=== PATIENT | male | born 1950 | race Caucasian/White ===

== ENCOUNTER 2018-03-23 19:43 | Emergency (ER) | payer OTHER, MEDICAID ==
[~2018-03-23] VITALS: Ht 182.9 cm; Wt 77.3 kg
[2018-03-23 20:12] VITALS: Ht 182.9 cm; Wt 77.3 kg
[2018-03-23 20:46] LABS: BASOPHILS 0.3 % (0-2); EOSINOPHILS 1.1 % (0-7); HEMATOCRIT 45.1 % (42.0-54.0); HEMOGLOBIN 14.2 g/dL (13.5-17.5); IMMATURE GRANULOCYTES 0.3 % (0-5); LYMPHOCYTES 10.6 % (15-50); MCH 22.8 pg (26.0-34.0); MCHC 31.5 g/dL (31.0-37.0); MCV 72.3 fL (80.0-100.0); MEAN PLATELET VOLUME 10.1 fL (7.4-10.4); MONOCYTES 4.3 % (2-11); NEUTROPHILS 83.4 % (40-80); PLATELET COUNT 272 10x3/uL (130-400); RBC 6.24 10x6/uL (4.20-6.10); RDW 20.2 % (11.5-14.5); WBC 10.7 10x3/uL (4.8-10.8)
[2018-03-23 20:49] LABS: APPEARANCE CLEAR (CLEAR); BILIRUBIN NEGATIVE (NEGATIVE); COLOR YELLOW (YELLOW); GLUCOSE NEGATIVE (NEGATIVE); KETONE NEGATIVE (NEGATIVE); NITRITE NEGATIVE (NEGATIVE); PROTEIN 3+ mg/dL (NEGATIVE); RED CELLS - URINE OCC /hpf (0-5); SPECIFIC GRAVITY 1.015 (1.005-1.020); UROBILINOGEN NORMAL (NORMAL)
[2018-03-23 20:49] LABS: ALBUMIN 2.6 g/dL (3.4-5.0); ALKALINE PHOSPHATASE 323 U/L (46-116); ALT (SGPT) 41 U/L (10-68); BILIRUBIN - TOTAL 1.27 mg/dL (0.2-1.3); CALC OSMOLALITY 279 mosm/kg (275-300); CALCIUM 8.9 mg/dL (8.5-10.1); CHLORIDE - SERUM 100 mmol/L (98-107); GLUCOSE 103 mg/dL (74-106); POTASSIUM - SERUM 4.1 mmol/L (3.5-5.1); PROTEIN - SERUM 7.7 g/dL (6.4-8.2); SODIUM 137 mmol/L (136-145); UREA NITROGEN 30 mg/dL (7-18); eGFR NON AFRICAN AMERICAN 79 mL/min (90-120)
[2018-03-23 20:50] LABS: WHITE CELLS - URINE OCC /hpf (0-5)
[2018-03-23] MEDS ORDERED: FUROSEMIDE20 MG PO (21:59)
[2018-03-23 23:11] VITALS: BP 186/107
== END 2018-03-23 23:11 | disposition home or self-care (01) ==
LOC: D.ER 19:43
PROVIDERS: Emergency Medicine
DX: R10.9 Unspecified abdominal pain (principal); I50.9 Heart failure, unspecified

== ENCOUNTER 2018-09-19 11:24 | Inpatient (IN) | payer OTHER, MEDICAID ==
[2018-09-19] VITALS (14 sets, daily range): BP systolic 163–197; BP diastolic 92–120; BMI 26.3
[~2018-09-19] VITALS: Ht 182.9 cm; Wt 69.6 kg
[~2018-09-19 11:24] MED LIST: FUROSEMIDE20 MG PO
[2018-09-19 12:25] LABS: BASOPHILS 0.1 % (0-2); EOSINOPHILS 0.3 % (0-7); HEMATOCRIT 43.2 % (42.0-54.0); HEMOGLOBIN 14.4 g/dL (13.5-17.5); IMMATURE GRANULOCYTES 0.3 % (0-5); LYMPHOCYTES 7.6 % (15-50); MCHC 33.3 g/dL (31.0-37.0); MCV 75.1 fL (80.0-100.0); MONOCYTES 7.6 % (2-11); NEUTROPHILS 84.1 % (40-80); RBC 5.75 10x6/uL (4.20-6.10); RDW 23.3 % (11.5-14.5); WBC 11.8 10x3/uL (4.8-10.8)
[2018-09-19 12:28] LABS: PLATELET COUNT 200 10x3/uL (130-400)
[2018-09-19 12:42] LABS: ALBUMIN 2.9 g/dL (3.4-5.0); ANION GAP 15.1 mmol/L (8-16); BILIRUBIN - TOTAL 2.84 mg/dL (0.2-1.3); CALCIUM 9.3 mg/dL (8.5-10.1); CARBON DIOXIDE 24.8 mmol/L (21.0-32.0); CREATININE - SERUM 1.5 mg/dL (0.6-1.3); POTASSIUM - SERUM 3.9 mmol/L (3.5-5.1); PROTEIN - SERUM 6.7 g/dL (6.4-8.2)
--- NOTE | 2018-09-19 13:00 | NUR ---
PATIENT CLEANED, DRIED FECES TO BOTH LEGS RIGHT FOOT AND BUTTOCKS. PATIENT ROLLED, STAGE 1-2 BREAKDOWN NOTED TO COCCYX, STAGE 2-3 BREAKDOWN NOTED TO SCROTUM AND BOTH GLUTEELS. PATIENT CLEANED AND ALL LINEN CHANGED.
--- NOTE | 2018-09-19 14:05 | NUR ---
IN AND OUT CATH FOR URINE SAMPLE DONE, 500CC YELLOW URINE EMPTIED FROM BLADDER, SAMPLE TO LAB.
[2018-09-19 14:16] LABS: UDS - AMPHET NEGATIVE QUAL (NEGATIVE); UDS - BARB NEGATIVE QUAL (NEGATIVE); UDS - BENZO NEGATIVE QUAL (NEGATIVE); UDS - COCAINE NEGATIVE QUAL (NEGATIVE); UDS - OPIATE NEGATIVE QUAL (NEGATIVE); UDS - PCP NEGATIVE QUAL (NEGATIVE); UDS - THC NEGATIVE QUAL (NEGATIVE)
[2018-09-19 14:29] LABS: APPEARANCE CLEAR (CLEAR); BACTERIA FEW /hpf (NONE SEEN); BILIRUBIN NEGATIVE (NEGATIVE); COLOR YELLOW (YELLOW); EPITHELIAL CELLS 0-5 /hpf (0-5); GLUCOSE NEGATIVE (NEGATIVE); KETONE NEGATIVE (NEGATIVE); MUCUS <1+ /lpf (NONE SEEN); NITRITE NEGATIVE (NEGATIVE); PROTEIN TRACE mg/dL (NEGATIVE); RED CELLS - URINE 0-5 /hpf (0-5); SPERMATOZOA RARE /hpf (NONE SEEN); UROBILINOGEN NORMAL (NORMAL); WHITE CELLS - URINE OCC /hpf (0-5)
[2018-09-19 18:17] LABS: CREATINE KINASE 1148 UL (21-232)
[2018-09-19 18:18] LABS: CKMB 11.3 U/L (0.0-3.6)
--- NOTE | 2018-09-19 19:40 | NUR ---
SECOND IV STARTED 20G RIGHT WRIST. FOLET CATH INSERTED INTO BLADDER TO GRAVITY DRAIN, YELLOW URINE RETURN NOTED.
--- NOTE | 2018-09-19 19:45 | NUR ---
PT RECIEVED FROM ER VIA STRETCHER, ASSESSMENT COMPLETED, CONFUSED, L PIV INTACT WITH 1/2 NS @ 100CC/HR, R PIV INTACT WITH DOBUTAMINE GTT @ 2.5 MCG, WILKINS PATENT TO BSD WITH CLEAR YELLOW URINE,WILL CONT TO MONITOR
--- NOTE | 2018-09-19 21:30 | NUR ---
PT REMAINS CONFUSED, PULLED OFF TELEMETRY, INTSRUCTED PT NOT TO PULL AT TUBES OR LINES, PT AGREED TO COMPLY FOR NOW
--- NOTE | 2018-09-19 23:30 | NUR ---
JEMAL LAND, B/P 182/111, ORDERS RECIEVED, D/C'D DOBUTAMINE GTT, GIVEN HYDRALAZINE PO
[2018-09-20] VITALS (13 sets, daily range): BP systolic 148–201; BP diastolic 87–122; Ht 182.9 cm; Wt 69.6 kg
--- NOTE | 2018-09-20 01:45 | NUR ---
PAGED DR LAND, B/P REMAINS HIGH, DIASTOLIC REMAINS ABOVE 100, ORDERS RECIEVED FOR CLONIDINE PO
--- NOTE | 2018-09-20 02:00 | NUR ---
PT REFUSED TO TAKE MEDICATION, EXPLAINED TO PT THE DANGERS OF EXTREMELY HIGH B/P, LEN [place] @ BEDSIDE DISCUSSING WITH PT, PT STATES HE WILL BE FINE AND THAT HE DOESNT TAKE MEDICINE
--- NOTE | 2018-09-20 02:00 | NUR ---
TRIED TO GIVE PT HIS ORAL B/P MEDICATION, PT REFUSED. AFTER EXPLANINING IMPORTANCE OF MEDICATION HE STILL REFUSED. WHEN I ASKED IF HE WOULD RATHER GET THE MEDICATION THROUGH HIS IV HE SAID "WHAT ARE YOU GONNA DO FORCE ME," I EXPLAINED THAT I COULD NOT FORCE HIM TO TAKE IT. I SPENT APX 15 MINS TRYING TO CONVINCE HIM TO TAKE THE MEDICATION AND THE BENEFITS OF IT, HE STILL REFUSED SEVERAL TIMES.
--- NOTE | 2018-09-20 02:32 | NUR ---
B/P REMAINS HIGH, GIVEN METOPROLOL 5 MG IVP
--- NOTE | 2018-09-20 03:18 | NUR ---
PT CONTINUES TO REFUSE TO TAKE PO MEDS FOR B/P, 198/117
[2018-09-20 04:54] LABS: BASOPHILS 0.2 % (0-2); EOSINOPHILS 0.6 % (0-7); HEMATOCRIT 41.8 % (42.0-54.0); HEMOGLOBIN 13.7 g/dL (13.5-17.5); IMMATURE GRANULOCYTES 0.2 % (0-5); LYMPHOCYTES 4.5 % (15-50); MCH 24.4 pg (26.0-34.0); MCHC 32.8 g/dL (31.0-37.0); MCV 74.5 fL (80.0-100.0); MONOCYTES 12.1 % (2-11); NEUTROPHILS 82.4 % (40-80); PLATELET COUNT 177 10x3/uL (130-400); RBC 5.61 10x6/uL (4.20-6.10); RDW 23.1 % (11.5-14.5); WBC 10.5 10x3/uL (4.8-10.8)
[2018-09-20 05:13] LABS: ANION GAP 12.2 mmol/L (8-16); CALCIUM 8.8 mg/dL (8.5-10.1); CARBON DIOXIDE 28.3 mmol/L (21.0-32.0); CREATININE - SERUM 1.2 mg/dL (0.6-1.3); POTASSIUM - SERUM 3.5 mmol/L (3.5-5.1)
--- NOTE | 2018-09-20 05:39 | NUR ---
PT CONTINUES TO REFUSE PO MEDS, INSTRUCTED ON RISKS
--- NOTE | 2018-09-20 07:15 | NUR ---
PATIENT BLOOD PRESSURE IS 197/121. PATIENT REFUSED MEDICATION. INSTRUCTED ON RISKS. PATIENT DISORIENTED TO PLACE AND TIME. WILL CONTINUE TO MONITOR BLOOD PRESSURE.
--- NOTE | 2018-09-20 07:18 | NUR ---
PATIENT CONTINUE TO DENY MEDICATIONS. BP IS HIGH. TEACHING WAS DONE ON RISKS OF REFUSING MEDS. PATIENT IS DISORIENTED TO PLACE AND TIME. BRIJESH ASKED MULTIPLE TIMES WHERE HE IS AT. REORIENTED TO PLACE AND TIME.
--- NOTE | 2018-09-20 09:30 | NUR ---
JENIFER PHILIP AT BEDSIDE. UPDATE GIVEN.
--- NOTE | 2018-09-20 11:00 | NUR ---
PATIENT DID NOT HAVE CLONIDINE PATCH ON. FOUND IN BED. PATIENT HAD REMOVED IT. WILL PROVIDE A NEW ONE
--- NOTE | 2018-09-20 11:30 | NUR ---
PATIENT RESTING. BLOOD PRESSURE 147/83. HR 56. WILL CONTINUE TO MONITOR.
--- NOTE | 2018-09-20 13:00 | NUR ---
PATIENT RESTING. PATIENT DENIES PO APRESOLINE. WILL CONTINUE TO MONITOR AT THIS TIME.
--- NOTE | 2018-09-20 16:00 | NUR ---
PATIENT DENIES BATH. WHEN APPROACHED TO BATHE PATIENT STATED "YOU ARE NOT GOING TO TOUCH ME"
--- NOTE | 2018-09-20 17:21 | NUR ---
REPORT GIVEN TO JITENDRA
--- NOTE | 2018-09-20 18:33 | NUR ---
RECEIVED FROM ICU TRANSFER. HE IS ALERT TO NAME AND KNOWS HE IS IN THE HOSPITAL. LEFT BKA. RIGHT FOOT WITH EDEMA 2+ PULSE IS PALPABLE BUT WEAK. RIGHT LEG IS RED TO FRONT OF IT AND APPEARS TO HAVE MULTIPLE SCRATCH LUNA ON IT. HE IS UNKEPT IN APPEARANCE WITH LONG HOPSON AND SMELLS OF URINE BUT REFUSES TO BE WASHED UP. TELEMENTRY IS ON. HE HAS IV IN RIGHT WRIST INFUSING WITH SITE CLEAR. LEFT A/C SALINE LOCK. HE HAS MULTIPLE SKIN ISSUES ACCORDING TO REPORT BUT REFUSES TO LET ME DO BODY AUDIT, STATES MAYBE LATER. F/C PATENT WITH FLORES URINE NOTED. BBS ARE CLEAR RESP EVEN WITHOUT LABOR DENIES ANY PAIN OR DISCOMFORT. BED ALARM IS ON AND BED IS LOWEST POSITION AND LOCKED. CL IN REACH AND HE IS ORIENTED ON HOW TO USE IT.
--- NOTE | 2018-09-20 20:01 | NUR ---
REPORT RECIEVED AND ROUNDING COMPLETE. PATIENT SITTING UP IN BED, AT BEDSIDE, PATIENT REQUESTING BEDPAD FOR A BOWEL MOVEMENT WHEN I GO IN THE ROOM TO PUT HIM ON BEDPAN PATIENT REFUSES THIS HAS HAPPENED 4 TIMES IN THE LAST 20 MINUTES. PATIENT'S STAT LOCKED FOR WILKINS CATH WAS STRETCHED OUT VERY FAR, ALITTLE BLOOD AT THE TIP OF PENIS. REPOSITIONED HIS STAT LOCK. PAT HAS A .5NS RUNNING IN RIGHT WRIST. PATIENT REFUSING TO WEAR O2 AT THIS TIME. PATIENT DENIES ANY NEEDS AT THIS TIME. CALL LIGHT WITHIN REACH AND BED IN LOWEST LOCKED POSITION.
[2018-09-21] VITALS: BP 183/98
--- NOTE | 2018-09-21 | NUR ---
BP IS ELEVATED. CLONIDINE GIVEN ORDERED.
[2018-09-21 04:00] VITALS: BP 172/93
[2018-09-21 05:02] LABS: BASOPHILS 0.2 % (0-2); EOSINOPHILS 1.9 % (0-7); HEMATOCRIT 44.9 % (42.0-54.0); HEMOGLOBIN 14.7 g/dL (13.5-17.5); IMMATURE GRANULOCYTES 0.2 % (0-5); LYMPHOCYTES 9.2 % (15-50); MCHC 32.7 g/dL (31.0-37.0); MONOCYTES 9.8 % (2-11); NEUTROPHILS 78.7 % (40-80); PLATELET COUNT 196 10x3/uL (130-400); RBC 5.87 10x6/uL (4.20-6.10); RDW 23.6 % (11.5-14.5)
[2018-09-21 05:04] LABS: INR 1.36 (0.85-1.17); PROTIME 16.2 SECONDS (11.6-15.0)
[2018-09-21 05:06] LABS: MCV 76.5 fL (80.0-100.0)
[2018-09-21 05:48] LABS: ALBUMIN 2.5 g/dL (3.4-5.0); ALKALINE PHOSPHATASE 174 U/L (46-116); ALT (SGPT) 10 U/L (10-68); BILIRUBIN - TOTAL 1.45 mg/dL (0.2-1.3); CALC OSMOLALITY 291 mosm/kg (275-300); CALCIUM 9.6 mg/dL (8.5-10.1); CARBON DIOXIDE 28.2 mmol/L (21.0-32.0); CHLORIDE - SERUM 106 mmol/L (98-107); CREATININE - SERUM 1.2 mg/dL (0.6-1.3); GLUCOSE 78 mg/dL (74-106); LDH 339 U/L (85-227); PHOSPHOROUS 3.4 mg/dL (2.5-4.9); PROTEIN - SERUM 6.2 g/dL (6.4-8.2); SODIUM 142 mmol/L (136-145); UREA NITROGEN 40 mg/dL (7-18); eGFR NON AFRICAN AMERICAN 64 mL/min (90-120)
[2018-09-21 05:49] LABS: CREATINE KINASE 345 UL (21-232)
[2018-09-21 05:50] LABS: CKMB 2.4 U/L (0.0-3.6)
--- NOTE | 2018-09-21 06:55 | NUR ---
REPORT RECEIVED. HE HAS LEFT BKA. RIGHT FRONT OF LEG IS SWOLLEN AND RED. APPEARS TO HAVE SOME SCRATCHES PRESENT. HE STATES LET ME REST SOME MORE. CL IN REACH. F/C PATENT WITH FLORES URINE. BED IN LOWEST POSITION AND LOCKED.
--- NOTE | 2018-09-21 09:15 | NUR ---
NURSE NOTIFIED IR OF PT REFUSING PROCEDURE AT THIS TIME. INFORMED NURSE THIS PROCEDURE WILL NOT BE DONE TODAY IF HE IS REFUSING WE HAVE A FULL SCHEDULE AND HE IS GIVING UP HIS SPOT. MAY RESCHEDULE FOR MONDAY IF PT IS AGREEABLE.
[2018-09-21 09:27] VITALS: BP 154/88
--- NOTE | 2018-09-21 09:30 | NUR ---
BED BATH AND LINEN CHANGE DONE. ALL DRESSINGS CHANGED TO WOUNDS ALL ON RIGHT SIDE OF BODY. HE IS COOPERATIVE WITH CARE BUT WEAK AND UNABLE TO TURN OVER WITHOUT ASSIST
--- NOTE | 2018-09-21 09:45 | NUR ---
DR BROWN IS AWARE OF HIS REFUSAL TO SIGN CONSENT. HE WAS GIVEN BREAKFAST TRAY AFTER HIS REFUSAL
[2018-09-21 13:45] VITALS: BP 171/84
--- NOTE | 2018-09-21 14:44 | MORECARE ---
CASE MANAGEMENT DISCHARGE SUMMARY PATIENT: HARRIS RAYO UNIT: [id number] ADM DATE: 09/19/18 AGE: 68 : 51 SEX: M ROOM/BED: D.2104 AUTHOR: GUSTABO CALLE PHYSICIAN: REFERRING PHYSICIAN: MILAGRO FORTE MD DATE OF SERVICE: 09/21/18 Discharge Plan Patient Name: HARRIS RAYO [facility] [facility] 1950 Planned Disposition: Home with Home Health Anticipated Discharge Date: 09/24/18 Discharge Date: Expected LOS: 5 Initial Reviewer: [email or web address] Initial Review Date: 09/19/2018 Generated: 09/21/18 3:43 pm Patient Name: HARRIS RAYO Page [phone] at 1444 All edits/amendments must be made on the electronic document DICTATION DATE: 09/21/18 144 ROOMS DIRECTOR: LNYDSAY 09/21/18 1443 RPT#: [id number] DC DATE: STATUS: ADM IN [facility] [address] [place] [address] END OF REPORT
--- NOTE | 2018-09-21 14:53 | MORECARE ---
CASE MANAGEMENT DISCHARGE SUMMARY PATIENT: HARRIS RAYO UNIT: [id number] ADM DATE: 09/19/18 AGE: 68 : 51 SEX: M ROOM/BED: D.6796 AUTHOR: ALVA,DOC PHYSICIAN: REFERRING PHYSICIAN: MILAGRO FORTE MD DATE OF SERVICE: 09/21/18 Discharge Plan Patient Name: HARRIS RAYO Facility: [facility]:[place] : 1950 Planned Disposition: Home with Home Health Anticipated Discharge Date: 09/24/18 Discharge Date: Expected LOS: 5 Initial Reviewer: [email or web address] Initial Review Date: 09/19/2018 Generated: 09/21/18 3:53 pm Comments DCP- Discharge Planning Updated by [email or web address]: Radha Love on 09/21/18 1:[address] Patient Name: HARRIS RAYO Admission Status: ER Accout number: [id number] Admission Date: 09-19-2018 : 1950 Admission Diagnosis:WEAKNESS Attending: MILAGRO FORTE Current LOS: 2 Anticipated DC Date: 09-24-2018 Planned Disposition: Home with Home Health Primary Insurance: [employer] Discharge Planning Comments: DC PLAN: Rehab vs Home with and Home Health. DC NEEDS: PT/OT Eval to see if he will participate. CM met with patient to complete initial dc planning assessment. Patient not answering questions so CM called his Peg. CM educated patient and Peg on the CM role and verbal consent given by patient's to complete assessment. CM verified patient's address, phone number, and emergency contact phone numbers. Patient lives at home with her. She reports for the past year and a half the patient has basically sat in his recliner 95 % of the time with 75% sleeping. She reports he gets up to go to the bathroom or to the refrigerator. She reports he basically crawls around when he does get out of the chair. Cm asked If he was able to get dressed or take his clothes off and she said he just doesn't wear clothes. He sits around naked (which is what he has done for a long time). At discharge she feel he would benefit from rehab but she is not sure he will agree to go. Patient shook his head yes when I asked him, however CM is not sure he will participate in therapy as he has been refusing most thing this far during his stay. Order received for OT/PT emmanuelal to see if he will participate. If he will not participate in therapy neither his insurance or a rehab will accept him. He is a managed medicare and will require authorization. Cm told the if he did not participate than he would have to return home and we could try home Health. She does not have a preference on HH and she cant remember who they have used in the past. Patient's reports she will transport him home at time of discharge if he is able to get in the car. If not he may require ambulance transport home. CM will continue to follow and will assist as needed with dc plans/needs. Security Business Analyst: Radha Love RN, [facility] DCPIA - Discharge Planning Initial Assessment Updated by [id number]: Radha Love on 09/21/18 2:45 pm * How many steps to enter\exit or inside your home? * PCP Dr. Scott * Pharm[facility] on [address] * Preadmission Environment Home with Family * ADLs Partial Dependent * Partial ADLs (Assistance needed) Bathing Dressing Medication Management Toileting * Equipment Bedside Commode Cane * List name and contact numbers for known caregivers / representatives who currently or will assist patient after discharge: Peg Rayo - - [phone] * Verbal permission to speak to the caregivers and representatives has been obtained from the patient. Yes * Community resources currently utilized None * Additional services required to return to the preadmission environment? Yes * Can the patient safely return to the preadmission environment? Yes * Has this patient been hospitalized within the prior 30 days at any hospital? No Last DP export: 09/21/18 1:44 pm Patient Name: HARRIS RAYO Page [id number] at 1453 All edits/amendments must be made on the electronic document DICTATION DATE: 09/21/187 AGRICULTURAL EDUCATION PROFESSOR: LYNDSAY 09/21/181452 RPT#: [id number] DC DATE: STATUS: ADM IN [facility] [address] [place] [address] END OF REPORT
[2018-09-21 17:18] VITALS: BP 179/93
[2018-09-21 20:00] VITALS: BP 151/75
--- NOTE | 2018-09-21 20:07 | NUR ---
EVENING ROUNDS COMPLETED. REPORT RECEIVED. PT SITTING UP IN BED WITH EYES OPEN, RR EVEN AND UNLABORED. BED IN LOW POSITION. 60 SINUS RHYTMN ON TELEMETRY. INTRODUCED SELF TO PT. PT DENIES FURTHER NEEDS AT THIS TIME. NO S/S OF DISTRESS NOTED. CALL LIGHT IN REACH. WILL CTM./
[2018-09-22] VITALS: BP 128/63
--- NOTE | 2018-09-22 01:30 | NUR ---
PT HAS MADE MULTIPLE ATTEMPTS TO GET OUT OF BED, STATING HE WANTS TO SIT IN THE BATHROOM. PT DENIES NEEDING TO HAVE A BOWEL MOVEMENT. I INSTRUCTED PT HE NEEDS TO STAY IN BED HE IS A HIGH FALL RISK. PT LOUDLY STATES BACK I DONT WANT TO GET BACK IN BED AND ASKED TO HANG OFF THE SIDE OF THE BED TO WHICH I THEN STATED THE PATIENT COULD NOT HAS OBVIOUS ISSUES WITH MAINTAINING HIS BALANCE. PT LATER LAID BACK INTO THE BED AND COMPLIED. THE DAVID ALARM IS CURRENTLY ON AND THE DOOR IS OPEN, WILL CTM.
--- NOTE | 2018-09-22 03:52 | NUR ---
I have reviewed this patient and I concur with the Shift Assessment completed by the Licensed Practical Nurse today this shift.
[2018-09-22 04:00] VITALS: BP 170/104
[2018-09-22 05:15] LABS: BASOPHILS 0.1 % (0-2); EOSINOPHILS 2.8 % (0-7); HEMATOCRIT 42.3 % (42.0-54.0); HEMOGLOBIN 13.6 g/dL (13.5-17.5); IMMATURE GRANULOCYTES 0.2 % (0-5); LYMPHOCYTES 12.2 % (15-50); MCH 24.4 pg (26.0-34.0); MCHC 32.2 g/dL (31.0-37.0); MCV 75.9 fL (80.0-100.0); MONOCYTES 7.5 % (2-11); NEUTROPHILS 77.2 % (40-80); PLATELET COUNT 159 10x3/uL (130-400); RBC 5.57 10x6/uL (4.20-6.10); RDW 23.4 % (11.5-14.5); WBC 8.4 10x3/uL (4.8-10.8)
--- NOTE | 2018-09-22 05:22 | NUR ---
ADMINISTERED ORDERED CATAPRES 0.1 MG PO FOR PT BLOOD PRESSURE OF 170/106
[2018-09-22 05:33] LABS: ALBUMIN 2.2 g/dL (3.4-5.0); ANION GAP 9.6 mmol/L (8-16); BILIRUBIN - TOTAL 1.17 mg/dL (0.2-1.3); CALCIUM 8.7 mg/dL (8.5-10.1); CREATININE - SERUM 1.2 mg/dL (0.6-1.3); POTASSIUM - SERUM 3.6 mmol/L (3.5-5.1); PROTEIN - SERUM 5.8 g/dL (6.4-8.2)
--- NOTE | 2018-09-22 07:00 | NUR ---
RECEIVED REPORT. ASSUMED CARE OF PATIENT. CALL LIGHT WITHIN REACH. BED ALARM TO FULL SURFACE AREA PATENT. NO DISTRESS. RESP EVEN AND UNLABORED. PATIENT ASKING FOR A BEER THIS AM.
--- NOTE | 2018-09-22 08:30 | NUR ---
ASSISTED TO PULL PATIENT UP IN BED FOR AM MEAL.
[2018-09-22 08:50] VITALS: BP 174/107
[2018-09-22 12:30] VITALS: BP 165/91
--- NOTE | 2018-09-22 15:15 | NUR ---
PATIENT ATTEMPTING TO GET OOB TO GO TO THE RESTROOM. EXPLAINED TO PATIENT THAT IT WAS NOT SAFE FOR HIM TO GET UP WITHOUT PROSTEHSIS AND THAT WE DON'T KNOW HOW STRONG HE IS AFTER FALLING AT HOME. THIS COPS OFFERED A BEDPAN. PATIENT REFUSED BEDPAN AND CONTINUED TO TRY AND GET OOB. THIS COPS CALLED FOR UNIT CHARGE NURSE. CHARGE NURSE DECIDED TO TRY AND PUT PATIENT ON BEDSIDE COMMODE. UPON TRANSFERRING PATIENT TO BEDSIDE COMMODE, PATIENT GRABBED THE BEDRAILS AND BUCKLED HIS LEGS LEAVING ALL WEIGHT ON THIS COPS AND THE CHARGE NURSE. PATIENT LIFTED BACK ONTO BED AND ASSISTANCE CALLED FOR REPOSITIONING PATIENT AND PULLING PATIENT UP IN BED. PATIENT THEN PLACED ON BEDPAN. CALL LIGHT WITHIN REACH. NO DISTRESS.
[2018-09-22 16:36] VITALS: BP 153/90
--- NOTE | 2018-09-22 19:30 | NUR ---
EVENING ROUNDS COMPLETED. REPORT RECEIVED. PT SITTING UP IN BED WITH EYES OPEN, RR EVEN AND UNLABORED. BED IN LOW POSITION. 57 SINUS ON TELEMETRY. DAVID ALARM TURNED ON. INTRODUCED SELF TO PT. RT HAND PIV INFUSING NS ORDERED. DENIES FURTHER NEEDS AT THIS TIME. CALL LIGHT IN REACH, WILL CTM.
[2018-09-22 20:00] VITALS: BP 156/87
--- NOTE | 2018-09-22 20:56 | NUR ---
CALLED ANSWERING SERVICE FOR DR FORTE, PT REPEATEDLY MAKING ATTEMPTS TO CLIMB OUT OF BED AFTER FALL RISK EDUCATION PROVIDED TO PT.
--- NOTE | 2018-09-22 21:17 | NUR ---
RECEIVED CALL BACK FROM TUNG BAXTER NURSE PRACTICIONER, ORDERED 1 MG LORAZPEM IV PUSH EVERY 6 HOURS FOR PT AGITATION AND ANXIETY.
[2018-09-23] VITALS: BP 176/98
--- NOTE | 2018-09-23 00:03 | NUR ---
ADMINISTERED ORDERED HYDRALAZINE 5 MG IV FOR PT BLOOD PRESSURE OF 176/98. WILL CTM.
--- NOTE | 2018-09-23 01:42 | NUR ---
ADMINISTERED ORDERED CATAPRES 0.1 MG PO FOR PT BLOOD PRESSURE OF 189/76
--- NOTE | 2018-09-23 01:52 | NUR ---
I have reviewed this patient and I concur with the Shift Assessment completed by the Licensed Practical Nurse today this shift.
[2018-09-23 04:00] VITALS: BP 180/96
[2018-09-23 04:59] LABS: BASOPHILS 0.5 % (0-2); EOSINOPHILS 4.4 % (0-7); HEMATOCRIT 45.3 % (42.0-54.0); HEMOGLOBIN 14.4 g/dL (13.5-17.5); IMMATURE GRANULOCYTES 0.4 % (0-5); LYMPHOCYTES 9.3 % (15-50); MCH 24.7 pg (26.0-34.0); MCHC 31.8 g/dL (31.0-37.0); MCV 77.6 fL (80.0-100.0); MEAN PLATELET VOLUME 10.4 fL (7.4-10.4); MONOCYTES 19.4 % (2-11); PLATELET COUNT 152 10x3/uL (130-400); RBC 5.84 10x6/uL (4.20-6.10); RDW 23.5 % (11.5-14.5); WBC 7.9 10x3/uL (4.8-10.8)
--- NOTE | 2018-09-23 05:07 | NUR ---
ADMINISTERED ORDERED CATAPRES 0.1 MG PO FOR PT BLOOD PRESSURE OF 180/96
[2018-09-23 06:14] LABS: ANION GAP 15.2 mmol/L (8-16); CALCIUM 8.3 mg/dL (8.5-10.1); CARBON DIOXIDE 24.6 mmol/L (21.0-32.0); CREATININE - SERUM 1.2 mg/dL (0.6-1.3); POTASSIUM - SERUM 3.8 mmol/L (3.5-5.1)
--- NOTE | 2018-09-23 08:02 | NUR ---
PT SLOW TO RESOND THIS AM DURING ROUNDS. PT IS LAYING WITH HIS EYES CLOSEDBREATHING EVENLY. PT DENIES ANY PAIN AT THIS TIME. IV IS PATENT AND RUNNING IN THE RIGHT FOREARM WITH NORMAL SALINE AT 30. 2 L OF O2 ARE BEING USED. WILKINS IS PATENT TO THE LEFT SIDE OF THE BED AND STAT LOCK IS IN PLACE. DENIES ANY NEEDS AT THIS TIME OTHER THAN BEING LEFT ALONE. CALL LIGHT IS IN REACH AND BED IS IN LOW POSTIION.
[2018-09-23 08:55] VITALS: BP 161/93
[2018-09-23 13:01] VITALS: BP 182/112
[2018-09-23 17:59] VITALS: BP 132/65
[2018-09-23 20:00] VITALS: BP 143/72
--- NOTE | 2018-09-23 20:04 | NUR ---
EVENING ROUNDS COMPLETED. REPORT RECEIVED. PT SITTING UP IN BED WITH EYES OPEN, RR EVEN AND UNLABORED. 55 SINUS ANAND ON TELEMETRY. NO S/S OF DISTRESS NOTED. AT BEDSIDE. INTRODUCED SELF TO PT. PT DENIES FURTHER NEEDS AT THIS TIME. CALL LIGHT IN REACH. WILL CTM.
--- NOTE | 2018-09-23 21:11 | NUR ---
EVENING MEDICATIONS ADMINISTERED WITHOUT ISSUE. PT SITTING UP IN BED WITH EYES OPEN, RR EVEN AND UNLABORED. NO S/S OF DISTRESS NOTED. CALL LIGHT IN REACH. WILL CTM.
[2018-09-24] VITALS: BP 162/80; BP 163/95; BP 212/112
--- NOTE | 2018-09-24 02:56 | NUR ---
I have reviewed this patient and I concur with the Shift Assessment completed by the Licensed Practical Nurse today this shift.
[2018-09-24 04:00] VITALS: BP 190/97
[2018-09-24 04:24] LABS: ANION GAP 5.6 mmol/L (8-16); CALCIUM 8.5 mg/dL (8.5-10.1); CREATININE - SERUM 1.2 mg/dL (0.6-1.3); POTASSIUM - SERUM 3.8 mmol/L (3.5-5.1)
[2018-09-24 04:31] LABS: BASOPHILS 0.7 % (0-2); CARBON DIOXIDE 33.2 mmol/L (21.0-32.0); EOSINOPHILS 5.1 % (0-7); HEMATOCRIT 44.5 % (42.0-54.0); HEMOGLOBIN 14.1 g/dL (13.5-17.5); IMMATURE GRANULOCYTES 0.3 % (0-5); LYMPHOCYTES 10.9 % (15-50); MCH 24.4 pg (26.0-34.0); MCHC 31.7 g/dL (31.0-37.0); MCV 77.1 fL (80.0-100.0); MONOCYTES 16.6 % (2-11); NEUTROPHILS 66.4 % (40-80); PLATELET COUNT 164 10x3/uL (130-400); RBC 5.77 10x6/uL (4.20-6.10); RDW 23.3 % (11.5-14.5); WBC 6.1 10x3/uL (4.8-10.8)
--- NOTE | 2018-09-24 06:30 | NUR ---
ADMINISTERED ORDERED CATAPRES 0.1 MG PO FOR PT BLOOD PRESSURE OF 190/97
[2018-09-24 08:30] VITALS: BP 192/104
[2018-09-24 12:06] VITALS: BP 178/105
[2018-09-24 13:15] LABS: INR 1.35 (0.85-1.17); PROTIME 16.1 SECONDS (11.6-15.0)
--- NOTE | 2018-09-24 13:27 | NUR ---
Nutrition Follow-up: Diet: Regular (NPO p MN for thoracentesis) PO intake: 50% avg meal intake on 09/22 Last BM: 09/23 Wt: 194# Labs reviewed Meds reviewed Rec cardiac diet when medically feasible. [place] food preferences. RD following.
[2018-09-24 16:04] VITALS: BP 171/95
[2018-09-24 16:45] LABS: PROTEIN - BODY FLUID 2.5 G/DL
--- NOTE | 2018-09-24 17:45 | MORECARE ---
CASE MANAGEMENT DISCHARGE SUMMARY PATIENT: HARRIS RAYO UNIT: [id number] ADM DATE: 09/19/18 AGE: 68 : 52 SEX: M ROOM/BED: D.2104 AUTHOR: ALVA,DOC PHYSICIAN: REFERRING PHYSICIAN: MILAGRO FORTE MD DATE OF SERVICE: 09/24/18 Discharge Plan Patient Name: HARRIS RAYO Facility: [facility]:[place] : 1950 Planned Disposition: Home with Home Health Anticipated Discharge Date: 09/24/18 Discharge Date: Expected LOS: 5 Initial Reviewer: [email or web address] Initial Review Date: 09/19/2018 Generated: 09/24/18 6:45 pm Comments DCP- Discharge Planning Updated by [email or web address]: Alex Cavazos on 09/24/18 4:[address] Patient Name: HARRIS RAYO Encounter No: [id number] : 1950 Primary Insurance: [employer] Anticipated DC Date: 09-24-2018 Planned Disposition: NURSING HOME FACILITY External Planned Provider: TO BE DETERMINED DCP follow-up note: CM MET WITH PT AND SPOUSE IN ROOM TO DISCUSS DISCHARGE PLANNING AND NEEDS. CM UNABLE TO AWAKEN PT. PT'S SPOUSE REPORTS THE DOCTOR GAVE PT A SEDATIVE. CM DISCUSSED DISCHARGE PLANNING AND THERAPY NOTES TO DATE. PT'S SPOUSE REPORTS SHE IS NOT ABLE TO CARE FOR PT IN HIS WEAKENED STATE AT HOME AND PT WILL NEED REHAB. CM DISCUSSED AVAILABILITY OF INPATIENT AND NURSING HOME REHAB. PT'S SPOUSE WANTS TO DISCUSS OPTIONS WITH PT WHEN HE IS AWAKE. CM LEFT PT'S SPOUSE WITH HOME HEALTH PROVIDER LISTING FOR [place], CHOICE FORM AND CM CONTACT INFORMATION. PT'S SPOUSE REPORTS INABILITY TO CARE FOR PT AT HOME IN WEAKENED CONDITION. CM WAITING PT AND SPOUSE TO DISCUSS NURSING HOME REHAB OPTIONS AND MAKE A DECISION. CAMILLE Peña DCP- Discharge Planning Updated by [id number]: Radha Love on 09/21/18 1:[address] Patient Name: HARRIS RAYO Admission Status: ER Accout number: [id number] Admission Date: 09-19-2018 : 1950 Admission Diagnosis:WEAKNESS Attending: MILAGRO FORTE Current LOS: 2 Anticipated DC Date: 09-24-2018 Planned Disposition: Home with Home Health Primary Insurance: [employer] Discharge Planning Comments: DC PLAN: Rehab vs Home with and Home Health. DC NEEDS: PT/OT [facility] to see if he will participate. CM met with patient to complete initial dc planning assessment. Patient not answering questions so CM called his Peg. CM educated patient and Peg on the CM role and verbal consent given by patient's to complete assessment. CM verified patient's address, phone number, and emergency contact phone numbers. Patient lives at home with her. She reports for the past year and a half the patient has basically sat in his recliner 95 % of the time with 75% sleeping. She reports he gets up to go to the bathroom or to the refrigerator. She reports he basically crawls around when he does get out of the chair. Cm asked If he was able to get dressed or take his clothes off and she said he just doesn't wear clothes. He sits around naked (which is what he has done for a long time). At discharge she feel he would benefit from rehab but she is not sure he will agree to go. Patient shook his head yes when I asked him, however CM is not sure he will participate in therapy as he has been refusing most thing this far during his stay. Order received for OT/PT rosendo to see if he will participate. If he will not participate in therapy neither his insurance or a rehab will accept him. He is a managed medicare and will require authorization. Cm told the if he did not participate than he would have to return home and we could try home Health. She does not have a preference on HH and she cant remember who they have used in the past. Patient's reports she will transport him home at time of discharge if he is able to get in the car. If not he may require ambulance transport home. CM will continue to follow and will assist as needed with dc plans/needs. Pan Dumper: Radha Love RN, [facility] DCPIA - Discharge Planning Initial Assessment Updated by [email or web address]: Radha Love on 09/21/18 2:45 pm * How many steps to enter\exit or inside your home? * PCP Dr. Scott * [facility]acy [facility] on [address] * Preadmission Environment Home with Family * ADLs Partial Dependent * Partial ADLs (Assistance needed) Bathing Dressing Medication Management Toileting * Equipment Bedside Commode Cane * List name and contact numbers for known caregivers / representatives who currently or will assist patient after discharge: Peg Rayo - - [phone] * Verbal permission to speak to the caregivers and representatives has been obtained from the patient. Yes * Community resources currently utilized None * Additional services required to return to the preadmission environment? Yes * Can the patient safely return to the preadmission environment? Yes * Has this patient been hospitalized within the prior 30 days at any hospital? No Last DP export: 09/21/18 1:53 pm Patient Name: HARRIS RAYO Page [phone] at 1745 All edits/amendments must be made on the electronic document DICTATION DATE: 09/24/181744 STATION WORKER: LYNDSAY 09/24/181744 RPT#: [id number] DC DATE: STATUS: ADM IN [facility] [address] [place] [address] END OF REPORT
[2018-09-24 18:38] LABS: MACROPHAGES BF 18 %; NEUT - BF 34 %
--- NOTE | 2018-09-24 19:01 | NUR ---
AT REST WITH EYES CLOSED LCTA SKIN WARM AND DRY BED LOW AND LOCKED AND CALL LIGHT IS IN REACH IV TO RT FA IS SL AND WILKINS UIS TO GRAVITY WITH FLORES URINE LEFT BKA NOTED
--- NOTE | 2018-09-24 19:40 | NUR ---
B/P REPORTED RECHECK MANUALLY 189/ HISTORY SHOWS B/P RANGING AT THIS LEVEL NO OTHER SIGNS AND SYMPTOMS
--- NOTE | 2018-09-25 01:40 | NUR ---
PT IS BECOMING A BIT AGITATED PULLING OFF GOWN AND DEMANDING TO URINATE I EXPLAINED THAT HE HAD A FUNCTIONING WILKINS
--- NOTE | 2018-09-25 02:16 | NUR ---
FOUND MEPERLEX REMOVED FROM RT HIP IM APPLIED CLEAN BOARDER GAUZE AT THIS TIME
--- NOTE | 2018-09-25 03:31 | NUR ---
I have reviewed this patient and I concur with the Shift Assessment completed by the Licensed Practical Nurse today this shift.
[2018-09-25 04:00] VITALS: BP 159/92
[2018-09-25 07:57] VITALS: BP 192/96
[2018-09-25 08:07] LABS: ANION GAP 11.3 mmol/L (8-16); CALCIUM 8.9 mg/dL (8.5-10.1); CARBON DIOXIDE 29.3 mmol/L (21.0-32.0); CREATININE - SERUM 1.1 mg/dL (0.6-1.3); POTASSIUM - SERUM 3.6 mmol/L (3.5-5.1)
[2018-09-25 08:31] LABS: BASOPHILS 0.5 % (0-2); EOSINOPHILS 3.6 % (0-7); HEMATOCRIT 45.7 % (42.0-54.0); HEMOGLOBIN 14.9 g/dL (13.5-17.5); IMMATURE GRANULOCYTES 0.4 % (0-5); LYMPHOCYTES 9.5 % (15-50); MCH 24.8 pg (26.0-34.0); MCHC 32.6 g/dL (31.0-37.0); MONOCYTES 18.3 % (2-11); NEUTROPHILS 67.7 % (40-80); PLATELET COUNT 179 10x3/uL (130-400); RBC 6.01 10x6/uL (4.20-6.10); RDW 23.4 % (11.5-14.5); WBC 7.8 10x3/uL (4.8-10.8)
--- NOTE | 2018-09-25 10:53 | MORECARE ---
CASE MANAGEMENT DISCHARGE SUMMARY PATIENT: HARRIS RAYO UNIT: [id number] ADM DATE: 09/19/18 AGE: 68 : 51 SEX: M ROOM/BED: D.2104 AUTHOR: ALVA,DOC PHYSICIAN: REFERRING PHYSICIAN: MILAGRO FORTE MD DATE OF SERVICE: 09/25/18 Discharge Plan Patient Name: HARRIS RAYO Facility: [facility] : 1950 Planned Disposition: Home with Home Health Anticipated Discharge Date: 09/24/18 Discharge Date: Expected LOS: 5 Initial Reviewer: [email or web address] Initial Review Date: 09/19/2018 Generated: 09/25/18 11:52 am Comments DCP- Discharge Planning Updated by [id number]: Alex Cavazos on 09/25/18 9:[address] Patient Name: HARRIS RAYO Encounter No: [id number] : 1950 Primary Insurance: [employer] Anticipated DC Date: 09-24-2018 Planned Disposition: longterm facility External Planned Provider: to be determined DCP follow-up note: CM RECEIVED CALL FROM AURORA PHELAN OF [employer], . AURORA IS PT'S INSURANCE TELEPHONE DIRECTORY DISTRIBUTOR DRIVER AND WILL BE FOLLOWING UP WITH PT POST DISCHARGE FOR CASE MANAGEMENT IF NEEDED. CM INFORMED AURORA OF CM'S CONVERSTATION WITH PT'S SPOUSE REGARDING POSSIBLE NEED OF PRISON REHAB AT DISCHARGE. PT'S SPOUSE REPORTED INABILITY TO CARE FOR PT AT HOME IN WEAKENED CONDITION. CM WAITING PT AND SPOUSE TO DISCUSS PRISON REHAB OPTIONS AND MAKE A DECISION. CAMILLE Peña DCP- Discharge Planning Updated by [id number]: Alex Cavazos on 09/24/18 4:[address] Patient Name: HARRIS RAYO Encounter No: [id number] : 1950 Primary Insurance: NOVASYSMCR Anticipated DC Date: 09-24-2018 Planned Disposition: PRISON FACILITY External Planned Provider: TO BE DETERMINED DCP follow-up note: CM MET WITH PT AND SPOUSE IN ROOM TO DISCUSS DISCHARGE PLANNING AND NEEDS. CM UNABLE TO AWAKEN PT. PT'S SPOUSE REPORTS THE DOCTOR GAVE PT A SEDATIVE. CM DISCUSSED DISCHARGE PLANNING AND THERAPY NOTES TO DATE. PT'S SPOUSE REPORTS SHE IS NOT ABLE TO CARE FOR PT IN HIS WEAKENED STATE AT HOME AND PT WILL NEED REHAB. CM DISCUSSED AVAILABILITY OF INPATIENT AND PRISON REHAB. PT'S SPOUSE WANTS TO DISCUSS OPTIONS WITH PT WHEN HE IS AWAKE. CM LEFT PT'S SPOUSE WITH HOME HEALTH PROVIDER LISTING FOR [place], CHOICE FORM AND CM CONTACT INFORMATION. PT'S SPOUSE REPORTS INABILITY TO CARE FOR PT AT HOME IN WEAKENED CONDITION. CM WAITING PT AND SPOUSE TO DISCUSS PRISON REHAB OPTIONS AND MAKE A DECISION. Alex Cavazos, CASE MANAGEMENT DCP- Discharge Planning Updated by [id number]: Radha Love on 09/21/18 1:[address] Patient Name: HARRIS RAYO Admission Status: ER Accout number: [id number] Admission Date: 09-19-2018 : 1950 Admission Diagnosis:WEAKNESS Attending: MILAGRO FORTE Current LOS: 2 Anticipated DC Date: 09-24-2018 Planned Disposition: Home with Home Health Primary Insurance: [employer] Discharge Planning Comments: DC PLAN: Rehab vs Home with and Home Health. DC NEEDS: PT/OT Eval to see if he will participate. CM met with patient to complete initial dc planning assessment. Patient not answering questions so CM called his Peg. CM educated patient and Peg on the CM role and verbal consent given by patient's to complete assessment. CM verified patient's address, phone number, and emergency contact phone numbers. Patient lives at home with her. She reports for the past year and a half the patient has basically sat in his recliner 95 % of the time with 75% sleeping. She reports he gets up to go to the bathroom or to the refrigerator. She reports he basically crawls around when he does get out of the chair. Cm asked If he was able to get dressed or take his clothes off and she said he just doesn't wear clothes. He sits around naked (which is what he has done for a long time). At discharge she feel he would benefit from rehab but she is not sure he will agree to go. Patient shook his head yes when I asked him, however CM is not sure he will participate in therapy as he has been refusing most thing this far during his stay. Order received for OT/PT eval to see if he will participate. If he will not participate in therapy neither his insurance or a rehab will accept him. He is a managed medicare and will require authorization. Cm told the if he did not participate than he would have to return home and we could try home Health. She does not have a preference on HH and she cant remember who they have used in the past. Patient's reports she will transport him home at time of discharge if he is able to get in the car. If not he may require ambulance transport home. CM will continue to follow and will assist as needed with dc plans/needs. Java Web Services Developer: Radha Love RN, [facility] DCPIA - Discharge Planning Initial Assessment Updated by [id number]: Radha Love on 09/21/18 2:45 pm * How many steps to enter\exit or inside your home? * PCP Dr. Scott * [facility] [address] * Preadmission Environment Home with Family * ADLs Partial Dependent * Partial ADLs (Assistance needed) Bathing Dressing Medication Management Toileting * Equipment Bedside Commode Cane * List name and contact numbers for known caregivers / representatives who currently or will assist patient after discharge: Peg Rayo - - [phone] * Verbal permission to speak to the caregivers and representatives has been obtained from the patient. Yes * Community resources currently utilized None * Additional services required to return to the preadmission environment? Yes * Can the patient safely return to the preadmission environment? Yes * Has this patient been hospitalized within the prior 30 days at any hospital? No Last DP export: 09/24/18 4:45 p Patient Name: HARRIS ARYO Page 12059 at 1053 All edits/amendments must be made on the electronic document DICTATION DATE: 09/25/18 1052 COOK DINNER: LYNDSAY 09/25/18 105 RPT#: [id number] DC DATE: STATUS: ADM IN [facility] [address] [place] [address] END OF REPORT
--- NOTE | 2018-09-25 11:33 | NUR ---
IV INFILTRATED DC'D WITH CATH TIP INTACT. RESTARTED BY VASCULAR NURSE X 1 ATTEMPT WITH 22 G TO RIGHT HAND. IV INFUSING WELL.
[2018-09-25 12:50] VITALS: BP 169/83
[2018-09-25 16:52] VITALS: BP 167/94
--- NOTE | 2018-09-25 19:25 | NUR ---
AT REST WITH EYES CLOSED RESP EVEN AND UNLABORED SKIN WARMA ND DRY BED LOW AND LOCKED WILL ATTEMPT FURTHER EXAM LATER
[2018-09-25 20:00] VITALS: BP 175/89
[2018-09-26] VITALS: BP 108/61
--- NOTE | 2018-09-26 00:56 | NUR ---
BECOMING MORE CONFUSED AND AGITATED ATLUPE NIEVES
[2018-09-26 04:00] VITALS: BP 200/111
[2018-09-26 05:40] LABS: BASOPHILS 0.3 % (0-2); EOSINOPHILS 3.1 % (0-7); HEMATOCRIT 44.5 % (42.0-54.0); HEMOGLOBIN 14.6 g/dL (13.5-17.5); IMMATURE GRANULOCYTES 0.3 % (0-5); LYMPHOCYTES 8.4 % (15-50); MCHC 32.8 g/dL (31.0-37.0); MCV 76.1 fL (80.0-100.0); MONOCYTES 18.3 % (2-11); NEUTROPHILS 69.6 % (40-80); PLATELET COUNT 171 10x3/uL (130-400); RBC 5.85 10x6/uL (4.20-6.10); WBC 7.5 10x3/uL (4.8-10.8)
[2018-09-26 06:10] LABS: ANION GAP 11.9 mmol/L (8-16); CALCIUM 8.7 mg/dL (8.5-10.1); CARBON DIOXIDE 29.7 mmol/L (21.0-32.0); CREATININE - SERUM 1.1 mg/dL (0.6-1.3); POTASSIUM - SERUM 3.6 mmol/L (3.5-5.1)
--- NOTE | 2018-09-26 07:27 | NUR ---
INITIAL ROUNDING, BEDSIDE SHIFT REPORT COMPLETE. PATIENT IS SLEEPING, SNORING SOFTLY, TV ON, LIGHTS OFF, PATIENT IN SUPINE POSITION, TELE MONITOR IN PLACE
[2018-09-26 08:30] VITALS: BP 194/96
[2018-09-26 12:59] VITALS: BP 172/83
[2018-09-26 16:04] VITALS: BP 177/97
[2018-09-26 19:08] LABS: ACID FAST SMEAR Negative (()); AFB SPECIMEN PROCESSING Not Indicated (())
[2018-09-26 20:00] VITALS: BP 159/85
--- NOTE | 2018-09-26 20:05 | NUR ---
ROUNDS COMPLETED. FOUND PT SLEEPING. PT AROUSE ONLY TO VOICE. APPEARS LETHARGIC. DENIES ANY FURTHER NEEDS AT THIS TIME. WILL CPOC. CL WITHIN REACH.
--- NOTE | 2018-09-26 23:15 | NUR ---
PT BP 170/99. PRN IV HYDRALAZINE GIVEN AT THIS TIME. WILL CTM. PT IN BED WITH EYES CLOSED.
[2018-09-27] VITALS: BP 170/99
[2018-09-27 04:00] VITALS: BP 192/95
[2018-09-27 05:47] LABS: HEMOGLOBIN 15.1 g/dL (13.5-17.5); MCH 24.9 pg (26.0-34.0); MCHC 32.8 g/dL (31.0-37.0); MCV 75.8 fL (80.0-100.0); PLATELET COUNT 163 10x3/uL (130-400); RBC 6.07 10x6/uL (4.20-6.10); RDW 22.8 % (11.5-14.5); WBC 8.5 10x3/uL (4.8-10.8)
--- NOTE | 2018-09-27 05:48 | NUR ---
BP 195/95. PRN IV HYDRALAZINE GIVEN. WILL CTM.
[2018-09-27 05:56] LABS: CALC OSMOLALITY 286 mosm/kg (275-300); CALCIUM 8.7 mg/dL (8.5-10.1); CARBON DIOXIDE 32.7 mmol/L (21.0-32.0); CHLORIDE - SERUM 105 mmol/L (98-107); GLUCOSE 89 mg/dL (74-106); SODIUM 143 mmol/L (136-145); UREA NITROGEN 20 mg/dL (7-18); eGFR NON AFRICAN AMERICAN 79 mL/min (90-120)
[2018-09-27 05:57] LABS: POTASSIUM - SERUM 4.2 mmol/L (3.5-5.1)
--- NOTE | 2018-09-27 07:25 | NUR ---
PT WAS UP ON THE SIDE OF THE BED WITH SIZE CHANGER'S AT BEDSIDE. PT ATTEMPTING TO GET OUT OF BED. ALERT WITH INTERMITTENT CONFUSION. CONVINCED PT TO MOVE UP IN TO THE BED, BED ALARM TURNED ON. PT IS A LEFT BELOW THE KNEE AMPUTEE. PT REFUSES TO WEAR GOWN. PT HAS HEART MONITOR ON. RIGHT FOREARM IV WITH NORMAL SALINE @ 50. PRESSURE ULCER NOTED TO RIGHT BUTTOCK, RIGHT SHOULDER ABRASION NOTED. WILL CTM CLOSELY.
[2018-09-27 09:23] VITALS: BP 154/65; BP 99/47
--- NOTE | 2018-09-27 10:45 | NUR ---
ADMINISTERED MEDICATION AT THIS TIME, NO TROUBLE SWALLOWING. ADMINISTERED PRN ATIVAN FOR AGITATED BEHAVIOR. FAMILY AT BEDSIDE. PT IN BED SIDE CHAIR. DENIES ANY NEEDS AT THIS TIME. WILL CTM.
[2018-09-27 11:02] LABS: EOSINOPHILS 1 % (0-7); LYMPHOCYTES 11 % (15-50); MONOCYTES 26 % (2-11); NEUTROPHILS 55 % (40-80); PLATELET ESTIMATE NORMAL; ROULEAUX OCC
[2018-09-27 11:03] LABS: ELLIPTOCYTES OCC
[2018-09-27 13:30] VITALS: BP 160/76
--- NOTE | 2018-09-27 16:06 | NUR ---
PT SITTING IN BED SIDE CHAIR, NO S/S OF DISTRESS NOTED. PT IN AND OUT OF SLEEP IN CHAIR, REFUSES TO GET IN BED, BEDSIDE TABLE IN FRONT OF PT TO KEEP HIM FROM GETTING UP. DENIES ANY NEEDS. WILL CTM.
--- NOTE | 2018-09-27 16:29 | MORECARE ---
CASE MANAGEMENT DISCHARGE SUMMARY PATIENT: HARRIS RAYO UNIT: [id number] ADM DATE: 09/19/18 AGE: 68 : 51 SEX: M ROOM/BED: D.2104 AUTHOR: ALVA,DOC PHYSICIAN: REFERRING PHYSICIAN: MILAGRO FORTE MD DATE OF SERVICE: 09/27/18 Discharge Plan Patient Name: HARRIS RAYO Facility: [facility]:[place] : 1950 Planned Disposition: Home with Home Health Anticipated Discharge Date: 09/24/18 Discharge Date: Expected LOS: 5 Initial Reviewer: [email or web address] Initial Review Date: 09/19/2018 Generated: 09/27/18 5:29 pm DCP- Discharge Planning Updated by [email or web address]: Alex Cavazos on 09/25/18 9:[address] Patient Name: HARRIS RAYO Encounter No: [id number] : 1950 Primary Insurance: [employer]MCR Anticipated DC Date: 09-24-2018 Planned Disposition: retirement facility External Planned Provider: to be determined DCP follow-up note: CM RECEIVED CALL FROM AURORA PHELAN OF [employer], . AURORA IS PT'S INSURANCE BEE WORKER AND WILL BE FOLLOWING UP WITH PT POST DISCHARGE FOR CASE MANAGEMENT IF NEEDED. CM INFORMED AURORA OF CM'S CONVERSTATION WITH PT'S SPOUSE REGARDING POSSIBLE NEED OF [facility] REHAB AT DISCHARGE. PT'S SPOUSE REPORTED INABILITY TO CARE FOR PT AT HOME IN WEAKENED CONDITION. CM WAITING PT AND SPOUSE TO DISCUSS [facility] REHAB OPTIONS AND MAKE A DECISION. CAMILLE Peña DCP- Discharge Planning Updated by [email or web address]: Alex Cavazos on 09/24/18 4:[address] Patient Name: HARRIS RAYO Encounter No: [id number] : 1950 Primary Insurance: [employer]MCR Anticipated DC Date: 09-24-2018 Planned Disposition: [facility] FACILITY External Planned Provider: TO BE DETERMINED DCP follow-up note: CM MET WITH PT AND SPOUSE IN ROOM TO DISCUSS DISCHARGE PLANNING AND NEEDS. CM UNABLE TO AWAKEN PT. PT'S SPOUSE REPORTS THE DOCTOR GAVE PT A SEDATIVE. CM DISCUSSED DISCHARGE PLANNING AND THERAPY NOTES TO DATE. PT'S SPOUSE REPORTS SHE IS NOT ABLE TO CARE FOR PT IN HIS WEAKENED STATE AT HOME AND PT WILL NEED REHAB. CM DISCUSSED AVAILABILITY OF INPATIENT AND [facility] REHAB. PT'S SPOUSE WANTS TO DISCUSS OPTIONS WITH PT WHEN HE IS AWAKE. CM LEFT PT'S SPOUSE WITH HOME HEALTH PROVIDER LISTING FOR [place], CHOICE FORM AND CM CONTACT INFORMATION. PT'S SPOUSE REPORTS INABILITY TO CARE FOR PT AT HOME IN WEAKENED CONDITION. CM WAITING PT AND SPOUSE TO DISCUSS [facility] REHAB OPTIONS AND MAKE A DECISION. Alex Cavazos, CASE MANAGEMENT DCP- Discharge Planning Updated by [id number]: Radha Love on 09/21/18 1:[address] Patient Name: HARRIS RAYO Admission Status: ER Accout number: [id number] Admission Date: 09-19-2018 : 1950 Admission Diagnosis:WEAKNESS Attending: MILAGRO FORTE Current LOS: 2 Anticipated DC Date: 09-24-2018 Planned Disposition: Home with Home Health Primary Insurance: [employer] Discharge Planning Comments: DC PLAN: Rehab vs Home with and Home Health. DC NEEDS: PT/OT Eval to see if he will participate. CM met with patient to complete initial dc planning assessment. Patient not answering questions so CM called his Peg. CM educated patient and Peg on the CM role and verbal consent given by patient's to complete assessment. CM verified patient's address, phone number, and emergency contact phone numbers. Patient lives at home with her. She reports for the past year and a half the patient has basically sat in his recliner 95 % of the time with 75% sleeping. She reports he gets up to go to the bathroom or to the refrigerator. She reports he basically crawls around when he does get out of the chair. Cm asked If he was able to get dressed or take his clothes off and she said he just doesn't wear clothes. He sits around naked (which is what he has done for a long time). At discharge she feel he would benefit from rehab but she is not sure he will agree to go. Patient shook his head yes when I asked him, however CM is not sure he will participate in therapy as he has been refusing most thing this far during his stay. Order received for OT/PT eval to see if he will participate. If he will not participate in therapy neither his insurance or a rehab will accept him. He is a managed medicare and will require authorization. Cm told the if he did not participate than he would have to return home and we could try home Health. She does not have a preference on HH and she cant remember who they have used in the past. Patient's reports she will transport him home at time of discharge if he is able to get in the car. If not he may require ambulance transport home. CM will continue to follow and will assist as needed with dc plans/needs. Telemarketer: Radha Love RN, [facility] DCPIA - Discharge Planning Initial Assessment Updated by [email or web address]: Radha Love on 09/21/18 2:45 pm * How many steps to enter\exit or inside your home? * PCP Dr. Scott * [facility] [address] * Preadmission Environment Home with Family * ADLs Partial Dependent * Partial ADLs (Assistance needed) Bathing Dressing Medication Management Toileting * Equipment Bedside Commode Cane * List name and contact numbers for known caregivers / representatives who currently or will assist patient after discharge: Peg Rayo - - [phone] * Verbal permission to speak to the caregivers and representatives has been obtained from the patient. Yes * Community resources currently utilized None * Additional services required to return to the preadmission environment? Yes * Can the patient safely return to the preadmission environment? Yes * Has this patient been hospitalized within the prior 30 days at any hospital? No External Providers External Provider: [facility] Next Contact Date: 09/27/2018 Service Request Date: Service Type: Resolution: Reviewer: Comments: Last DP export: 09/25/18 9:52 a Patient Name: HARRIS RAYO Page [id number] at 1622 All edits/amendments must be made on the electronic document DICTATION DATE: 09/27/181628 FACTORY MANAGER: LYNDSAY 09/27/181628 RPT#: [id number] DC DATE: STATUS: ADM IN [facility] [address] [place] [address] END OF REPORT
--- NOTE | 2018-09-27 16:47 | MORECARE ---
CASE MANAGEMENT DISCHARGE SUMMARY PATIENT: HARRIS RAYO UNIT: [id number] ADM DATE: 09/19/18 AGE: 68 : 51 SEX: M ROOM/BED: D.2104 AUTHOR: ALVADOC PHYSICIAN: REFERRING PHYSICIAN: MILAGRO FORTE MD DATE OF SERVICE: 09/27/18 Discharge Plan Patient Name: HARRIS RAYO Facility: [facility]:[place] : 1950 Planned Disposition: Long-Term Facility Anticipated Discharge Date: 09/24/18 Discharge Date: Expected LOS: 5 Initial Reviewer: [email or web address] Initial Review Date: 09/19/2018 Generated: 09/27/18 5:47 pm DCP- Discharge Planning Updated by [email or web address]: Alex Cavazos on 09/25/18 9:[address] Patient Name: HARRIS RAYO Encounter No: [id number] : 1950 Primary Insurance: [employer]MCR Anticipated DC Date: 09-24-2018 [place] Disposition[facility] External Planned Provider: to be determined DCP follow-up note: CM RECEIVED CALL FROM AURORA PHELAN OF [employer], . AURORA IS PT'S INSURANCE SPORTS CLERK AND WILL BE FOLLOWING UP WITH PT POST DISCHARGE FOR CASE MANAGEMENT IF NEEDED. CM INFORMED AURORA OF CM'S CONVERSTATION WITH PT'S SPOUSE REGARDING POSSIBLE NEED OF ASSISTED REHAB AT DISCHARGE. PT'S SPOUSE REPORTED INABILITY TO CARE FOR PT AT HOME IN WEAKENED CONDITION. CM WAITING PT AND SPOUSE TO DISCUSS ASSISTED REHAB OPTIONS AND MAKE A DECISION. CAMILLE Peña DCP- Discharge Planning Updated by [email or web address]: Alex Cavazos on 09/24/18 4:[address] Patient Name: HARRIS RAYO Encounter No: [id number] : 1950 Primary Insurance: [employer]MCR Anticipated DC Date: 09-24-2018 Planned Disposition: ASSISTED FACILITY External Planned Provider: TO BE DETERMINED DCP follow-up note: CM MET WITH PT AND SPOUSE IN ROOM TO DISCUSS DISCHARGE PLANNING AND NEEDS. CM UNABLE TO AWAKEN PT. PT'S SPOUSE REPORTS THE DOCTOR GAVE PT A SEDATIVE. CM DISCUSSED DISCHARGE PLANNING AND THERAPY NOTES TO DATE. PT'S SPOUSE REPORTS SHE IS NOT ABLE TO CARE FOR PT IN HIS WEAKENED STATE AT HOME AND PT WILL NEED REHAB. CM DISCUSSED AVAILABILITY OF INPATIENT AND ASSISTED REHAB. PT'S SPOUSE WANTS TO DISCUSS OPTIONS WITH PT WHEN HE IS AWAKE. CM LEFT PT'S SPOUSE WITH HOME HEALTH PROVIDER LISTING FOR [place], CHOICE FORM AND CM CONTACT INFORMATION. PT'S SPOUSE REPORTS INABILITY TO CARE FOR PT AT HOME IN WEAKENED CONDITION. CM WAITING PT AND SPOUSE TO DISCUSS ASSISTED REHAB OPTIONS AND MAKE A DECISION. Alex Cavazos, CASE MANAGEMENT DCP- Discharge Planning Updated by [id number]: Radha Love on 09/21/18 1:[address] Patient Name: HARRIS RAYO Admission Status: ER Accout number: [id number] Admission Date: 09-19-2018 : 1950 Admission Diagnosis:WEAKNESS Attending: MILAGRO FORTE Current LOS: 2 Anticipated DC Date: 09-24-2018 Planned Disposition: Home with Home Health Primary Insurance: [employer] Discharge Planning Comments: DC PLAN: Rehab vs Home with and Home Health. DC NEEDS: PT/OT Eval to see if he will participate. CM met with patient to complete initial dc planning assessment. Patient not answering questions so CM called his Peg. CM educated patient and Peg on the CM role and verbal consent given by patient's to complete assessment. CM verified patient's address, phone number, and emergency contact phone numbers. Patient lives at home with her. She reports for the past year and a half the patient has basically sat in his recliner 95 % of the time with 75% sleeping. She reports he gets up to go to the bathroom or to the refrigerator. She reports he basically crawls around when he does get out of the chair. Cm asked If he was able to get dressed or take his clothes off and she said he just doesn't wear clothes. He sits around naked (which is what he has done for a long time). At discharge she feel he would benefit from rehab but she is not sure he will agree to go. Patient shook his head yes when I asked him, however CM is not sure he will participate in therapy as he has been refusing most thing this far during his stay. Order received for OT/PT eval to see if he will participate. If he will not participate in therapy neither his insurance or a rehab will accept him. He is a managed medicare and will require authorization. Cm told the if he did not participate than he would have to return home and we could try home Health. She does not have a preference on HH and she cant remember who they have used in the past. Patient's reports she will transport him home at time of discharge if he is able to get in the car. If not he may require ambulance transport home. CM will continue to follow and will assist as needed with dc plans/needs. Chinese Herbalist: Radha Love RN, [facility] DCPIA - Discharge Planning Initial Assessment Updated by [email or web address]: Radha Love on 09/21/18 2:45 pm * How many steps to enter\exit or inside your home? * PCP Dr. Scott * [facility]acy [facility] [address] * Preadmission Environment Home with Family * ADLs Partial Dependent * Partial ADLs (Assistance needed) Bathing Dressing Medication Management Toileting * Equipment Bedside Commode Cane * List name and contact numbers for known caregivers / representatives who currently or will assist patient after discharge: Peg Rayo - - [phone] * Verbal permission to speak to the caregivers and representatives has been obtained from the patient. Yes * Community resources currently utilized None * Additional services required to return to the preadmission environment? Yes * Can the patient safely return to the preadmission environment? Yes * Has this patient been hospitalized within the prior 30 days at any hospital? No Coverage Notice Reviewer: [email or web address] Jeanmarie Cavazos Notice Issued Date-Time: 09/27/2018 9:05 Notice Type: IM Discharge Notice Notice Delivered To: Family Member Relationship to Patient: Spouse Member Of Parliament Name: LUPE RAYO Delivery Method: HAND - Hand Delivered Shamika Days: Prior Verbal Notification: Recipient Understood Notice: Yes Recipient Signature: Yes Med Rec Note Co-signed by Attending: Coverage Notice Comment: Reviewer: [email or web address] Jeanmarie Cavazos Notice Issued Date-Time: 09/27/2018 9:05 Notice Type: Patient Choice Letter Notice Delivered To: Family Member Relationship to Patient: Spouse Member Of Parliament Name: LUPE RAYO Delivery Method: HAND - Hand Delivered Shamika Days: Prior Verbal Notification: Recipient Understood Notice: Yes Recipient Signature: Yes Med Rec Note Co-signed by Attending: Coverage Notice Comment: [facility] Last DP export: 09/27/18 3:29 p Patient Name: HARRIS RAYO Page 37553 at 1647 All edits/amendments must be made on the electronic document DICTATION DATE: 09/27/181646 PR[employer] BOARDS PLASMA ETCHER: LYNDSAY 09/27/181646 RPT#: [id number] DC DATE: STATUS: ADM IN [facility] [address] [place] [address] END OF REPORT
--- NOTE | 2018-09-27 16:57 | MORECARE ---
CASE MANAGEMENT DISCHARGE SUMMARY PATIENT: HARRIS RAYO UNIT: [id number] ADM DATE: 09/19/18 AGE: 68 : 52 SEX: M ROOM/BED: D.2104 AUTHOR: ALVA,DOC PHYSICIAN: REFERRING PHYSICIAN: MILAGRO FORTE MD DATE OF SERVICE: 09/27/18 Discharge Plan Patient Name: HARRIS RAYO Facility: [facility]:[place] : 1950 Planned Disposition: Prison Facility Anticipated Discharge Date: 09/24/18 Discharge Date: Expected LOS: 5 Initial Reviewer: [email or web address] Initial Review Date: 09/19/2018 Generated: 09/27/18 5:57 pm Comments DCP- Discharge Planning Updated by [email or web address]: Alex Cavazos on 09/27/18 3:[address] Patient Name: HARRIS RAYO Encounter No: [id number] : 1950 Primary Insurance: NOVASYSMCR Anticipated DC Date: 09-24-2018 Planned Disposition: Prison Facility External [facility] DCP follow-up note: CM SPOKE TO PT AND SPOUSE IN ROOM REGARDING REHAB NEEDS. PT AND SPOUSE AGREE THAT PT NEEDS REHAB, PT'S SPOUSE CHOSE [facility] WITH SECOND CHOICE OF [facility]. CHOICE SIGNED. PT IN AGREEMENT. IMPORTANT MESSAGE FROM MEDICARE PROVIDED AND EXPLAINED. CM CALLED [facility], , SPOKE TO JACOB WHO VERIFIED BEING IN PT'S INSURANCE NETWORK AND WILL REVIEW FOR ADMISSION TO REHAB. CM FAXED REFERRAL TO [facility] AT [phone]. CM WAITING ADMISSION DETERMINATION AND INSURANCE DETERMINATION FOR REHAB AT [facility]. Alex Cavazos, CASE MANAGEMENT DCP- Discharge Planning Updated by [id number]: Alex Cavazos on 09/25/18 9:[address] Patient Name: HARRIS RAYO Encounter No: [id number] : 1950 Primary Insurance: NOVASYSMCR Anticipated DC Date: 09-24-2018 Planned Disposition: penitentiary facility External Planned Provider: to be determined DCP follow-up note: CM RECEIVED CALL FROM AURORA PHELAN OF [employer], . AURORA IS PT'S INSURANCE INSERTER PROMOTIONAL ITEM AND WILL BE FOLLOWING UP WITH PT POST DISCHARGE FOR CASE MANAGEMENT IF NEEDED. CM INFORMED AURORA OF CM'S CONVERSTATION WITH PT'S SPOUSE REGARDING POSSIBLE NEED OF HALFWAY REHAB AT DISCHARGE. PT'S SPOUSE REPORTED INABILITY TO CARE FOR PT AT HOME IN WEAKENED CONDITION. CM WAITING PT AND SPOUSE TO DISCUSS HALFWAY REHAB OPTIONS AND MAKE A DECISION. Alex Cavazos, CASE MANAGEMENT DCP- Discharge Planning Updated by [email or web address]: Alex Cavazos on 09/24/18 4:[address] Patient Name: HARRIS RAYO Encounter No: [id number] : 1950 Primary Insurance: Invrep Anticipated DC Date: 09-24-2018 Planned Disposition: HALFWAY FACILITY External Planned Provider: TO BE DETERMINED DCP follow-up note: CM MET WITH PT AND SPOUSE IN ROOM TO DISCUSS DISCHARGE PLANNING AND NEEDS. CM UNABLE TO AWAKEN PT. PT'S SPOUSE REPORTS THE DOCTOR GAVE PT A SEDATIVE. CM DISCUSSED DISCHARGE PLANNING AND THERAPY NOTES TO DATE. PT'S SPOUSE REPORTS SHE IS NOT ABLE TO CARE FOR PT IN HIS WEAKENED STATE AT HOME AND PT WILL NEED REHAB. CM DISCUSSED AVAILABILITY OF INPATIENT AND HALFWAY REHAB. PT'S SPOUSE WANTS TO DISCUSS OPTIONS WITH PT WHEN HE IS AWAKE. CM LEFT PT'S SPOUSE WITH HOME HEALTH PROVIDER LISTING FOR [place], CHOICE FORM AND CM CONTACT INFORMATION. PT'S SPOUSE REPORTS INABILITY TO CARE FOR PT AT HOME IN WEAKENED CONDITION. CM WAITING PT AND SPOUSE TO DISCUSS HALFWAY REHAB OPTIONS AND MAKE A DECISION. Alex Cavazos CASE MANAGEMENT DCP- Discharge Planning Updated by [email or web address]: Radha Love on 09/21/18 1:[address] Patient Name: HARRIS RAYO Admission Status: ER Accout number: [id number] Admission Date: 09-19-2018 : 1950 Admission Diagnosis:WEAKNESS Attending: MILAGRO FORTE Current LOS: 2 Anticipated DC Date: 09-24-2018 Planned Disposition: Home with Home Health Primary Insurance: NOVASYCR Discharge Planning Comments: DC PLAN: Rehab vs Home with and Home Health. DC NEEDS: PT/OT Eval to see if he will participate. CM met with patient to complete initial dc planning assessment. Patient not answering questions so CM called his Peg. CM educated patient and Peg on the CM role and verbal consent given by patient's to complete assessment. CM verified patient's address, phone number, and emergency contact phone numbers. Patient lives at home with her. She reports for the past year and a half the patient has basically sat in his recliner 95 % of the time with 75% sleeping. She reports he gets up to go to the bathroom or to the refrigerator. She reports he basically crawls around when he does get out of the chair. Cm asked If he was able to get dressed or take his clothes off and she said he just doesn't wear clothes. He sits around naked (which is what he has done for a long time). At discharge she feel he would benefit from rehab but she is not sure he will agree to go. Patient shook his head yes when I asked him, however CM is not sure he will participate in therapy as he has been refusing most thing this far during his stay. Order received for OT/PT finn to see if he will participate. If he will not participate in therapy neither his insurance or a rehab will accept him. He is a managed medicare and will require authorization. Cm told the if he did not participate than he would have to return home and we could try home Health. She does not have a preference on HH and she cant remember who they have used in the past. Patient's reports she will transport him home at time of discharge if he is able to get in the car. If not he may require ambulance transport home. CM will continue to follow and will assist as needed with dc plans/needs. Cost Engineer: Radha Love RN, [facility] DCPIA - Discharge Planning Initial Assessment Updated by [email or web address]: Radha Love on 09/21/18 2:45 pm * How many steps to enter\exit or inside your home? * PCP Dr. Scott * [facility] [address] * Preadmission Environment Home with Family * ADLs Partial Dependent * Partial ADLs (Assistance needed) Bathing Dressing Medication Management Toileting * Equipment Bedside Commode Cane * List name and contact numbers for known caregivers / representatives who currently or will assist patient after discharge: Peg Rayo - - [phone] * Verbal permission to speak to the caregivers and representatives has been obtained from the patient. Yes * Community resources currently utilized None * Additional services required to return to the preadmission environment? Yes * Can the patient safely return to the preadmission environment? Yes * Has this patient been hospitalized within the prior 30 days at any hospital? No Coverage Notice Reviewer: [id number] Cavazos Notice Issued Date-Time: 09/27/2018 9:05 Notice Type: IM Discharge Notice Notice Delivered To: Family Member Relationship to Patient: Spouse Cognos Analyst Name: LUPE RAYO Delivery Method: HAND - Hand Delivered Shamika Days: Prior Verbal Notification: Recipient Understood Notice: Yes Recipient Signature: Yes Med Rec Note Co-signed by Attending: Coverage Notice Comment: Reviewer: [id number] Cavazos Notice Issued Date-Time: 09/27/2018 9:05 Notice Type: Patient Choice Letter Notice Delivered To: Family Member Relationship to Patient: Spouse Cognos Analyst Name: LUPE RAYO Delivery Method: HAND - Hand Delivered Shamika Days: Prior Verbal Notification: Recipient Understood Notice: Yes Recipient Signature: Yes Med Rec Note Co-signed by Attending: Coverage Notice Comment: [facility] OR SECOND CHOICE [facility] FOR REHAB Last DP export: 09/27/18 3:47 p Patient Name: HARRIS RAYO Page [id number] at 1657 All edits/amendments must be made on the electronic document DICTATION DATE: 09/27/181656 FLOOR COVERINGS SALESPERSON: LYNDSAY 09/27/181656 RPT#: [id number] DC DATE: STATUS: ADM IN [facility] [address] [place] [address] END OF REPORT
[2018-09-27 17:29] VITALS: BP 171/85
[2018-09-27 20:00] VITALS: BP 157/82
--- NOTE | 2018-09-27 23:08 | NUR ---
PT SITTING ON CHAIR AT THIS TIME. STAT-LOCK OFF. NO IV AT THIS TIME. AND PT REFUSED ONE AT THIS TIME. DENIES ANY FURTHER NEEDS. WILL CTM. CHAIR AND BED ALARM ON.
[2018-09-28] VITALS: BP 187/94
--- NOTE | 2018-09-28 00:50 | NUR ---
PT HAS BEEN ON THE CHAIR ALL NIGHT. OFFER TO TRANSFER PT BACK IN BED, BUT PT REFUSED. PT ALSO FOUND NAKED IN HIS ROOM. HE REFUSED HIS HOSPITAL GOWN. WILL CTM.
[2018-09-28 04:00] VITALS: BP 202/101
--- NOTE | 2018-09-28 04:06 | NUR ---
RESTARTED A NEW IV IN PT'S R.HAND 22G X1 STICK. PT TOLERATE WELL. PT BP 202/99. PRN IV HYRDALAZINE GIVEN AT THIS TIME. WILL REASSESS. PT SITTING IN CHAIR @ BEDSIDE. NO S/S OF DISTRESS.
--- NOTE | 2018-09-28 04:49 | NUR ---
REASSESS PT'S BP MANUALLY, NOW 178/98. WILL CTM PT. PT SHOW NO S/S OF DISTRESS AT THIS TIME.
[2018-09-28 05:36] LABS: BASOPHILS 0.2 % (0-2); EOSINOPHILS 1.8 % (0-7); HEMATOCRIT 47.2 % (42.0-54.0); HEMOGLOBIN 15.6 g/dL (13.5-17.5); IMMATURE GRANULOCYTES 0.4 % (0-5); LYMPHOCYTES 5.8 % (15-50); MCH 24.8 pg (26.0-34.0); MCHC 33.1 g/dL (31.0-37.0); MONOCYTES 19.9 % (2-11); NEUTROPHILS 71.9 % (40-80); PLATELET COUNT 170 10x3/uL (130-400); RBC 6.29 10x6/uL (4.20-6.10); RDW 22.7 % (11.5-14.5); WBC 9.8 10x3/uL (4.8-10.8)
[2018-09-28 06:00] LABS: CALC OSMOLALITY 265 mosm/kg (275-300); CALCIUM 8.6 mg/dL (8.5-10.1); CARBON DIOXIDE 26.4 mmol/L (21.0-32.0); CHLORIDE - SERUM 99 mmol/L (98-107); CREATININE - SERUM 0.9 mg/dL (0.6-1.3); GLUCOSE 79 mg/dL (74-106); POTASSIUM - SERUM 4.6 mmol/L (3.5-5.1); SODIUM 132 mmol/L (136-145); UREA NITROGEN 19 mg/dL (7-18); eGFR NON AFRICAN AMERICAN 89 mL/min (90-120)
--- NOTE | 2018-09-28 06:45 | NUR ---
BP 177/91. PO PRN CLONIDINE GIVEN @ THIS. SPOUSE AT BEDSIDE.
--- NOTE | 2018-09-28 07:30 | NUR ---
A/A/OX1 TO PERSON ONLY. ONLY COMMUNICATES IN WHISPER. DENIES ANY PAIN AND NO REQUESTS VOICED. WILKINS PATENT WITH DARK FLORES URINE TO BEDSIDE DRAINAGE. ASSESSMENT COMPLETED. BED ALARM ON AND OPERATING PROPERLY. NO ATTEMPTS TO GET OUT OF THE BED. WILL CONTINUE POC.
[2018-09-28 09:58] VITALS: BP 141/72
--- NOTE | 2018-09-28 10:45 | NUR ---
REFUSES TO TAKE HIS MEDS. WHEN ASKED WHY STATED "I DON'T NEED THEM". DENIES ANY PAIN. CALL PUT IN FOR TUNG TO REPORT NOT TAKING MEDS AND NO IV ACCESS AT PRESENT TIME.
[2018-09-28 11:10] LABS: FUNGUS STAIN Final report (())
--- NOTE | 2018-09-28 12:52 | NUR ---
Nutrition Follow-up: Per RN, pt remains confused; noted pressure ulcers. Diet: Regular Wt: 201# Last BM: 09/27 per chart Labs reviewed Meds reviewed May consider low Na diet 2/2 HTN, CHF. Offer nutrition supplements. [place] food preferences. RD following.
[2018-09-28 13:46] VITALS: BP 140/73
--- NOTE | 2018-09-28 16:38 | NUR ---
ORDER RECEIVED FROM JACOB BAXTER APRN TO LEAVE IV OUT AND CHANGE PROTONIX TO PO. PT IS STILL REFUSING MEDICATIONS.
--- NOTE | 2018-09-28 16:42 | NUR ---
I have reviewed this patient and I concur with the Shift Assessment completed by the Licensed Practical Nurse today this shift.
[2018-09-28 17:59] VITALS: BP 141/70
--- NOTE | 2018-09-28 19:20 | NUR ---
REPORT RECEIVED FROM DAY SHIFT, PT CARE ASSUMED. PT LYING IN BED WITH EYES CLOSED, RR EVEN AND NONLABORED, NO S/S DISTRESS, EASILY AROUSES TO VOICE. INTRODUCED SELF AND WROTE NAME ON BOARD. PT DENIES PAIN AND OTHER NEEDS AT THIS TIME. BED IN LOWEST POSITION, SR X2, CALL LIGHT WITHIN REACH. WILL CONTINUE TO MONITOR.
[2018-09-28 20:00] VITALS: BP 127/61
--- NOTE | 2018-09-28 20:56 | NUR ---
EVENING ROUNDS COMPLETED.VSS, AERT BUT CONFUSED. PT FOUNDS SITTING UP IN BED. NO PIV ACCESS AT THIS TIME. PT REFUSED PIV INSERTION. PT ALSO REFUSED PM METOPROLOL. SHERBET ICECREAM PROVIDED PER PT'S REQUEST. CLAUDETTE INTACT. WILL CTM. CL WITHIN REACH, BED IN LOW/ALARM ON. SR UP X2.
[2018-09-29] VITALS: BP 161/66
[2018-09-29 03:49] LABS: CALC OSMOLALITY 281 mosm/kg (275-300); CALCIUM 8.8 mg/dL (8.5-10.1); CHLORIDE - SERUM 103 mmol/L (98-107); GLUCOSE 95 mg/dL (74-106); SODIUM 140 mmol/L (136-145); UREA NITROGEN 20 mg/dL (7-18); eGFR NON AFRICAN AMERICAN 79 mL/min (90-120)
[2018-09-29 03:58] LABS: HEMATOCRIT 42.1 % (42.0-54.0); HEMOGLOBIN 13.9 g/dL (13.5-17.5); MCH 24.6 pg (26.0-34.0); MCV 74.4 fL (80.0-100.0); PLATELET COUNT 154 10x3/uL (130-400); RBC 5.66 10x6/uL (4.20-6.10); RDW 22.2 % (11.5-14.5)
[2018-09-29 03:59] LABS: WBC 6.6 10x3/uL (4.8-10.8)
[2018-09-29 04:00] VITALS: BP 159/94
[2018-09-29 04:01] LABS: CARBON DIOXIDE 33.4 mmol/L (21.0-32.0); POTASSIUM - SERUM 3.7 mmol/L (3.5-5.1)
[2018-09-29 04:51] LABS: EOSINOPHILS 3 % (0-7); LYMPHOCYTES 14 % (15-50); MONOCYTES 21 % (2-11); NEUTROPHILS 62 % (40-80); PLATELET ESTIMATE NORMAL; PLATELET MORPHOLOGY GIANT PLTS PRESENT
--- NOTE | 2018-09-29 06:05 | NUR ---
PT REFUSED 0600 MEDS. NO S/S DISTRESS. WILL CTM. BED ALARM ON.
--- NOTE | 2018-09-29 07:00 | NUR ---
RECEIVED REPORT. ASSUMED CARE OF PATIENT. RESTING IN BED WITH HOB ELEVATED. RESP EVEN AND UNLABORED. NO DISTRESS. CALL LIGHT WITHIN REACH.
--- NOTE | 2018-09-29 08:24 | NUR ---
AND TUNG HERE FOR ROUNDS. MESSAGE RELAYED TO THEM TO PLEASE CALL AND PHONE NUMBER PROVIDED ON STICKY PAD.
--- NOTE | 2018-09-29 09:30 | NUR ---
PATIENT BEING NONCOMPLIANT AND TRYING TO CLIMB OUT OF BED TO GO TO THE RESTROOM. THIS LEAD NURSE ATTEMPTED EXPLAINING TO PATIENT THAT HE IS NOT STRONG ENOUGH TO WALK, PATIENT DOES NOT BELIEVE HE CAN NOT WALK AND HAS NO RECOLLECTION OF ATTEMPTING TO TRANSFER PATIENT TO BED SIDE COMMONDE LAST MONDAY. PATIENT REFUSED BEDPAN AND VERY UNCOOPERATIVE. REQUESTED ASSISTANCE FROM ANOTHER STAFF NURSE. THAT NURSE WAS ABLE TO GET PATIENT CLEANED UP PATEINT WAS INCONTINENT ON HIS BED. NO DISTRESS.
[2018-09-29 09:58] VITALS: BP 133/90
--- NOTE | 2018-09-29 13:00 | NUR ---
CALLED TO PATIENT ROOM BY REEL FED PRINTER PASSING BY ROOM. PATIENT SITTING TO SIDE OF BED WITH FECES SMEARED ALL OVER HIS ARMS, ABDOMEN, AND SIDE RAILS. THIS TIE MAKER AND KAROLINE COULTER PROVIDED INCONTINENT CARE TO PATIENT, LINENS CHANGED. CALL LIGHT WITHIN REACH. NO DISTRESS.
--- NOTE | 2018-09-29 15:01 | NUR ---
PATIENT SITTING UP IN BED AT THIS TIME WITH ATTENTION TOWARD TELEVISION. CALL LIGHT WITHIN REACH. NO DISTRESS.
[2018-09-29 17:15] VITALS: BP 134/73
[2018-09-29 20:00] VITALS: BP 137/84
--- NOTE | 2018-09-29 20:00 | NUR ---
EVENING ROUNDS COMPLETED. REPORT RECEIVED. PT SITTING UP IN BED WITH EYES OPEN, RR EVEN AND UNLABORED. BED IN LOW POSITION. BED ALARM AND DAVID ALARM TURNED ON. PT REFUSES TO WEAR TELEMETRY BY CONTINUING TO KEEP REMOVING TELEMETRY LEADS AFTER EDUCATION PROVIDED. INTRODUCED SELF TO PT. PT NODS HEAD BUT DOES NOT MAKE VERBAL RESPONSE. CALL LIGHT IN REACH. WILL CTM.
[2018-09-30] VITALS: BP 156/98
--- NOTE | 2018-09-30 02:02 | NUR ---
I have reviewed this patient and I concur with the Shift Assessment completed by the Licensed Practical Nurse today this shift.
--- NOTE | 2018-09-30 02:27 | NUR ---
PT CONTINUES TO MAKE ATTEMPTS TO MANUALLY REMOVE HIS WILKINS CATHETER AND SPREAD HIS FECES THROUGHOUT THE ROOM AFTER EPISODE OF BOWEL INCONTINENCE. DAVID ALARM HAS BEEN PLACED UNDER PT AND BED ALARM HAS ALSO BEEN TURNED ON.
--- NOTE | 2018-09-30 04:00 | NUR ---
I have reviewed this patient and I concur with the Shift Assessment completed by the Licensed Practical Nurse today this shift.
--- NOTE | 2018-09-30 05:09 | NUR ---
MORNING MEDICATIONS REFUSED. BED ALARM TURNED ON. WILL CTM.
--- NOTE | 2018-09-30 07:00 | NUR ---
RECEIVED REPORT. ASSUMED CARE OF PATIENT. CALL LIGHT WITHIN REACH. PATIENT RESTING WITH EYES CLOSED. RESP EVEN AND UNLABORED. PATIENT COVERED WITH A SHEET TO PREVENT EXPOSURE. PER REPORT RECEIVED, PATIENT RECEIVED X 2 DOSES OF IM ATIVAN. NO DISTRESS.
--- NOTE | 2018-09-30 07:53 | NUR ---
NIGHT NURSE TOOK TELELMETRY OFF OF PATIENT DUE TO PATIENT PULLING TELEMETRY OFF BUT ORDER FOR TELEMETRY IS STILL ACTIVE. MERCHANDISE MARKER HAS NO MONITORS AT THIS TIME TO PLACE BACK ON PATIENT. PATIENT RESTING WITH EYES CLOSED, EASILY AROUSED. RESP EVEN AND UNLABORED. WILL REAPPLY TELELMETRY ONCE A MONITOR IS AVAILABLE.
[2018-09-30 09:27] VITALS: BP 181/104
[2018-09-30 09:56] VITALS: BP 163/95
--- NOTE | 2018-09-30 11:00 | NUR ---
PATIENT RESTING IN BED WITH EYES CLOSED. EASILY AROUSED. RESP EVEN AND UNLABORED. NO DISTRESS.
--- NOTE | 2018-09-30 11:20 | NUR ---
PATIENTS CALLED TO CHECK ON HIM AND GLAD TO HEAR THAT HE RESTED LAST NIGHT AFTER RECEIVING THE ATIVAN. PATIENTS SAID TO CALL IF WE WERE TO NEED ANYTHING FROM HER OR IF ANYTHING CHANGES. MRS. RAYO IS GLAD TO KNOW THAT PATIENT TOOK HIS MEDICATION.
[2018-09-30 12:20] VITALS: BP 132/85
--- NOTE | 2018-09-30 14:00 | NUR ---
RESTING IN BED WITH EYES CLOSED. RESP EVEN AND UNLABORED. NO DISTRESS.
--- NOTE | 2018-09-30 17:09 | NUR ---
PATIENT AWAKE AND SITTING UP CONSUMING PM MEAL. NO DISTRESS. CALL LIGHT WITHIN REACH. ASSISTED WITH MEAL SET UP FOR PATIENT. SODA PROVIDED. PATIENT WITH ATTENTION TOWARD TELEVISION AT THIS TIME.
[2018-09-30 17:33] VITALS: BP 139/92
--- NOTE | 2018-09-30 19:30 | NUR ---
EVENING ROUNDS COMPLETED. REPORT RECEIVED. PT SITTING UP IN BED WITH EYES OPEN, RR EVEN AND UNLABORED. BED IN LOW POSITION. DAVID ALARM AND BED ALARM TURNED ON. NO S/S OF DISTRESS NOTED. CALL LIGHT IN REACH. WILL CTM.
[2018-09-30 20:00] VITALS: BP 114/70
[2018-10-01] VITALS: BP 140/92
--- NOTE | 2018-10-01 02:57 | NUR ---
I have reviewed this patient and I concur with the Shift Assessment completed by the Licensed Practical Nurse today this shift.
[2018-10-01 04:00] VITALS: BP 143/86
[2018-10-01 04:57] LABS: CALC OSMOLALITY 280 mosm/kg (275-300); CALCIUM 8.7 mg/dL (8.5-10.1); CARBON DIOXIDE 32.3 mmol/L (21.0-32.0); CHLORIDE - SERUM 102 mmol/L (98-107); GLUCOSE 75 mg/dL (74-106); POTASSIUM - SERUM 3.8 mmol/L (3.5-5.1); SODIUM 140 mmol/L (136-145); UREA NITROGEN 22 mg/dL (7-18); eGFR NON AFRICAN AMERICAN 79 mL/min (90-120)
[2018-10-01 05:10] LABS: BASOPHILS 1.1 % (0-2); EOSINOPHILS 3.3 % (0-7); HEMATOCRIT 42.1 % (42.0-54.0); HEMOGLOBIN 13.7 g/dL (13.5-17.5); IMMATURE GRANULOCYTES 0.3 % (0-5); MCH 24.5 pg (26.0-34.0); MCHC 32.5 g/dL (31.0-37.0); MCV 75.2 fL (80.0-100.0); MONOCYTES 16.1 % (2-11); NEUTROPHILS 64.2 % (40-80); PLATELET COUNT 190 10x3/uL (130-400); RDW 21.9 % (11.5-14.5); WBC 6.7 10x3/uL (4.8-10.8)
[2018-10-01 08:44] VITALS: BP 148/89
--- NOTE | 2018-10-01 08:57 | MORECARE ---
CASE MANAGEMENT DISCHARGE SUMMARY PATIENT: HARRIS RAYO UNIT: [id number] ADM DATE: 09/19/18 AGE: 68 : 51 SEX: M ROOM/BED: D.2104 AUTHOR: ALVA,DOC PHYSICIAN: REFERRING PHYSICIAN: MILAGRO FORTE MD DATE OF SERVICE: 10/01/18 Discharge Plan Patient Name: HARRIS RAYO Facility: [facility]:[place] : 1950 Planned Disposition: Correction Facility Anticipated Discharge Date: 09/24/18 Discharge Date: Expected LOS: 5 Initial Reviewer: [email or web address] Initial Review Date: 09/19/2018 Generated: 10/01/18 9:56 am Comments DCP- Discharge Planning Updated by [id number]: Alex Cavazos on 10/01/18 7:[address] Patient Name: HARRIS RAYO Encounter No: [id number] : 1950 Primary Insurance: NOVASYSMCR Anticipated DC Date: 09-24-2018 Planned Disposition: Correction Facility External Planned Provider: [facility], MEDICARE REHAB BED DCP follow-up note: CM FAXED REFERRAL [facility] AT [phone]. CM WAITING ADMISSION DETERMINATION AND INSURANCE DETERMINATION FOR REHAB AT [facility]. CAMILLE Peña DCP- Discharge Planning Updated by [email or web address]: Alex Cavazos on 09/27/18 3:[address] Patient Name: HARRIS RAYO Encounter No: [id number] : 1950 Primary Insurance: NOVASYSMCR Anticipated DC Date: 09-24-2018 Planned Disposition: Correction Facility External Planned Provider: [facility], MEDICARE REHAB BED DCP follow-up note: CM SPOKE TO PT AND SPOUSE IN ROOM REGARDING REHAB NEEDS. PT AND SPOUSE AGREE THAT PT NEEDS REHAB, PT'S SPOUSE CHOSE [facility] WITH SECOND CHOICE OF [facility]. CHOICE SIGNED. PT IN AGREEMENT. IMPORTANT MESSAGE FROM MEDICARE PROVIDED AND EXPLAINED. CM CALLED [facility], , SPOKE TO JACOB WHO VERIFIED BEING IN PT'S INSURANCE NETWORK AND WILL REVIEW FOR ADMISSION TO REHAB. CM FAXED REFERRAL TO [facility] AT [phone]. CM WAITING ADMISSION DETERMINATION AND INSURANCE DETERMINATION FOR REHAB AT [facility]. Alex Cavazos CASE MANAGEMENT DCP- Discharge Planning Updated by [id number]: Alex Cavazos on 09/25/18 9:[address] Patient Name: HARRIS RAYO Encounter No: [id number] : 1950 Primary Insurance: NOVASYAvega SystemsCR Anticipated DC Date: 09-24-2018 Planned Disposition: group home facility External Planned Provider: to be determined DCP follow-up note: CM RECEIVED CALL FROM AURORAAL FELIXSHAUNA OF [employer], . AURORA IS PT'S INSURANCE LICENSED RETAIL SUPERVISOR AND WILL BE FOLLOWING UP WITH PT POST DISCHARGE FOR CASE MANAGEMENT IF NEEDED. CM INFORMED AURORA OF CM'S CONVERSTATION WITH PT'S SPOUSE REGARDING POSSIBLE NEED OF PRISON REHAB AT DISCHARGE. PT'S SPOUSE REPORTED INABILITY TO CARE FOR PT AT HOME IN WEAKENED CONDITION. CM WAITING PT AND SPOUSE TO DISCUSS PRISON REHAB OPTIONS AND MAKE A DECISION. Alex Cavazos CASE MANAGEMENT DCP- Discharge Planning Updated by [id number]: Alex Cavazos on 09/24/18 4:[address] Patient Name: HARRIS RAYO Encounter No: [id number] : 1950 Primary Insurance: NOVASYSMCR Anticipated DC Date: 09-24-2018 Planned Disposition: PRISON FACILITY External Planned Provider: TO BE DETERMINED DCP follow-up note: CM MET WITH PT AND SPOUSE IN ROOM TO DISCUSS DISCHARGE PLANNING AND NEEDS. CM UNABLE TO AWAKEN PT. PT'S SPOUSE REPORTS THE DOCTOR GAVE PT A SEDATIVE. CM DISCUSSED DISCHARGE PLANNING AND THERAPY NOTES TO DATE. PT'S SPOUSE REPORTS SHE IS NOT ABLE TO CARE FOR PT IN HIS WEAKENED STATE AT HOME AND PT WILL NEED REHAB. CM DISCUSSED AVAILABILITY OF INPATIENT AND PRISON REHAB. PT'S SPOUSE WANTS TO DISCUSS OPTIONS WITH PT WHEN HE IS AWAKE. CM LEFT PT'S SPOUSE WITH HOME HEALTH PROVIDER LISTING FOR [place], CHOICE FORM AND CM CONTACT INFORMATION. PT'S SPOUSE REPORTS INABILITY TO CARE FOR PT AT HOME IN WEAKENED CONDITION. CM WAITING PT AND SPOUSE TO DISCUSS PRISON REHAB OPTIONS AND MAKE A DECISION. Alex Cavazos CASE MANAGEMENT DCP- Discharge Planning Updated by [email or web address]: Radha Love on 09/21/18 1:[address] Patient Name: HARRIS RAYO Admission Status: ER Accout number: [id number] Admission Date: 09-19-2018 : 1950 Admission Diagnosis:WEAKNESS Attending: MILAGRO FORTE Current LOS: 2 Anticipated DC Date: 09-24-2018 Planned Disposition: Home with Home Health Primary Insurance: NOVASYSMCR Discharge Planning Comments: DC PLAN: Rehab vs Home with and Home Health. DC NEEDS: PT/OT Eval to see if he will participate. CM met with patient to complete initial dc planning assessment. Patient not answering questions so CM called his Peg. CM educated patient and Peg on the CM role and verbal consent given by patient's to complete assessment. CM verified patient's address, phone number, and emergency contact phone numbers. Patient lives at home with her. She reports for the past year and a half the patient has basically sat in his recliner 95 % of the time with 75% sleeping. She reports he gets up to go to the bathroom or to the refrigerator. She reports he basically crawls around when he does get out of the chair. Cm asked If he was able to get dressed or take his clothes off and she said he just doesn't wear clothes. He sits around naked (which is what he has done for a long time). At discharge she feel he would benefit from rehab but she is not sure he will agree to go. Patient shook his head yes when I asked him, however CM is not sure he will participate in therapy as he has been refusing most thing this far during his stay. Order received for OT/PT eval to see if he will participate. If he will not participate in therapy neither his insurance or a rehab will accept him. He is a managed medicare and will require authorization. Cm told the if he did not participate than he would have to return home and we could try home Health. She does not have a preference on HH and she cant remember who they have used in the past. Patient's reports she will transport him home at time of discharge if he is able to get in the car. If not he may require ambulance transport home. CM will continue to follow and will assist as needed with dc plans/needs. Supervisor Ticket Sales: Radha Love RN, [facility] DCPIA - Discharge Planning Initial Assessment Updated by [id number]: Radha Love on 09/21/18 2:45 pm * How many steps to enter\exit or inside your home? * PCP Dr. Scott * [facility] [address] * Preadmission Environment Home with Family * ADLs Partial Dependent * Partial ADLs (Assistance needed) Bathing Dressing Medication Management Toileting * Equipment Bedside Commode Cane * List name and contact numbers for known caregivers / representatives who currently or will assist patient after discharge: Peg Rayo - - [phone] * Verbal permission to speak to the caregivers and representatives has been obtained from the patient. Yes * Community resources currently utilized None * Additional services required to return to the preadmission environment? Yes * Can the patient safely return to the preadmission environment? Yes * Has this patient been hospitalized within the prior 30 days at any hospital? No Coverage Notice Reviewer: [email or web address] Cavazos Notice Issued Date-Time: 09/27/2018 9:05 Notice Type: IM Discharge Notice Notice Delivered To: Family Member Relationship to Patient: Spouse Inventory Controller Name: LUPE RAYO Delivery Method: HAND - Hand Delivered Shamika Days: Prior Verbal Notification: Recipient Understood Notice: Yes Recipient Signature: Yes Med Rec Note Co-signed by Attending: Coverage Notice Comment: Reviewer: [id number] Cavazos Notice Issued Date-Time: 09/27/2018 9:05 Notice Type: Patient Choice Letter Notice Delivered To: Family Member Relationship to Patient: Spouse Inventory Controller Name: LUPE RAYO Delivery Method: HAND - Hand Delivered Shamika Days: Prior Verbal Notification: Recipient Understood Notice: Yes Recipient Signature: Yes Med Rec Note Co-signed by Attending: Coverage Notice Comment: [facility] OR SECOND CHO[facility] FOR REHAB Last DP export: 09/27/18 3:57 p Patient Name: HARRIS RAYO Page [id number] at 0857 All edits/amendments must be made on the electronic document DICTATION DATE: 10/01/18855 QUILL BUNCHER AND SORTER: [email or web address] 10/01/1856 RPT#: [id number] DC DATE: STATUS: ADM IN [facility] [address] [place] [address] END OF REPORT
[2018-10-01 13:50] VITALS: BP 135/72
--- NOTE | 2018-10-01 19:00 | NUR ---
PATIENT LAYING IN BED. PATIENT HAS NO COMPLAINTS AT THIS TIME. NO DISTRESS NOTED.
[2018-10-01 20:00] VITALS: BP 140/86
[2018-10-02 00:10] VITALS: BP 133/99
[2018-10-02 04:00] VITALS: BP 160/90
[2018-10-02 05:33] LABS: BASOPHILS 0.4 % (0-2); EOSINOPHILS 2.8 % (0-7); HEMATOCRIT 43.7 % (42.0-54.0); HEMOGLOBIN 14.2 g/dL (13.5-17.5); IMMATURE GRANULOCYTES 0.3 % (0-5); MCH 24.6 pg (26.0-34.0); MCHC 32.5 g/dL (31.0-37.0); MCV 75.7 fL (80.0-100.0); MONOCYTES 17.3 % (2-11); NEUTROPHILS 69.2 % (40-80); PLATELET COUNT 211 10x3/uL (130-400); RBC 5.77 10x6/uL (4.20-6.10); RDW 21.9 % (11.5-14.5); WBC 7.2 10x3/uL (4.8-10.8)
[2018-10-02 05:37] LABS: CALC OSMOLALITY 283 mosm/kg (275-300); CALCIUM 9.2 mg/dL (8.5-10.1); CARBON DIOXIDE 31.2 mmol/L (21.0-32.0); CHLORIDE - SERUM 103 mmol/L (98-107); GLUCOSE 85 mg/dL (74-106); SODIUM 141 mmol/L (136-145); UREA NITROGEN 24 mg/dL (7-18); eGFR NON AFRICAN AMERICAN 79 mL/min (90-120)
[2018-10-02 05:44] LABS: POTASSIUM - SERUM 4.5 mmol/L (3.5-5.1)
--- NOTE | 2018-10-02 07:41 | NUR ---
AWAKE AND ALERT. AGGITATED. ATIVAN GIVEN IM R VG. BED ALARM IS ON. CL IN REACH. SR UP X2.
--- NOTE | 2018-10-02 08:59 | NUR ---
ASSISTED TO CHAIR X3 PT. ALARM ON. CL IN REACH.
[2018-10-02 09:21] VITALS: BP 176/103
--- NOTE | 2018-10-02 12:04 | EC ---
PATIENT:HARRIS RAYO DATE OF SERVICE: 09/19/18 SEX: M MEDICAL RECORD: [id number] DATE OF : 52 LOCATION:D.M2 D.210 AGE OF PATIENT: 68 ADMISSION DATE: 09/19/18 REFERRING PHYSICIAN: INTERPRETING PHYSICIAN: BUBBA FLYNN MD ECHOCARDIOGRAM REPORT ECHO CHARGES 4 ECHO COMPLETE Date: 09/20/18 CLINICAL DIAGNOSIS: CHF ECHOCARDIOGRAPHIC MEASUREMENTS (adult normal given) AC root (d.<3.7cm) 3.6 cm LV Septum d (<1.2 cm> 2.5 cm Valve Excursion 2.4 cm LV Septum (systole) 3.0 cm Left Atria (s.<4.0cm> 5.9 cm LVPW d(<1.2cm) 1.6 cm RV (d.<2.3cm) 5.2 cm LVPW (sytole) 1.7 cm LV diastole(<5.6CM) 5.6 cm MV E-F(>70mm/sec) cm LV systole 4.8 cm LVOT Diameter 2.3 cm MV exc.(>10mm) cm Est.ejection fraction (50-75%) % DOPPLER: LVIT cm/sec A 62 cm/sec E 67 cm/sec LA cm/sec RVSP 51.8 mmHg LVOT 94 cm/sec AOP1/2T m/s Asc. Ao 144 cm/sec RVOT 47 cm/sec RA cm/sec PA 74 cm/sec AV Gradient Peak 8.3 mmHg AV Mean 5.8 mmHg AV Area 2.5 cm MV Gradient Peak 3.3 mmHg MV Mean 1.9 mmHg MV Area cm COMMENTS: Wedding Planner: Ayse MORENO Steward/Stewardess Wine: Elijah Azevedo TAPE# PACS Pericardial Effusion Y DATE OF SERVICE: 09/21/2018 ECHOCARDIOGRAM DATE OF SERVICE: 09/21/2018 FINDINGS: 1. Left ventricular chamber size is within normal limits. Left ventricular systolic function is mild to moderately reduced at 35% to 40%. 2. Left atrium is enlarged at 5.9 cm. Right atrium and right ventricular ECHOCARDIOGRAM REPORT [id number] HARRIS RAYO chamber sizes are as well severely dilated. 3. Valvular structures have normal structure and motion. 4. Doppler interrogation reveals mild aortic insufficiency, mild mitral regurgitation, moderate tricuspid regurgitation, no other valvular insufficiency or stenosis. Pulmonary systolic pressure is elevated estimated at 52 mmHg. 5. Small pericardial effusion is present. This is not hemodynamically significant. TRANSINT:[id number] Voice Confirmation ID: [id number] DOCUMENT ID: [id number] BUBBA FLYNN MD at 1204 CC: [id number] DICTATION DATE: 09/21/18 1449 HONING MACHINE OPERATOR PRODUCTION: 09/21/18 1544 ADM IN [facility] [address] [place] [address]
--- NOTE | 2018-10-02 12:17 | NUR ---
OT NOTE: PT ALERT BUT LIMITED VERBALIZATION DURING TMT TODAY. ANSWERED OCCASSIONAL QUESTIONS. BED MOB WITH MIN ASSIST FOR ROLLING AND MOD ASSIST FOR SUPINE TO SIT. SITTING BALANCE ON EOB WAS FAIR. ABLE TO WASH FACE AND HANDS WITH CLOTH WITH SET UP; ABLE TO COMB HAIR WITH MIN ASSIST; FEEDING WITH SET UP. TRANSFER FROM BED TO CHAIR WITH MAX ASSIST X 2. SIGNIFICANT WEAKNESS IN LES. AROM EXS WITH UES THROUGH DEMONSTRATIONAL CUES. YARON BALBUENA, OTR/L
[2018-10-02 13:54] VITALS: BP 115/63
--- NOTE | 2018-10-02 13:56 | NUR ---
HAS BEEN SITTING UP IN CHAIR. THERAPY PUTTING HIM BACK TO BED. NO CHANGE IN ASSESSMENT.
--- NOTE | 2018-10-02 15:22 | NUR ---
OT NOTE:PT COMPLETED BED MOB WITH MOD A FOR SUPINE TO SIT. PT COMPLETED EOB SITTING WITH CGA. PT COMPLETED BUE AROM AXS AT EOB. THANK YOU, CARO HERNANDEZ
--- NOTE | 2018-10-02 17:04 | MORECARE ---
CASE MANAGEMENT DISCHARGE SUMMARY PATIENT: HARRIS RAYO UNIT: [id number] ADM DATE: 09/19/18 AGE: 68 : 51 SEX: M ROOM/BED: D.2104 AUTHOR: ALVA,DOC PHYSICIAN: REFERRING PHYSICIAN: MILAGRO FORTE MD DATE OF SERVICE: 10/02/18 Discharge Plan Patient Name: HARRIS RAYO Facility: [facility]:[place] : 1950 Planned Disposition: Nursing Home Facility Anticipated Discharge Date: 09/24/18 Discharge Date: Expected LOS: 5 Initial Reviewer: [id number] Initial Review Date: 09/19/2018 Generated: 10/02/18 6:03 pm Comments DCP- Discharge Planning Updated by [id number]: Alex Cavazos on 10/02/18 4:[address] Patient Name: HARRIS RAYO Encounter No: [id number] : 1950 Primary Insurance: [employer]MCR Anticipated DC Date: 09-24-2018 Planned Disposition: Nursing Home Facility External Planned Provider: [facility], MEDICARE REHAB BED DCP follow-up note: [facility] NURSE HERE TO EVALUATE PT FOR REHAB ADMISSION. CM CONTINUES TO WAIT FOR ADMISSION DETERMINTION AND INSURANCE AUTHORIZATION FOR REHAB SERVICES AT [facility]. CAMILLE Peña DCP- Discharge Planning Updated by [id number]: Alex Cavazos on 10/01/18 7:[address] Patient Name: HARRIS RAYO Encounter No: [id number] : 1950 Primary Insurance: NOVASYSMCR Anticipated DC Date: 09-24-2018 Planned Disposition: Nursing Home [facility] External Planned Provider: [facility], MEDICARE REHAB BED DCP follow-up note: CM FA[facility]ED RE[facility]ERRAL [facility] AT [phone]. CM WAITING ADMISSION DETERMINATION AND INSURANCE DETERMINATION FOR REHAB AT [facility]. CAMILLE Peña DCP- Discharge Planning Updated by [id number]: Alex Cavazos on 09/27/18 3:[address] Patient Name: HARRIS RAYO Encounter No: [id number] : 1950 Primary Insurance: N[employer]ASYSMCR Anticipated DC Date: 09-24-2018 Planned Disposition: Nursing Home Facility External Planned Provider: [facility], MEDICARE REHAB BED DCP follow-up note: CM SPOKE TO PT AND SPOUSE IN ROOM REGARDING REHAB NEEDS. PT AND SPOUSE AGREE THAT PT NEEDS REHAB, PT'S SPOUSE CHOSE [facility] WITH SECOND CHOICE OF [facility]. CHOICE SIGNED. PT IN AGREEMENT. IMPORTANT MESSAGE FROM MEDICARE PROVIDED AND EXPLAINED. CM CALLED [facility], , SPOKE TO JACOB WHO VERIFIED BEING IN PT'S INSURANCE NETWORK AND WILL REVIEW FOR ADMISSION TO REHAB. CM FAXED REFERRAL TO [facility] AT [phone]. CM WAITING ADMISSION DETERMINATION AND INSURANCE DETERMINATION FOR REHAB AT [facility]. Alex Cavazos CASE MANAGEMENT DCP- Discharge Planning Updated by [id number]: Alex Cavazos on 09/25/18 9:[address] Patient Name: HARRIS RAYO Encounter No: [id number] : 1950 Primary Insurance: [employer] Anticipated DC Date: 09-24-2018 Planned Disposition: longterm facility External Planned Provider: to be determined DCP follow-up note: CM RECEIVED CALL FROM AURORA PHELAN OF [employer], . AURORA IS PT'S INSURANCE DIE CAST OPERATOR AND WILL BE FOLLOWING UP WITH PT POST DISCHARGE FOR CASE MANAGEMENT IF NEEDED. CM INFORMED AURORA OF CM'S CONVERSTATION WITH PT'S SPOUSE REGARDING POSSIBLE NEED OF PRISON REHAB AT DISCHARGE. PT'S SPOUSE REPORTED INABILITY TO CARE FOR PT AT HOME IN WEAKENED CONDITION. CM WAITING PT AND SPOUSE TO DISCUSS PRISON REHAB OPTIONS AND MAKE A DECISION. Alex Cavazos CASE NANO DCP- Discharge Planning Updated by [id number]: Alex Cavazos on 09/24/18 4:[address] Patient Name: HARRIS RAYO Encounter No: [id number] : 1950 Primary Insurance: NOVASYSMCR Anticipated DC Date: 09-24-2018 Planned Disposition: PRISON FACILITY External Planned Provider: TO BE DETERMINED DCP follow-up note: CM MET WITH PT AND SPOUSE IN ROOM TO DISCUSS DISCHARGE PLANNING AND NEEDS. CM UNABLE TO AWAKEN PT. PT'S SPOUSE REPORTS THE DOCTOR GAVE PT A SEDATIVE. CM DISCUSSED DISCHARGE PLANNING AND THERAPY NOTES TO DATE. PT'S SPOUSE REPORTS SHE IS NOT ABLE TO CARE FOR PT IN HIS WEAKENED STATE AT HOME AND PT WILL NEED REHAB. CM DISCUSSED AVAILABILITY OF INPATIENT AND PRISON REHAB. PT'S SPOUSE WANTS TO DISCUSS OPTIONS WITH PT WHEN HE IS AWAKE. CM LEFT PT'S SPOUSE WITH HOME HEALTH PROVIDER LISTING FOR [facility], CHOICE FORM AND CM CONTACT INFORMATION. PT'S SPOUSE REPORTS INABILITY TO CARE FOR PT AT HOME IN WEAKENED CONDITION. CM WAITING PT AND SPOUSE TO DISCUSS PRISON REHAB OPTIONS AND MAKE A DECISION. Alex Cavazos, CASE MANAGEMENT DCP- Discharge Planning Updated by [id number]: Radha Love on 09/21/18 1:[address] Patient Name: HARRIS RAYO Admission Status: ER Accout number: [id number] Admission Date: 09-19-2018 : 1950 Admission Diagnosis:WEAKNESS Attending: MILAGRO FORTE Current LOS: 2 Anticipated DC Date: 09-24-2018 Planned Disposition: Home with Home Health Primary Insurance: [employer] Discharge Planning Comments: DC PLAN: Rehab vs Home with and Home Health. DC NEEDS: PT/OT Eval to see if he will participate. CM met with patient to complete initial dc planning assessment. Patient not answering questions so CM called his Peg. CM educated patient and Peg on the CM role and verbal consent given by patient's to complete assessment. CM verified patient's address, phone number, and emergency contact phone numbers. Patient lives at home with her. She reports for the past year and a half the patient has basically sat in his recliner 95 % of the time with 75% sleeping. She reports he gets up to go to the bathroom or to the refrigerator. She reports he basically crawls around when he does get out of the chair. Cm asked If he was able to get dressed or take his clothes off and she said he just doesn't wear clothes. He sits around naked (which is what he has done for a long time). At discharge she feel he would benefit from rehab but she is not sure he will agree to go. Patient shook his head yes when I asked him, however CM is not sure he will participate in therapy as he has been refusing most thing this far during his stay. Order received for OT/PT eval to see if he will participate. If he will not participate in therapy neither his insurance or a rehab will accept him. He is a managed medicare and will require authorization. Cm told the if he did not participate than he would have to return home and we could try home Health. She does not have a preference on HH and she cant remember who they have used in the past. Patient's reports she will transport him home at time of discharge if he is able to get in the car. If not he may require ambulance transport home. CM will continue to follow and will assist as needed with dc plans/needs. Access Coordinator: Radha Love RN, [facility] DCPIA - Discharge Planning Initial Assessment Updated by [id number]: Radha Love on 09/21/18 2:45 pm * How many steps to enter\exit or inside your home? * PCP Dr. Scott * [facility] [address] * Preadmission Environment Home with Family * ADLs Partial Dependent * Partial ADLs (Assistance needed) Bathing Dressing Medication Management Toileting * Equipment Bedside Commode Cane * List name and contact numbers for known caregivers / representatives who currently or will assist patient after discharge: Peg Rayo - - [phone] * Verbal permission to speak to the caregivers and representatives has been obtained from the patient. Yes * Community resources currently utilized None * Additional services required to return to the preadmission environment? Yes * Can the patient safely return to the preadmission environment? Yes * Has this patient been hospitalized within the prior 30 days at any hospital? No Coverage Notice Reviewer: [id number] Jeanmarie Cavazos Notice Issued Date-Time: 09/27/2018 9:05 Notice Type: IM Discharge Notice Notice Delivered To: Family Member Relationship to Patient: Spouse Php Engineer Name: LUPE RAYO Delivery Method: HAND - Hand Delivered Shamika Days: Prior Verbal Notification: Recipient Understood Notice: Yes Recipient Signature: Yes Med Rec Note Co-signed by Attending: Coverage Notice Comment: Reviewer: [email or web address] Jeanmarie Cavazos Notice Issued Date-Time: 09/27/2018 9:05 Notice Type: Patient Choice Letter Notice Delivered To: Family Member Relationship to Patient: Spouse Php Engineer Name: LUPE RAYO Delivery Method: HAND - Hand Delivered Shamika Days: Prior Verbal Notification: Recipient Understood Notice: Yes Recipient Signature: Yes Med Rec Note Co-signed by Attending: Coverage Notice Comment: [facility] REH[facility] Last DP export: 10/01/18 7:56 a Patient Name: HARRIS RAYO Page [id number] at 1704 All edits/amendments must be made on the electronic document DICTATION DATE: 10/02/181702 SHADOW GRAPH WEIGHT OPERATOR: [email or web address] 10/02/181702 RPT#: [id number] DC DATE: STATUS: ADM IN [facility] [address] [place] [address] END OF REPORT
--- NOTE | 2018-10-02 17:12 | NUR ---
NO CHANGE IN ASSESSMENT. RESTING WO DISTRESS. CL IN REACH.
[2018-10-02 18:36] VITALS: BP 124/75
--- NOTE | 2018-10-02 19:38 | NUR ---
EVENING ROUNDS COMPLETED. VSS, AAOX1, WITH EPISODES OF CONFUSION. NO S/S OF DISTRESS. PT HAD A BM ACCIDENT. HELP CLEAN PT AND PROVIDED FRESH LINEN. BED ALARM ON, WILKINS INTACT, WILL REPLACE STAT-LOCK. PT DENIES ANY FURTHER NEEDS AT THIS TIME. WILL CPOC. CL WITHIN REACH, BED IN LOW, SR UP X2.
[2018-10-02 20:00] VITALS: BP 129/78
[2018-10-03] VITALS: BP 139/85
[2018-10-03 04:00] VITALS: BP 172/100
--- NOTE | 2018-10-03 05:01 | NUR ---
PT'S SBP>170 PRN 0.1MG CLONIDINE GIVEN. PRN LORAZEPAM ALSO GIVEN FOR RESTLESSNESS AND AGITATION AT THIS TIME. WILL CTM. CL WITHIN REACH.
--- NOTE | 2018-10-03 07:29 | MORECARE ---
CASE MANAGEMENT DISCHARGE SUMMARY PATIENT: HARRIS RAYO UNIT: [id number] ADM DATE: 09/19/18 AGE: 68 : 51 SEX: M ROOM/BED: D.2104 AUTHOR: ALVADOC PHYSICIAN: REFERRING PHYSICIAN: MILAGRO FORTE MD DATE OF SERVICE: 10/03/18 Discharge Plan Patient Name: HARRIS RAYO Facility: [facility]:[place] : 1950 Planned Disposition: Chcf Facility Anticipated Discharge Date: 09/24/18 Discharge Date: Expected LOS: 5 Initial Reviewer: [id number] Initial Review Date: 09/19/2018 Generated: 10/03/18 8:29 am Comments DCP- Discharge Planning Updated by [email or web address]: Alex Cavazos on 10/03/18 6:[address] Patient Name: HARRIS RAYO Encounter No: [id number] : 1950 Primary Insurance: [employer]CR Anticipated DC Date: 09-24-2018 Planned Disposition: Chcf Facility External Planned Provider: [facility], MEDICARE REHAB BED DCP follow-up note: CM FAXED HOSPITAL UPDATE TO [facility] AT [phone]. CM CONTINUES TO WAIT FOR ADMISSION DETERMINTION AND INSURANCE AUTHORIZATION FOR REHAB SERVICES AT [facility]. CAMILLE Peña DCP- Discharge Planning Updated by [id number]: Alex Cavazos on 10/02/18 4:[address] Patient Name: HARRIS RAYO Encounter No: [id number] : 1950 Primary Insurance: [employer] Anticipated DC Date: 09-24-2018 Planned Disposition: Chcf Facility External Planned Provider: [facility], MEDICARE REHAB BED DCP follow-up note: [facility] NURSE HERE TO EVALUATE PT FOR REHAB ADMISSION. CM CONTINUES TO WAIT FOR ADMISSION DETERMINTION AND INSURANCE AUTHORIZATION FOR REHAB SERVICES AT [facility]. CAMILLE Peña DCP- Discharge Planning Updated by [id number]: Alex Cavazos on 10/01/18 7:[address] Patient Name: HARRIS RAYO Encounter No: [id number] : 1950 Primary Insurance: [employer]MCR Anticipated DC Date: 09-24-2018 Planned Disposition: Chcf Facility External Planned Provider: [facility], MEDICARE REHAB BED DCP follow-up note: CM FA[facility]ED REFERRAL [facility] AT [phone]. CM WAITING ADMISSION DETERMINATION AND INSURANCE DETERMINATION FOR REHAB AT [facility]. CAMILLE Peña MANAGEMENT DCP- Discharge Planning Updated by [id number]: Alex Cavazos on 09/27/18 3:[address] Patient Name: HARRIS RAYO Encounter No: [id number] : 1950 Primary Insurance: [employer] Anticipated DC Date: 09-24-2018 Planned Disposition: Chcf Facility External Planned Provider: [facility], MEDICARE REHAB BED DCP follow-up note: CM SPOKE TO PT AND SPOUSE IN ROOM REGARDING REHAB NEEDS. PT AND SPOUSE AGREE THAT PT NEEDS REHAB, PT'S SPOUSE CHOSE [facility] WITH SECOND CHOICE OF [place]. CHOICE SIGNED. PT IN AGREEMENT. IMPORTANT MESSAGE FROM MEDICARE PROVIDED AND EXPLAINED. CM CALLED [facility], , SPOKE TO JACOB WHO VERIFIED BEING IN PT'S INSURANCE NETWORK AND WILL REVIEW FOR ADMISSION TO REHAB. CM FAXED REFERRAL TO [facility] AT [phone]. CM WAITING ADMISSION DETERMINATION AND INSURANCE DETERMINATION FOR REHAB AT [facility]. CAMILLE Peña DCP- Discharge Planning Updated by [email or web address]: Alex Cavazos on 09/25/18 9:[address] Patient Name: HARRIS RAYO Encounter No: [id number] : 1950 Primary Insurance: [employer]MCR Anticipated DC Date: 09-24-2018 Planned Disposition: alf facility External Planned Provider: to be determined DCP follow-up note: CM RECEIVED CALL FROM AURORA PHELAN OF [employer], . AURORA IS PT'S INSURANCE PLANT OPERATIONS COORDINATOR AND WILL BE FOLLOWING UP WITH PT POST DISCHARGE FOR CASE MANAGEMENT IF NEEDED. CM INFORMED AURORA OF CM'S CONVERSTATION WITH PT'S SPOUSE REGARDING POSSIBLE NEED OF [facility] REHAB AT DISCHARGE. PT'S SPOUSE REPORTED INABILITY TO CARE FOR PT AT HOME IN WEAKENED CONDITION. CM WAITING PT AND SPOUSE TO DISCUSS [facility] REH[facility] OPTIONS AND MAKE A DECISION. CAMILLE Peña MANAGEMENT DCP- Discharge Planning Updated by [id number]: Alex Cavazos on 09/24/18 4:[address] Patient Name: HARRIS RAYO Encounter No: [id number] : 1950 Primary Insurance: [employer] Anticipated DC Date: 09-24-2018 Planned Disposition: [facility] External Planned Provider: TO BE DETERMINED DCP follow-up note: CM MET WITH PT AND SPOUSE IN ROOM TO DISCUSS DISCHARGE PLANNING AND NEEDS. CM UNABLE TO AWAKEN PT. PT'S SPOUSE REPORTS THE DOCTOR GAVE PT A SEDATIVE. CM DISCUSSED DISCHARGE PLANNING AND THERAPY NOTES TO DATE. PT'S SPOUSE REPORTS SHE IS NOT ABLE TO CARE FOR PT IN HIS WEAKENED STATE AT HOME AND PT WILL NEED REHAB. CM DISCUSSED AVAILABILITY OF INPATIENT AND [facility] REHAB. PT'S SPOUSE WANTS TO DISCUSS OPTIONS WITH PT WHEN HE IS AWAKE. CM LEFT PT'S SPOUSE WITH HOME HEALTH PROVIDER LISTING FOR [place], CHOICE FORM AND CM CONTACT INFORMATION. PT'S SPOUSE REPORTS INABILITY TO CARE FOR PT AT HOME IN WEAKENED CONDITION. CM WAITING PT AND SPOUSE TO DISCUSS [facility] RE[facility] OPTIONS AND MAKE A DECISION. CAMILLE Peña MANAGEMENT DCP- Discharge Planning Updated by [id number]: Radha Love on 09/21/18 1:[address] Patient Name: HARRIS RAYO Admission Status: ER Accout number: [id number] Admission Date: 09-19-2018 : 1950 Admission Diagnosis:WEAKNESS Attending: MILAGRO FORTE Current LOS: 2 Anticipated DC Date: 09-24-2018 Planned Disposition: Home with Home Health Primary Insurance: [employer] Discharge Planning Comments: DC PLAN: Rehab vs Home with and Home Health. DC NEEDS: PT/OT Eval to see if he will participate. CM met with patient to complete initial dc planning assessment. Patient not answering questions so CM called his Peg. CM educated patient and Peg on the CM role and verbal consent given by patient's to complete assessment. CM verified patient's address, phone number, and emergency contact phone numbers. Patient lives at home with her. She reports for the past year and a half the patient has basically sat in his recliner 95 % of the time with 75% sleeping. She reports he gets up to go to the bathroom or to the refrigerator. She reports he basically crawls around when he does get out of the chair. Cm asked If he was able to get dressed or take his clothes off and she said he just doesn't wear clothes. He sits around naked (which is what he has done for a long time). At discharge she feel he would benefit from rehab but she is not sure he will agree to go. Patient shook his head yes when I asked him, however CM is not sure he will participate in therapy as he has been refusing most thing this far during his stay. Order received for OT/PT eval to see if he will participate. If he will not participate in therapy neither his insurance or a rehab will accept him. He is a managed medicare and will require authorization. Cm told the if he did not participate than he would have to return home and we could try home Health. She does not have a preference on HH and she cant remember who they have used in the past. Patient's reports she will transport him home at time of discharge if he is able to get in the car. If not he may require ambulance transport home. CM will continue to follow and will assist as needed with dc plans/needs. Process Line Operator: Radha Love RN, [facility] DCPIA - Discharge Planning Initial Assessment Updated by [id number]: Radha Love on 09/21/18 2:45 pm * How many steps to enter\exit or inside your home? * PCP Dr. Scott * [facility] [address] * Preadmission Environment Home with Family * ADLs Partial Dependent * Partial ADLs (Assistance needed) Bathing Dressing Medication Management Toileting * Equipment Bedside Commode Cane * List name and contact numbers for known caregivers / representatives who currently or will assist patient after discharge: Peg Rayo - - [phone] * Verbal permission to speak to the caregivers and representatives has been obtained from the patient. Yes * Community resources currently utilized None * Additional services required to return to the preadmission environment? Yes * Can the patient safely return to the preadmission environment? Yes * Has this patient been hospitalized within the prior 30 days at any hospital? No Coverage Notice Reviewer: [id number] - Alex Cavazos Notice Issued Date-Time: 09/27/2018 9:05 Notice Type: IM Discharge Notice Notice Delivered To: Family Member Relationship to Patient: Spouse Frog Catcher Name: LUPE RAYO Delivery Method: HAND - Hand Delivered Shamika Days: Prior Verbal Notification: Recipient Understood Notice: Yes Recipient Signature: Yes Med Rec Note Co-signed by Attending: Coverage Notice Comment: Reviewer: [id number] Jeanmarie Cavazos Notice Issued Date-Time: 09/27/2018 9:05 Notice Type: Patient Choice Letter Notice Delivered To: Family Member Relationship to Patient: Spouse Frog Catcher Name: LPUE RAYO Delivery Method: HAND - Hand Delivered Shamika Days: Prior Verbal Notification: Recipient Understood Notice: Yes Recipient Signature: Yes Med Rec Note Co-signed by Attending: Coverage Notice Comment: [facility] FOR RE[facility] Last DP export: 10/02/18 4:04 p Patient Name: HARRIS RAYO Page [phone] at 0729 All edits/amendments must be made on the electronic document DICTATION DATE: 10/03/18728 BRILLIANDEER LOPPER: LYNDSAY 10/03/18728 RPT#: [id number] DC DATE: STATUS: ADM IN [facility] [address] [place] [address] END OF REPORT
--- NOTE | 2018-10-03 07:30 | NUR ---
PT RESTING IN BED, EYES CLOSED. RESPIRATIONS EVEN AND UNLABORED. AROUSES TO STIMULI. PT A DNR. TOTAL CARE. REFUSED IV. REFUSED TELEMETRY. LEFT BKA. WILKINS CATHETER PRESENT, URINE CONCENTRATED. UP WITH PHYSICAL THERAPY. BRUISE TO LEFT BUTTOCKS, REDNESS TO BOTH. NO C/O PAIN. NO S/S OF ACUTE DISTRESS NOTED. CALL LIGHT IN REACH. WILL CONTINUE TO MONITOR.
[2018-10-03 08:41] VITALS: BP 153/88
--- NOTE | 2018-10-03 10:35 | NUR ---
I have reviewed this patient and I concur with the Shift Assessment completed by the Licensed Practical Nurse today this shift.
[2018-10-03 12:39] VITALS: BP 148/90
--- NOTE | 2018-10-03 12:41 | NUR ---
OT NOTE: PT LETHARGIC IN THE AM. NURSING REPORTED THAT HE WAS GIVEN MEDS LAST NIGHT THAT COULD CAUSE DROWDINESS. INCREASED ALERTNESS LATER. FEEDING WITH SET UP OF TRAY AND MIN ASSIST INITIALLY, HOWEVER, AFTER GETTING PT STARTED, HE WAS ABLE TO FEED HIMSELF. BED MOB WITH MOD ASSIST. ABLE TO WASH FACE AND HANDS WITH CLOTH WITH SET UP. STATIC SITTING ON EOB WITH CGA. YARON BALBUENA, OTR/L
--- NOTE | 2018-10-03 14:08 | NUR ---
Nutrition Follow-up: Good PO intake this AM. Diet: Regular PO intake: 50% avg (10/02) Last BM: 10/02 Wt: 168# (noted down from 172# on 10/01) Labs reviewed Meds reviewed May consider low Na diet. +Ensure with meals. Teller food preferences. RD following.
--- NOTE | 2018-10-03 14:27 | NUR ---
OT NOTE: PT COMPLETED BED MOB WITH MIN A FOR SIDE ROLLING. PT COMPLETED MOD A FOR SUPINE TO SIT. PT COMPLETED GROOMING TASKS WITH MIN/MOD A. THANK YOU, CARO HERNANDEZ
--- NOTE | 2018-10-03 17:53 | MORECARE ---
CASE MANAGEMENT DISCHARGE SUMMARY PATIENT: HARRIS RAYO UNIT: [id number] ADM DATE: 09/19/18 AGE: 68 : 51 SEX: M ROOM/BED: D.2104 AUTHOR: GUSTABO CALLE PHYSICIAN: REFERRING PHYSICIAN: MILAGRO FORTE MD DATE OF SERVICE: 10/03/18 Discharge Plan Patient Name: HARRIS RAYO Facility: [facility]:[place] : 1950 Planned Disposition: Half-Way Facility Anticipated Discharge Date: 09/24/18 Discharge Date: Expected LOS: 5 Initial Reviewer: [id number] Initial Review Date: 09/19/2018 Generated: 10/03/18 6:53 pm Comments DCP- Discharge Planning Updated by [id number]: Alex Cavazos on 10/03/18 6:[address] Patient Name: HARRIS RAYO Encounter No: [id number] : 1950 Primary Insurance: NOVASYSMCR Anticipated DC Date: 09-24-2018 Planned Disposition: Half-Way Facility External Planned Provider: [facility], MEDICARE REHAB BED DCP follow-up note: CM FAXED HOSPITAL UPDATE TO [facility] AT [phone]. CM CONTINUES TO WAIT FOR ADMISSION DETERMINTION AND INSURANCE AUTHORIZATION FOR REHAB SERVICES AT [facility]. CAMILLE Peña DCP- Discharge Planning Updated by [email or web address]: Alex Cavazos on 10/02/18 4:[address] Patient Name: HARRIS RAYO Encounter No: [id number] : 1950 Primary Insurance: NOVASYSMCR Anticipated DC Date: 09-24-2018 Planned Disposition: Half-Way Facility External Planned Provider: [facility], MEDICARE REHAB BED DCP follow-up note: [facility] NURSE HERE TO EVALUATE PT FOR REHAB ADMISSION. CM CONTINUES TO WAIT FOR ADMISSION DETERMINTION AND INSURANCE AUTHORIZATION FOR REHAB SERVICES AT [facility]. CAMILLE Peña DCP- Discharge Planning Updated by [email or web address]: Alex Cavazos on 10/01/18 7:[address] Patient Name: HARRIS RAYO Encounter No: [id number] : 1950 Primary Insurance: NOVASYSMCR Anticipated DC Date: 09-24-2018 Planned Disposition: Half-Way Facility External Planned Provider: [facility], MEDICARE REHAB BED DCP follow-up note: CM FAXED REFERRAL [facility] AT [phone]. CM WAITING ADMISSION DETERMINATION AND INSURANCE DETERMINATION FOR REHAB AT [facility]. CAMILLE Peña MANAGEMENT DCP- Discharge Planning Updated by [id number]: Alex Cavazos on 09/27/18 3:[address] Patient Name: HARRIS RAYO Encounter No: [id number] : 1950 Primary Insurance: NOVASYSMCR Anticipated DC Date: 09-24-2018 Planned Disposition: Half-Way Facility External Planned Provider: [facility], MEDICARE REHAB BED DCP follow-up note: CM SPOKE TO PT AND SPOUSE IN ROOM REGARDING REHAB NEEDS. PT AND SPOUSE AGREE THAT PT NEEDS REHAB, PT'S SPOUSE CHOSE [facility] WITH SECOND CHOICE OF [facility]. CHOICE SIGNED. PT IN AGREEMENT. IMPORTANT MESSAGE FROM MEDICARE PROVIDED AND EXPLAINED. CM CALLED [facility], , SPOKE TO JACOB WHO VERIFIED BEING IN PT'S INSURANCE NETWORK AND WILL REVIEW FOR ADMISSION TO REHAB. CM FAXED REFERRAL TO [facility] AT [phone]. CM WAITING ADMISSION DETERMINATION AND INSURANCE DETERMINATION FOR REHAB AT [facility]. CAMILLE Peña DCP- Discharge Planning Updated by [id number]: Alex Cavazos on 09/25/18 9:[address] Patient Name: HARRIS RAYO Encounter No: [id number] : 1950 Primary Insurance: NOVASYSMCR Anticipated DC Date: 09-24-2018 Planned Disposition: assisted facility External Planned Provider: to be determined DCP follow-up note: CM RECEIVED CALL FROM AURORA PHELAN OF [facility], . AURORA IS PT'S INSURANCE AVIATION ENGINEER AND WILL BE FOLLOWING UP WITH PT POST DISCHARGE FOR CASE MANAGEMENT IF NEEDED. CM INFORMED AURORA OF CM'S CONVERSTATION WITH PT'S SPOUSE REGARDING POSSIBLE NEED OF [facility] REHAB AT DISCHARGE. PT'S SPOUSE REPORTED INABILITY TO CARE FOR PT AT HOME IN WEAKENED CONDITION. CM WAITING PT AND SPOUSE TO DISCUSS [facility] REHAB OPTIONS AND MAKE A DECISION. CAMILLE Peña MANAGEMENT DCP- Discharge Planning Updated by [id number]: Alex Cavazos on 09/24/18 4:[address] Patient Name: HARRIS RAYO Encounter No: [id number] : 1950 Primary Insurance: [employer]ath[employer]Eyes Anticipated DC Date: 09-24-2018 Planned Disposition: [facility] FACILITY External Planned Provider: TO BE DETERMINED DCP follow-up note: CM MET WITH PT AND SPOUSE IN ROOM TO DISCUSS DISCHARGE PLANNING AND NEEDS. CM UNABLE TO AWAKEN PT. PT'S SPOUSE REPORTS THE DOCTOR GAVE PT A SEDATIVE. CM DISCUSSED DISCHARGE PLANNING AND THERAPY NOTES TO DATE. PT'S SPOUSE REPORTS SHE IS NOT ABLE TO CARE FOR PT IN HIS WEAKENED STATE AT HOME AND PT WILL NEED REHAB. CM DISCUSSED AVAILABILITY OF INPATIENT AND [facility] REHAB. PT'S SPOUSE WANTS TO DISCUSS OPTIONS WITH PT WHEN HE IS AWAKE. CM LEFT PT'S SPOUSE WITH HOME HEALTH PROVIDER LISTING FOR [place], CHOICE FORM AND CM CONTACT INFORMATION. PT'S SPOUSE REPORTS INABILITY TO CARE FOR PT AT HOME IN WEAKENED CONDITION. CM WAITING PT AND SPOUSE TO DISCUSS [facility] REHAB OPTIONS AND MAKE A DECISION. CAMILLE Peña MANAGEMENT DCP- Discharge Planning Updated by [id number]: Radha Love on 09/21/18 1:[address] Patient Name: HARRIS RAYO Admission Status: ER Accout number: [id number] Admission Date: 09-19-2018 : 1950 Admission Diagnosis:WEAKNESS Attending: MILAGRO FORTE Current LOS: 2 Anticipated DC Date: 09-24-2018 Planned Disposition: Home with Home Health Primary Insurance: BreathalEyes Discharge Planning Comments: DC PLAN: Rehab vs Home with and Home Health. DC NEEDS: PT/OT Eval to see if he will participate. CM met with patient to complete initial dc planning assessment. Patient not answering questions so CM called his Peg. CM educated patient and Peg on the CM role and verbal consent given by patient's to complete assessment. CM verified patient's address, phone number, and emergency contact phone numbers. Patient lives at home with her. She reports for the past year and a half the patient has basically sat in his recliner 95 % of the time with 75% sleeping. She reports he gets up to go to the bathroom or to the refrigerator. She reports he basically crawls around when he does get out of the chair. Cm asked If he was able to get dressed or take his clothes off and she said he just doesn't wear clothes. He sits around naked (which is what he has done for a long time). At discharge she feel he would benefit from rehab but she is not sure he will agree to go. Patient shook his head yes when I asked him, however CM is not sure he will participate in therapy as he has been refusing most thing this far during his stay. Order received for OT/PT eval to see if he will participate. If he will not participate in therapy neither his insurance or a rehab will accept him. He is a managed medicare and will require authorization. Cm told the if he did not participate than he would have to return home and we could try home Health. She does not have a preference on HH and she cant remember who they have used in the past. Patient's reports she will transport him home at time of discharge if he is able to get in the car. If not he may require ambulance transport home. CM will continue to follow and will assist as needed with dc plans/needs. Electronics Technology Department Chair: Radha Love RN, [facility] DCPIA - Discharge Planning Initial Assessment Updated by [id number]: Radha Love on 09/21/18 2:45 pm * How many steps to enter\exit or inside your home? * PCP Dr. Scott * [facility] [address] * Preadmission Environment Home with Family * ADLs Partial Dependent * Partial ADLs (Assistance needed) Bathing Dressing Medication Management Toileting * Equipment Bedside Commode Cane * List name and contact numbers for known caregivers / representatives who currently or will assist patient after discharge: Peg Rayo - - [phone] * Verbal permission to speak to the caregivers and representatives has been obtained from the patient. Yes * Community resources currently utilized None * Additional services required to return to the preadmission environment? Yes * Can the patient safely return to the preadmission environment? Yes * Has this patient been hospitalized within the prior 30 days at any hospital? No External Providers External Provider: [facility] Next Contact Date: 10/03/2018 Service Request Date: Service Type: Resolution: Reviewer: Comments: Coverage Notice Reviewer: [id number] Jeanmarie Cavazos Notice Issued Date-Time: 09/27/2018 9:05 Notice Type: IM Discharge Notice Notice Delivered To: Family Member Relationship to Patient: Spouse Cigarette Package Examiner Name: LUPE RAYO Delivery Method: HAND - Hand Delivered Shamika Days: Prior Verbal Notification: Recipient Understood Notice: Yes Recipient Signature: Yes Med Rec Note Co-signed by Attending: Coverage Notice Comment: Reviewer: [id number] Jeanmarie Cavazos Notice Issued Date-Time: 09/27/2018 9:05 Notice Type: Patient Choice Letter Notice Delivered To: Family Member Relationship to Patient: Spouse Cigarette Package Examiner Name: LUPE RAYO Delivery Method: HAND - Hand Delivered Shamika Days: Prior Verbal Notification: Recipient Understood Notice: Yes Recipient Signature: Yes Med Rec Note Co-signed by Attending: Coverage Notice Comment: [facility] OR [facility] CHO[facility] FOR REHAB Last DP export: 10/03/18 6:29 a Patient Name: HARRIS RAYO Page [id number] at 1753 All edits/amendments must be made on the electronic document DICTATION DATE: 10/03/181752 SHIPBOARD INTELLIGENCE ANALYST: LYNDSAY 10/03/181752 RPT#: [id number] [place] DATE: STATUS: ADM IN [facility] [address] [place] [address] END OF REPORT
--- NOTE | 2018-10-03 18:02 | MORECARE ---
CASE MANAGEMENT DISCHARGE SUMMARY PATIENT: HARRIS RAYO UNIT: [id number] ADM DATE: 09/19/18 AGE: 68 : 51 SEX: M ROOM/BED: D.2104 AUTHOR: ALVA,DOC PHYSICIAN: REFERRING PHYSICIAN: MILAGRO FORTE MD DATE OF SERVICE: 10/03/18 Discharge Plan Patient Name: HARRIS RAYO Facility: [facility]:[place] : 1950 Planned Disposition: Intermediate Facility Anticipated Discharge Date: 09/24/18 Discharge Date: Expected LOS: 5 Initial Reviewer: [id number] Initial Review Date: 09/19/2018 Generated: 10/03/18 7:02 pm Comments DCP- Discharge Planning Updated by [email or web address]: Alex Cavazos on 10/03/18 4:[address] Patient Name: HARRIS RAYO Encounter No: [id number] : 1950 Primary Insurance: NOVASYSMCR Anticipated DC Date: 09-24-2018 Planned Disposition: Intermediate Facility External Planned Provider: [facility], MEDICARE REHAB BED DCP follow-up note: CM [facility] AND [facility] WHO REPORTS THAT PT WAS EVALUATED AND THE NURSE REPORTS PT IS NOT APPROPRIATE FOR REHAB SERVICES AND IS APPROPRIATE FOR ROAD WORKER CARE. THEY WILL NOT ACCEPT AND REPORTED THAT THE SCREENER NURSE WILL ATTEMPT TO SECURE PLACEMENT IN ANOTHER FACILITY AND WILL CALL CM. [facility], . CM WILL FOLLOW UP WITH LILI TOMORROW, 10-04-18. Alex Cavazos, CASE MANAGEMENT DCP- Discharge Planning Updated by [id number]: Alex Cavazos on 10/03/18 6:[address] Patient Name: HARRIS RAYO Encounter No: [id number] : 1950 Primary Insurance: NOVASYSMCR Anticipated DC Date: 09-24-2018 Planned Disposition: Intermediate Facility External Planned Provider: [facility], MEDICARE REHAB BED DCP follow-up note: CM FAXED HOSPITAL UPDATE TO [facility] AT [phone]. CM CONTINUES TO WAIT FOR ADMISSION DETERMINTION AND INSURANCE AUTHORIZATION FOR REHAB SERVICES AT [facility]. CAMILLE Peña MANGEMENT DCP- Discharge Planning Updated by [id number]: Alex Cavazos on 10/02/18 4:[address] Patient Name: HARRIS RAYO Encounter No: [id number] : 1950 Primary Insurance: NOVASYSMCR Anticipated DC Date: 09-24-2018 Planned Disposition: Intermediate Facility External Planned Provider: [facility], MEDICARE REHAB BED DCP follow-up note: [facility] NURSE HERE TO EVALUATE PT FOR REHAB ADMISSION. CM CONTINUES TO WAIT FOR ADMISSION DETERMINTION AND INSURANCE AUTHORIZATION FOR REHAB SERVICES AT [facility]. CAMILLE Peña MANGEMENT DCP- Discharge Planning Updated by [id number]: Alex Cavazos on 10/01/18 7:[address] Patient Name: HARRIS RAYO Encounter No: [id number] : 1950 Primary Insurance: NOVASYSMCR Anticipated DC Date: 09-24-2018 Planned Disposition: Intermediate Facility External Planned Provider: [facility], MEDICARE REHAB BED DCP follow-up note: CM FA[facility]ED REFERRAL [facility] AT [phone]. CM WAITING ADMISSION DETERMINATION AND INSURANCE DETERMINATION FOR REHAB AT [facility]. Alex Cavazos CASE MANAGEMENT DCP- Discharge Planning Updated by [id number]: Alex Cavazos on 09/27/18 3:[address] Patient Name: HARRIS RAYO Encounter No: [id number] : 1950 Primary Insurance: NOVASYSMCR Anticipated DC Date: 09-24-2018 Planned Disposition: Intermediate Facility External Planned Provider: [facility], MEDICARE REHAB BED DCP follow-up note: CM SPOKE TO PT AND SPOUSE IN ROOM REGARDING REHAB NEEDS. PT AND SPOUSE AGREE THAT PT NEEDS REHAB, PT'S SPOUSE CHOSE [facility] WITH SECOND CHOICE OF [facility]. CHOICE SIGNED. PT IN AGREEMENT. IMPORTANT MESSAGE FROM MEDICARE PROVIDED AND EXPLAINED. CM CALLED [facility], , SPOKE TO JACOB WHO VERIFIED BEING IN PT'S INSURANCE NETWORK AND WILL REVIEW FOR ADMISSION TO REHAB. CM FAXED REFERRAL TO [facility] AT [phone]. CM WAITING ADMISSION DETERMINATION AND INSURANCE DETERMINATION FOR REHAB AT [facility]. CAMILLE Peña DCP- Discharge Planning Updated by [id number]: Alex Cavazos on 09/25/18 9:[address] Patient Name: HARRIS RAYO Encounter No: [id number] : 1950 Primary Insurance: [id number] [place] Anticipated DC Date: 09-24-2018 Planned Disposition: residential facility External Planned Provider: to be determined DCP follow-up note: CM RECEIVED CALL FROM AURORA PHELAN OF [employer], . AURORA IS PT'S INSURANCE CAPSULE FILLER AND WILL BE FOLLOWING UP WITH PT POST DISCHARGE FOR CASE MANAGEMENT IF NEEDED. CM INFORMED AURORA OF CM'S CONVERSTATION WITH PT'S SPOUSE REGARDING POSSIBLE NEED OF PENITENTIARY REHAB AT DISCHARGE. PT'S SPOUSE REPORTED INABILITY TO CARE FOR PT AT HOME IN WEAKENED CONDITION. CM WAITING PT AND SPOUSE TO DISCUSS PENITENTIARY REHAB OPTIONS AND MAKE A DECISION. CAMILLE Peña DCP- Discharge Planning Updated by [id number]: Alex Cavazos on 09/24/18 4:[address] Patient Name: HARRIS RAYO Encounter No: [id number] : 1950 Primary Insurance: NOVASYSMCR Anticipated DC Date: 09-24-2018 Planned Disposition: PENITENTIARY FACILITY External Planned Provider: TO BE DETERMINED DCP follow-up note: CM MET WITH PT AND SPOUSE IN ROOM TO DISCUSS DISCHARGE PLANNING AND NEEDS. CM UNABLE TO AWAKEN PT. PT'S SPOUSE REPORTS THE DOCTOR GAVE PT A SEDATIVE. CM DISCUSSED DISCHARGE PLANNING AND THERAPY NOTES TO DATE. PT'S SPOUSE REPORTS SHE IS NOT ABLE TO CARE FOR PT IN HIS WEAKENED STATE AT HOME AND PT WILL NEED REHAB. CM DISCUSSED AVAILABILITY OF INPATIENT AND PENITENTIARY REHAB. PT'S SPOUSE WANTS TO DISCUSS OPTIONS WITH PT WHEN HE IS AWAKE. CM LEFT PT'S SPOUSE WITH HOME HEALTH PROVIDER LISTING FOR [facility], CHOICE FORM AND CM CONTACT INFORMATION. PT'S SPOUSE REPORTS INABILITY TO CARE FOR PT AT HOME IN WEAKENED CONDITION. CM WAITING PT AND SPOUSE TO DISCUSS PENITENTIARY REHAB OPTIONS AND MAKE A DECISION. Alex Cavazos CASE MANAGEMENT DCP- Discharge Planning Updated by [id number]: Radha Love on 09/21/18 1:[address] Patient Name: HARRIS RAYO Admission Status: ER Accout number: [id number] Admission Date: 09-19-2018 : 1950 Admission Diagnosis:WEAKNESS Attending: MILAGRO FORTE Current LOS: 2 Anticipated DC Date: 09-24-2018 Planned Disposition: Home with Home Health Primary Insurance: NOVASYSMCR Discharge Planning Comments: DC PLAN: Rehab vs Home with and Home Health. DC NEEDS: PT/OT Eval to see if he will participate. CM met with patient to complete initial dc planning assessment. Patient not answering questions so CM called his Peg. CM educated patient and Peg on the CM role and verbal consent given by patient's to complete assessment. CM verified patient's address, phone number, and emergency contact phone numbers. Patient lives at home with her. She reports for the past year and a half the patient has basically sat in his recliner 95 % of the time with 75% sleeping. She reports he gets up to go to the bathroom or to the refrigerator. She reports he basically crawls around when he does get out of the chair. Cm asked If he was able to get dressed or take his clothes off and she said he just doesn't wear clothes. He sits around naked (which is what he has done for a long time). At discharge she feel he would benefit from rehab but she is not sure he will agree to go. Patient shook his head yes when I asked him, however CM is not sure he will participate in therapy as he has been refusing most thing this far during his stay. Order received for OT/PT eval to see if he will participate. If he will not participate in therapy neither his insurance or a rehab will accept him. He is a managed medicare and will require authorization. Cm told the if he did not participate than he would have to return home and we could try home Health. She does not have a preference on HH and she cant remember who they have used in the past. Patient's reports she will transport him home at time of discharge if he is able to get in the car. If not he may require ambulance transport home. CM will continue to follow and will assist as needed with dc plans/needs. Roving Inspector: Radha Love RN, [facility] DCPIA - Discharge Planning Initial Assessment Updated by [email or web address]: Radha Love on 09/21/18 2:45 pm * How many steps to enter\exit or inside your home? * PCP Dr. Scott * [facility]acy [facility] [address] * Preadmission Environment Home with Family * ADLs Partial Dependent * Partial ADLs (Assistance needed) Bathing Dressing Medication Management Toileting * Equipment Bedside Commode Cane * List name and contact numbers for known caregivers / representatives who currently or will assist patient after discharge: Peg Rayo - - [phone] * Verbal permission to speak to the caregivers and representatives has been obtained from the patient. Yes * Community resources currently utilized None * Additional services required to return to the preadmission environment? Yes * Can the patient safely return to the preadmission environment? Yes * Has this patient been hospitalized within the prior 30 days at any hospital? No Coverage Notice Reviewer: [email or web address] Cavazos Notice Issued Date-Time: 09/27/2018 9:05 Notice Type: IM Discharge Notice Notice Delivered To: Family Member Relationship to Patient: Spouse Compensation Intern Name: LUPE RAYO Delivery Method: HAND - Hand Delivered Shamika Days: Prior Verbal Notification: Recipient Understood Notice: Yes Recipient Signature: Yes Med Rec Note Co-signed by Attending: Coverage Notice Comment: Reviewer: [id number] Cavazos Notice Issued Date-Time: 09/27/2018 9:05 Notice Type: Patient Choice Letter Notice Delivered To: Family Member Relationship to Patient: Spouse Compensation Intern Name: LUPE RAYO Delivery Method: HAND - Hand Delivered Shamika Days: Prior Verbal Notification: Recipient Understood Notice: Yes Recipient Signature: Yes Med Rec Note Co-signed by Attending: Coverage Notice Comment: [facility] FOR REHAB Last DP export: 10/03/18 4:53 p Patient Name: HARRIS RAYO Page 52330 at 1802 All edits/amendments must be made on the electronic document DICTATION DATE: 10/03/181801 TOP WADDY: LYNDSAY 10/03/181801 RPT#: [id number] DC DATE: STATUS: ADM IN [facility] [address] [place] [address] END OF REPORT
--- NOTE | 2018-10-03 18:15 | NUR ---
PT AWAKE EATING SUPPER. NO C/O PAIN. NO S/S OF ACUTE DISTRESS NOTED. CALL LIGHT IN REACH. PT DENIES ANY NEEDS AT THIS TIME. WILL CONTINUE TO MONITOR.
[2018-10-03 20:17] VITALS: BP 147/77
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
[2018-10-04 00:10] VITALS: BP 149/93
[2018-10-04 04:41] VITALS: BP 151/95
[2018-10-04 05:40] LABS: ANION GAP 8.3 mmol/L (8-16); CALCIUM 8.8 mg/dL (8.5-10.1); CARBON DIOXIDE 31.8 mmol/L (21.0-32.0); CREATININE - SERUM 1.1 mg/dL (0.6-1.3); POTASSIUM - SERUM 4.1 mmol/L (3.5-5.1)
[2018-10-04 06:32] LABS: BASOPHILS 0.4 % (0-2); HEMATOCRIT 41.8 % (42.0-54.0); HEMOGLOBIN 13.7 g/dL (13.5-17.5); IMMATURE GRANULOCYTES 0.1 % (0-5); LYMPHOCYTES 11.2 % (15-50); MCH 24.6 pg (26.0-34.0); MCHC 32.8 g/dL (31.0-37.0); MCV 74.9 fL (80.0-100.0); MONOCYTES 15.7 % (2-11); NEUTROPHILS 69.6 % (40-80); PLATELET COUNT 188 10x3/uL (130-400); RBC 5.58 10x6/uL (4.20-6.10); RDW 21.5 % (11.5-14.5); WBC 6.9 10x3/uL (4.8-10.8)
--- NOTE | 2018-10-04 08:25 | NUR ---
PATIENT IS SITTING UP IN BED. HE NEEDS FEEDING ASSISTANCE. GIVEN [facility] BREAKFAST, HE ATE ALL HIS EGGS. HE IS VERY QUIET AND DOES NOT SAY ANYTHING AT THIS TIME.
--- NOTE | 2018-10-04 08:41 | MORECARE ---
CASE MANAGEMENT DISCHARGE SUMMARY PATIENT: HARRIS RAYO UNIT: [id number] ADM DATE: 09/19/18 AGE: 68 : 51 SEX: M ROOM/BED: D.2104 AUTHOR: ALVA,DOC PHYSICIAN: REFERRING PHYSICIAN: MILAGRO FORTE MD DATE OF SERVICE: 10/04/18 Discharge Plan Patient Name: HARRIS RAYO Facility: [facility]:[place] : 1950 Planned Disposition: Long-Term Facility Anticipated Discharge Date: 09/24/18 Discharge Date: Expected LOS: 5 Initial Reviewer: [id number] Initial Review Date: 09/19/2018 Generated: 10/04/18 9:40 am Comments DCP- Discharge Planning Updated by [email or web address]: Alex Cavazos on 10/04/18 7:[address] Patient Name: HARRIS RAYO Encounter No: [id number] : 1950 Primary Insurance: [employer]CR Anticipated DC Date: 09-24-2018 Planned Disposition: Long-Term Facility External Planned Provider: : [facility], MEDICARE REHAB BED DCP follow-up note: CM [facility] TO [facility], . CM WAITING ADMISSION DETERMINATION FROM [facility]. CM WILL FOLLOW UP WITH LINDEN VIA PHONE TODAY, 10-04-18. Alex Cavazos, CASE MANAGEMENT DCP- Discharge Planning Updated by [email or web address]: Alex Cavazos on 10/03/18 4:[address] Patient Name: HARRIS RAYO Encounter No: [id number] : 1950 Primary Insurance: NOVASYSMCR Anticipated DC Date: 09-24-2018 Planned Disposition: Long-Term Facility External Planned Provider: [facility], MEDICARE REHAB BED DCP follow-up note: CM CALLED AND SPOKE TO EDDIE OF [facility] WHO REPORTS THAT PT WAS EVALUATED AND THE NURSE REPORTS PT IS NOT APPROPRIATE FOR REHAB SERVICES AND IS APPROPRIATE FOR LONGTERM CARE. THEY WILL NOT ACCEPT AND REPORTED THAT THE SCREENER NURSE WILL ATTEMPT TO SECURE PLACEMENT IN ANOTHER FACILITY AND WILL CALL CM. CM FA[facility]ED REFERRAL TO [facility], . CM WILL FOLLOW UP WITH LINDEN TOMORROW, 10-04-18. CAMILLE Peña MANAGEMENT DCP- Discharge Planning Updated by [email or web address]: Alex Cavazos on 10/03/18 6:[address] Patient Name: HARRIS RAYO Encounter No: [id number] : 1950 Primary Insurance: N[employer]ASYSMCR Anticipated DC Date: 09-24-2018 Planned Disposition: Long-Term Facility External Planned Provider: [facility], MEDICARE REHAB BED DCP follow-up note: CM FAXED HOSPITAL UPDATE TO [facility] AT [phone]. CM CONTINUES TO WAIT FOR ADMISSION DETERMINTION AND INSURANCE AUTHORIZATION FOR REHAB SERVICES AT [facility]. CAMILLE Peña MANGEMENT DCP- Discharge Planning Updated by [id number]: Alex Cavazos on 10/02/18 4:[address] Patient Name: HARRIS RAYO Encounter No: [id number] : 1950 Primary Insurance: [employer]YSMCR Anticipated DC Date: 09-24-2018 Planned Disposition: Long-Term Facility External Planned Provider: [facility], MEDICARE REHAB BED DCP follow-up note: [facility] NURSE HERE TO EVALUATE PT FOR REHAB ADMISSION. CM CONTINUES TO WAIT FOR ADMISSION DETERMINTION AND INSURANCE AUTHORIZATION FOR REHAB SERVICES AT [facility]. CAMILLE Peña DCP- Discharge Planning Updated by [email or web address]: Alex Cavazos on 10/01/18 7:[address] Patient Name: HARRIS RAYO Encounter No: [id number] : 1950 Primary Insurance: NOVASYSMCR Anticipated DC Date: 09-24-2018 Planned Disposition: Long-Term Facility External Planned Provider: [facility], MEDICARE REHAB BED DCP follow-up note: CM FAXED REFERRAL [facility] AT [phone]. CM WAITING ADMISSION DETERMINATION AND INSURANCE DETERMINATION FOR REHAB AT [facility]. CAMILLE Peña DCP- Discharge Planning Updated by [email or web address]: Alex Cavazos on 09/27/18 3:[address] Patient Name: HARRIS RAYO Encounter No: [id number] : 06-02-1951 Primary Insurance: [employer]YSMCR Anticipated DC Date: 09-24-2018 Planned Disposition: Long-Term Facility External Planned Provider: [facility], MEDICARE REHAB BED DCP follow-up note: CM SPOKE TO PT AND SPOUSE IN ROOM REGARDING REHAB NEEDS. PT AND SPOUSE AGREE THAT PT NEEDS REHAB, PT'S SPOUSE CHOSE [facility] WITH SECOND CHOICE OF [facility]. CHOICE SIGNED. PT IN AGREEMENT. IMPORTANT MESSAGE FROM MEDICARE PROVIDED AND EXPLAINED. CM CALLED [facility], , SPOKE TO JACOB WHO VERIFIED BEING IN PT'S INSURANCE NETWORK AND WILL REVIEW FOR ADMISSION TO REHAB. CM FAXED REFERRAL TO [facility] AT [phone]. CM WAITING ADMISSION DETERMINATION AND INSURANCE DETERMINATION FOR REHAB AT [facility]. CAMILLE Peña MANAGEMENT DCP- Discharge Planning Updated by [email or web address]: Alex Cavazos on 09/25/18 9:[address] Patient Name: HARRIS RAYO Encounter No: [id number] : 1950 Primary Insurance: NOVASYSMCR Anticipated DC Date: 09-24-2018 Planned Disposition: custodial facility External Planned Provider: to be determined DCP follow-up note: CM RECEIVED CALL FROM AURORA PHELAN OF [employer] . AURORA IS PT'S INSURANCE CLINICAL FIELD SPECIALIST AND WILL BE FOLLOWING UP WITH PT POST DISCHARGE FOR CASE MANAGEMENT IF NEEDED. CM INFORMED AURORA OF CM'S CONVERSTATION WITH PT'S SPOUSE REGARDING POSSIBLE NEED OF LONGTERM REHAB AT DISCHARGE. PT'S SPOUSE REPORTED INABILITY TO CARE FOR PT AT HOME IN WEAKENED CONDITION. CM WAITING PT AND SPOUSE TO DISCUSS LONGTERM REHAB OPTIONS AND MAKE A DECISION. CAMILLE Peña DCP- Discharge Planning Updated by [id number]: Alex Cavazos on 09/24/18 4:[address] Patient Name: HARRIS RAYO Encounter No: [id number] : 1950 Primary Insurance: NOVASYSMCR Anticipated DC Date: 09-24-2018 Planned Disposition: LONGTERM FACILITY External Planned Provider: TO BE DETERMINED DCP follow-up note: CM MET WITH PT AND SPOUSE IN ROOM TO DISCUSS DISCHARGE PLANNING AND NEEDS. CM UNABLE TO AWAKEN PT. PT'S SPOUSE REPORTS THE DOCTOR GAVE PT A SEDATIVE. CM DISCUSSED DISCHARGE PLANNING AND THERAPY NOTES TO DATE. PT'S SPOUSE REPORTS SHE IS NOT ABLE TO CARE FOR PT IN HIS WEAKENED STATE AT HOME AND PT WILL NEED REHAB. CM DISCUSSED AVAILABILITY OF INPATIENT AND LONGTERM REHAB. PT'S SPOUSE WANTS TO DISCUSS OPTIONS WITH PT WHEN HE IS AWAKE. CM LEFT PT'S SPOUSE WITH HOME HEALTH PROVIDER LISTING FOR [place], CHOICE FORM AND CM CONTACT INFORMATION. PT'S SPOUSE REPORTS INABILITY TO CARE FOR PT AT HOME IN WEAKENED CONDITION. CM WAITING PT AND SPOUSE TO DISCUSS LONGTERM REHAB OPTIONS AND MAKE A DECISION. Alex Cavazos, CASE MANAGEMENT DCP- Discharge Planning Updated by [id number]: Radha Love on 09/21/18 1:[address] Patient Name: HARRIS RAYO Admission Status: ER Accout number: [id number] Admission Date: 09-19-2018 : 1950 Admission Diagnosis:WEAKNESS Attending: MILAGRO FORTE Current LOS: 2 Anticipated DC Date: 09-24-2018 Planned Disposition: Home with Home Health Primary Insurance: [employer] Discharge Planning Comments: DC PLAN: Rehab vs Home with and Home Health. DC NEEDS: PT/OT Eval to see if he will participate. CM met with patient to complete initial dc planning assessment. Patient not answering questions so CM called his Peg. CM educated patient and Peg on the CM role and verbal consent given by patient's to complete assessment. CM verified patient's address, phone number, and emergency contact phone numbers. Patient lives at home with her. She reports for the past year and a half the patient has basically sat in his recliner 95 % of the time with 75% sleeping. She reports he gets up to go to the bathroom or to the refrigerator. She reports he basically crawls around when he does get out of the chair. Cm asked If he was able to get dressed or take his clothes off and she said he just doesn't wear clothes. He sits around naked (which is what he has done for a long time). At discharge she feel he would benefit from rehab but she is not sure he will agree to go. Patient shook his head yes when I asked him, however CM is not sure he will participate in therapy as he has been refusing most thing this far during his stay. Order received for OT/PT eval to see if he will participate. If he will not participate in therapy neither his insurance or a rehab will accept him. He is a managed medicare and will require authorization. Cm told the if he did not participate than he would have to return home and we could try home Health. She does not have a preference on HH and she cant remember who they have used in the past. Patient's reports she will transport him home at time of discharge if he is able to get in the car. If not he may require ambulance transport home. CM will continue to follow and will assist as needed with dc plans/needs. [employer] Senior Specialist: Radha Love RN, [facility] DCPIA - Discharge Planning Initial Assessment Updated by [id number]: Radha Love on 09/21/18 2:45 pm * How many steps to enter\exit or inside your home? * PCP Dr. Scott * [facility] [address] * Preadmission Environment Home with Family * ADLs Partial Dependent * Partial ADLs (Assistance needed) Bathing Dressing Medication Management Toileting * Equipment Bedside Commode Cane * List name and contact numbers for known caregivers / representatives who currently or will assist patient after discharge: Peg Rayo - - [phone] * Verbal permission to speak to the caregivers and representatives has been obtained from the patient. Yes * Community resources currently utilized None * Additional services required to return to the preadmission environment? Yes * Can the patient safely return to the preadmission environment? Yes * Has this patient been hospitalized within the prior 30 days at any hospital? No Coverage Notice Reviewer: [id number] Jeanmarie Cavazos Notice Issued Date-Time: 09/27/2018 9:05 Notice Type: IM Discharge Notice Notice Delivered To: Family Member Relationship to Patient: Spouse Rn Gynecology Name: LUPE RAYO Delivery Method: HAND - Hand Delivered Shamika Days: Prior Verbal Notification: Recipient Understood Notice: Yes Recipient Signature: Yes Med Rec Note Co-signed by Attending: Coverage Notice Comment: Reviewer: [id number] Jeanmarie Cavazos Notice Issued Date-Time: 09/27/2018 9:05 Notice Type: Patient Choice Letter Notice Delivered To: Family Member Relationship to Patient: Spouse Rn Gynecology Name: LUPE RAYO Delivery Method: HAND - Hand Delivered Shamika Days: Prior Verbal Notification: Recipient Understood Notice: Yes Recipient Signature: Yes Med Rec Note Co-signed by Attending: Coverage Notice Comment: [facility] OR SECOND CHOICE [facility] FOR REHAB Last DP export: 10/03/18 5:02 p Patient Name: HARRIS RAYO Page 34700 at 0841 All edits/amendments must be made on the electronic document DICTATION DATE: 10/04/18839 GROUP CONTRACT ANALYST: LYNDSAY 10/04/18839 RPT#: [id number] DC DATE: STATUS: ADM IN [facility] [address] [place] [address] END OF REPORT
[2018-10-04 08:55] VITALS: BP 151/83
--- NOTE | 2018-10-04 08:59 | MORECARE ---
CASE MANAGEMENT DISCHARGE SUMMARY PATIENT: HARRIS RAYO UNIT: [id number] ADM DATE: 09/19/18 AGE: 68 : 51 SEX: M ROOM/BED: D.2104 AUTHOR: ALVA,DOC PHYSICIAN: REFERRING PHYSICIAN: MILAGRO FORTE MD DATE OF SERVICE: 10/04/18 Discharge Plan Patient Name: HARRIS RAYO Facility: [facility]:[place] : 1950 Planned Disposition: Snf Facility Anticipated Discharge Date: 09/24/18 Discharge Date: Expected LOS: 5 Initial Reviewer: [id number] Initial Review Date: 09/19/2018 Generated: 10/04/18 9:59 am Comments DCP- Discharge Planning Updated by [email or web address]: Alex Cavazos on 10/04/18 7:[address] Patient Name: HARRIS RAYO Encounter No: [id number] : 1950 Primary Insurance: [employer]YSMCR Anticipated DC Date: 09-24-2018 Planned Disposition: Snf Facility External Planned Provider: [facility], MEDICARE REHAB BED DCP follow-up note: CM RECEIVED CALL FROM [facility], , WHO INFORMED CM THAT [facility] REQUESTED DOCTOR DOCUMENTATION OF NEED FOR SNF AND SHE CANNOT FIND THE PT EVALUATION IN THE REFERRAL INFORMATION. CM FAXED THE REQUESTED INFORMATION TO [facility] AT [phone]. CM WAITING ADMISSION DETERMINATION WELL INSURANCE AUTHORIZATION FOR REHAB SERVICES AT [facility] CAMILLE Peña DCP- Discharge Planning Updated by [email or web address]: Alex Cavazos on 10/04/18 7:[address] Patient Name: HARRIS RAYO Encounter No: [id number] : 1950 Primary Insurance: NOVASYSMCR Anticipated DC Date: 09-24-2018 Planned Disposition: Snf Facility External Planned Provider: : [facility], MEDICARE REHAB BED DCP follow-up note: CM FAXED REFERRAL TO [facility], . CM WAITING ADMISSION DETERMINATION FROM [facility] NURSING [facility]. CM WILL FOLLOW UP WITH LINDEN VIA PHONE TODAY, 10-04-18. Alex Dirk, CASE MANAGEMENT DCP- Discharge Planning Updated by [id number]: Alex Cavazos on 10/03/18 4:[address] Patient Name: HARRIS RAYO Encounter No: [id number] : 1950 Primary Insurance: [employer]MCR Anticipated DC Date: 09-24-2018 Planned Disposition: Snf Facility External Planned Provider: [facility], MEDICARE REHAB BED DCP follow-up note: CM CALLED AND SPOKE TO EDDIE OF [facility] WHO REPORTS THAT PT WAS EVALUATED AND THE NURSE REPORTS PT IS NOT APPROPRIATE FOR REHAB SERVICES AND IS APPROPRIATE FOR PENITENTIARY CARE. THEY WILL NOT ACCEPT AND REPORTED THAT THE SCREENER NURSE WILL ATTEMPT TO SECURE PLACEMENT IN ANOTHER FACILITY AND WILL CALL CM. CM FAXED REFERRAL TO [facility], . CM WILL FOLLOW UP WITH LINDEN TOMORROW, 10-04-18. CAMILLE Peña MANAGEMENT DCP- Discharge Planning Updated by [id number]: Alex Cavazos on 10/03/18 6:[address] Patient Name: HARRIS RAYO Encounter No: [id number] : 1950 Primary Insurance: [employer]YSMCR Anticipated DC Date: 09-24-2018 Planned Disposition: Snf Facility External Planned Provider: [facility], MEDICARE REHAB BED DCP follow-up note: CM FAXED HOSPITAL UPDATE TO [facility] AT [phone]. CM CONTINUES TO WAIT FOR ADMISSION DETERMINTION AND INSURANCE AUTHORIZATION FOR REHAB SERVICES AT [facility]. CAMILLE Peña DCP- Discharge Planning Updated by [id number]: Alex Cavazos on 10/02/18 4:[address] Patient Name: HARRIS RAYO Encounter No: [id number] : 1950 Primary Insurance: [employer]MCR Anticipated DC Date: 09-24-2018 Planned Disposition: Snf Facility External Planned Provider: [facility], MEDICARE REHAB BED DCP follow-up note: [facility] NURSE HERE TO EVALUATE PT FOR REHAB ADMISSION. CM CONTINUES TO WAIT FOR ADMISSION DETERMINTION AND INSURANCE AUTHORIZATION FOR REHAB SERVICES AT [facility]. CAMILLE PeñaEMENT DCP- Discharge Planning Updated by [email or web address]: Alex Cavazos on 10/01/18 7:[address] Patient Name: HARRIS RAYO Encounter No: [id number] : 1950 Primary Insurance: N[employer]ASYSMCR Anticipated DC Date: 09-24-2018 Planned Disposition: Snf Facility External Planned Provider: [facility], MEDICARE REHAB BED DCP follow-up note: CM FAXED REFERRAL [facility] AT [phone]. CM WAITING ADMISSION DETERMINATION AND INSURANCE DETERMINATION FOR REHAB AT [facility]. Alex Cavazos CASE MANAGEMENT DCP- Discharge Planning Updated by [id number]: Alex Cavazos on 09/27/18 3:[address] Patient Name: HARRIS RAYO Encounter No: [id number] : 1950 Primary Insurance: [employer] Anticipated DC Date: 09-24-2018 Planned Disposition: Snf Facility External Planned Provider: [facility], MEDICARE REHAB BED DCP follow-up note: CM SPOKE TO PT AND SPOUSE IN ROOM REGARDING REHAB NEEDS. PT AND SPOUSE AGREE THAT PT NEEDS REHAB, PT'S SPOUSE CHOSE [facility] WITH SECOND CHOICE OF [facility]. CHOICE SIGNED. PT IN AGREEMENT. IMPORTANT MESSAGE FROM MEDICARE PROVIDED AND EXPLAINED. CM CALLED [facility], , SPOKE TO JACOB WHO VERIFIED BEING IN PT'S INSURANCE NETWORK AND WILL REVIEW FOR ADMISSION TO REHAB. CM FAXED REFERRAL TO [facility] AT [phone]. CM WAITING ADMISSION DETERMINATION AND INSURANCE DETERMINATION FOR REHAB AT [facility]. Alex Cavazos CASE MANAGEMENT DCP- Discharge Planning Updated by [id number]: Alex Cavazos on 09/25/18 9:[address] Patient Name: HARRIS RAYO Encounter No: [id number] : 1950 Primary Insurance: [employer]MCR Anticipated DC Date: 09-24-2018 Planned Disposition: shelter facility External Planned Provider: to be determined DCP follow-up note: CM RECEIVED CALL FROM AURORA PHELAN OF [facility], . AURORA IS PT'S INSURANCE BUDGET CONTROLLER AND WILL BE FOLLOWING UP WITH PT POST DISCHARGE FOR CASE MANAGEMENT IF NEEDED. CM INFORMED AURORA OF CM'S CONVERSTATION WITH PT'S SPOUSE REGARDING POSSIBLE NEED OF DETENTION REHAB AT DISCHARGE. PT'S SPOUSE REPORTED INABILITY TO CARE FOR PT AT HOME IN WEAKENED CONDITION. CM WAITING PT AND SPOUSE TO DISCUSS DETENTION REHAB OPTIONS AND MAKE A DECISION. CAMILLE Peña MANAGEMENT DCP- Discharge Planning Updated by [email or web address]: Alex Cavazos on 09/24/18 4:[address] Patient Name: HARRIS RAYO Encounter No: [id number] : 1950 Primary Insurance: [employer] Anticipated DC Date: 09-24-2018 Planned Disposition: DETENTION FACILITY External Planned Provider: TO BE DETERMINED DCP follow-up note: CM MET WITH PT AND SPOUSE IN ROOM TO DISCUSS DISCHARGE PLANNING AND NEEDS. CM UNABLE TO AWAKEN PT. PT'S SPOUSE REPORTS THE DOCTOR GAVE PT A SEDATIVE. CM DISCUSSED DISCHARGE PLANNING AND THERAPY NOTES TO DATE. PT'S SPOUSE REPORTS SHE IS NOT ABLE TO CARE FOR PT IN HIS WEAKENED STATE AT HOME AND PT WILL NEED REHAB. CM DISCUSSED AVAILABILITY OF INPATIENT AND DETENTION REHAB. PT'S SPOUSE WANTS TO DISCUSS OPTIONS WITH PT WHEN HE IS AWAKE. CM LEFT PT'S SPOUSE WITH HOME HEALTH PROVIDER LISTING FOR [place], CHOICE FORM AND CM CONTACT INFORMATION. PT'S SPOUSE REPORTS INABILITY TO CARE FOR PT AT HOME IN WEAKENED CONDITION. CM WAITING PT AND SPOUSE TO DISCUSS DETENTION REHAB OPTIONS AND MAKE A DECISION. CAMILLE Peña MANAGEMENT DCP- Discharge Planning Updated by [id number]: Radha Love on 09/21/18 1:[address] Patient Name: HARRIS RAYO Admission Status: ER Accout number: [id number] Admission Date: 09-19-2018 : 1950 Admission Diagnosis:WEAKNESS Attending: MILAGRO FORTE Current LOS: 2 Anticipated DC Date: 09-24-2018 Planned Disposition: Home with Home Health Primary Insurance: [employer] Discharge Planning Comments: DC PLAN: Rehab vs Home with and Home Health. DC NEEDS: PT/OT Eval to see if he will participate. CM met with patient to complete initial dc planning assessment. Patient not answering questions so CM called his Peg. CM educated patient and Peg on the CM role and verbal consent given by patient's to complete assessment. CM verified patient's address, phone number, and emergency contact phone numbers. Patient lives at home with her. She reports for the past year and a half the patient has basically sat in his recliner 95 % of the time with 75% sleeping. She reports he gets up to go to the bathroom or to the refrigerator. She reports he basically crawls around when he does get out of the chair. Cm asked If he was able to get dressed or take his clothes off and she said he just doesn't wear clothes. He sits around naked (which is what he has done for a long time). At discharge she feel he would benefit from rehab but she is not sure he will agree to go. Patient shook his head yes when I asked him, however CM is not sure he will participate in therapy as he has been refusing most thing this far during his stay. Order received for OT/PT finn to see if he will participate. If he will not participate in therapy neither his insurance or a rehab will accept him. He is a managed medicare and will require authorization. Cm told the if he did not participate than he would have to return home and we could try home Health. She does not have a preference on HH and she cant remember who they have used in the past. Patient's reports she will transport him home at time of discharge if he is able to get in the car. If not he may require ambulance transport home. CM will continue to follow and will assist as needed with dc plans/needs. Chiropractic Care: Radha Love RN, [facility] DCPIA - Discharge Planning Initial Assessment Updated by [email or web address]: Radha Love on 09/21/18 2:45 pm * How many steps to enter\exit or inside your home? * PCP Dr. Scott * [facility] * Preadmission Environment Home with Family * ADLs Partial Dependent * Partial ADLs (Assistance needed) Bathing Dressing Medication Management Toileting * Equipment Bedside Commode Cane * List name and contact numbers for known caregivers / representatives who currently or will assist patient after discharge: Peg Rayo - - [phone] * Verbal permission to speak to the caregivers and representatives has been obtained from the patient. Yes * Community resources currently utilized None * Additional services required to return to the preadmission environment? Yes * Can the patient safely return to the preadmission environment? Yes * Has this patient been hospitalized within the prior 30 days at any hospital? No Coverage Notice Reviewer: [id number] Jeanmarie Cavazos Notice Issued Date-Time: 09/27/2018 9:05 Notice Type: IM Discharge Notice Notice Delivered To: Family Member Relationship to Patient: Spouse Government Service Executive Name: LUPE RAYO Delivery Method: HAND - Hand Delivered Shamika Days: Prior Verbal Notification: Recipient Understood Notice: Yes Recipient Signature: Yes Med Rec Note Co-signed by Attending: Coverage Notice Comment: Reviewer: [id number] Cavazos Notice Issued Date-Time: 09/27/2018 9:05 Notice Type: Patient Choice Letter Notice Delivered To: Family Member Relationship to Patient: Spouse Government Service Executive Name: LUPE RAYO Delivery Method: HAND - Hand Delivered Shamika Days: Prior Verbal Notification: Recipient Understood Notice: Yes Recipient Signature: Yes Med Rec Note Co-signed by Attending: Coverage Notice Comment: [facility] FOR REHAB Last DP export: 10/04/18 7:41 a Patient Name: HARRIS RAYO Page 24141 at 0859 All edits/amendments must be made on the electronic document DICTATION DATE: 10/04/18858 CAP AND HAT PRODUCTION SUPERVISOR: LYNDSAY 10/04/18 0859 RPT#: [id number] DC DATE: STATUS: ADM IN [facility] [address] [place] [address] END OF REPORT
--- NOTE | 2018-10-04 14:35 | NUR ---
OT NOTE: PT APPARENTLY WITH CATHETER LEAK HIS BEAD WAS SOAKED WITH URINE. NURSING NOTIFIED. MOD ASSIST WITH BED MOB; MIN ASSIST WITH STATIC SITTING ON EOB; TRANSFER FROM BED TO CHAIR WITH MAX ASSIST. PT ABLE TO WASH FACE, HANDS, AND UPPER BODY WITH SET UP; MAX ASSIST FOR PERINEAL AREA, MOD ASSIST WITH LES. MIN ASSIST TO COMB HAIR. ASKED PT IF HE WOULD BE OPPOSSED TO THERAPIST TRIMMING HIS HOPSON AND HE STATED THAT IT WOULD BE FINE. COMBED AND TRIMMED HOPSON; PROVIDED WASH CLOTH FOR PT TO CLEAN HOPSON AND FACE AGAIN. MIN ASSIST TO RADHA GOWN. CHECKED ON PT IN AFTERNOON TO SEE IF HE WANTED TO GO BACK TO BED.. PT STATED "NO".. YARON BALBUENA, OTR/L
--- NOTE | 2018-10-04 15:09 | NUR ---
OT NOTE: PT COMPLETED HYGIENE TASKS WITH MAX A. PT REQUIRED EXTENSIVE CUES FOR INCREASED PARTICIPATION. PT COMPLETED HAIR GROOMING WITH MOD A FOR COMBING. PT COMPLETED SITTING BALANCE WITH SBA. NURSING NOTIFIED THAT CATHETER MAY HAVE A LEAK. THANK YOU, ACRO HERNANDEZ
[2018-10-04 15:36] VITALS: BP 158/79
[2018-10-04 20:00] VITALS: BP 125/66
--- NOTE | 2018-10-04 22:05 | NUR ---
EVENING ROUNDS COMPLETED. VSS, AAOX1, WITH EPISODES OF CONFUSION. PT HAS NO S/S OF SYMPTOMS DISTRESS. PT STATES HE HAS BEEN IN BED ALL DAY AND WILL LIKE TO SIT UP. ASSIST PT TO SIT UP IN BED . WILKINS INTACT WITH SAMANTHA. OUTPUT. PT DENIES ANY FURTHER NEEDS AT THIS TIME. WILL CTM. CL WITHIN REACH, BED IN LOW, SR UP X2.
[2018-10-05] VITALS: BP 110/65
[2018-10-05 04:00] VITALS: BP 161/93
--- NOTE | 2018-10-05 07:51 | NUR ---
PATIENT IS RESTING IN BED, EYES CLOSED. HE HAD A BATH LAST NIGHT AND STILL HAS A WILKINS IN PLACE. DENIES ANY NEEDS AT THIS TIME.
--- NOTE | 2018-10-05 07:52 | NUR ---
PATIENT STILL HAS NO IV, BECASUE HE GETS CONFUSED AND PULLS THEM OUT. HE HAS NOT PULLED OUT HIS WILKINS THANKFULLY. HE WANTS TO GET UP TO THE BEDSIDE COMMODE TO USE THE BATHROOM, HOWEVER HE HAS VERY LITTLE STRENGTH IN HIS RIGHT LEG, AND HE HAS A LEFT BKA.
[2018-10-05 08:00] VITALS: BP 134/99
--- NOTE | 2018-10-05 08:30 | MORECARE ---
CASE MANAGEMENT DISCHARGE SUMMARY PATIENT: HARRIS RAYO UNIT: [id number] ADM DATE: 09/19/18 AGE: 68 : 51 SEX: M ROOM/BED: D.2104 AUTHOR: ALVA,DOC PHYSICIAN: REFERRING PHYSICIAN: MILAGRO FORTE MD DATE OF SERVICE: 10/05/18 Discharge Plan Patient Name: HARRIS RAYO Facility: [facility]:[place] : 1950 Planned Disposition: Jail Facility Anticipated Discharge Date: 10/05/18 Discharge Date: Expected LOS: 16 Initial Reviewer: [id number] Initial Review Date: 09/19/2018 Generated: 10/05/18 9:29 am Comments DCP- Discharge Planning Updated by [email or web address]: Alex Cavazos on 10/05/18 7:[address] Patient Name: HARRIS RAYO Encounter No: [id number] : 1950 Primary Insurance: NOVASYSMCR Anticipated DC Date: 09-24-2018 Planned Disposition: Jail Facility External Planned Provider: [facility], MEDICARE REHAB BED DCP follow-up note: [facility], MEDICARE REHAB BED DCP follow-up note: CM CALLED AND SPOKE TO [facility], , WHO INFORMED CM THAT THEY WILL ACCEPT AND ARE WAITING INSURANCE AUTHORZIATION FOR REHAB SERVICES. CM FAXED THE REQUESTED INFORMATION TO [facility] AT [phone]. JORGE UPDATED CEDRICK VELASCO CM WAITING INSURANCE AUTHORIZATION FOR REHAB SERVICES AT [facility]. CAMILLE Peña DCP- Discharge Planning Updated by [id number]: Alex Cavazos on 10/04/18 7:[address] Patient Name: HARRIS RAYO Encounter No: [id number] : 1950 Primary Insurance: NOVASYSMCR Anticipated DC Date: 09-24-2018 Planned Disposition: Jail Facility External Planned Provider: [facility], MEDICARE REHAB BED DCP follow-up note: CM RECEIVED CALL FROM [facility], , WHO INFORMED CM THAT CURT REQUESTED DOCTOR DOCUMENTATION OF NEED FOR SNF AND SHE CANNOT FIND THE PT EVALUATION IN THE REFERRAL INFORMATION. CM FAXED THE REQUESTED INFORMATION TO [facility] AT [phone]. CM WAITING ADMISSION DETERMINATION WELL INSURANCE AUTHORIZATION FOR REHAB SERVICES AT [facility]. CAMILLE PeñaEMENT DCP- Discharge Planning Updated by [id number]: Alex Cavazos on 10/04/18 7:[address] Patient Name: HARRIS RAYO Encounter No: [id number] : 1950 Primary Insurance: NOVASYSMCR Anticipated DC Date: 09-24-2018 Planned Disposition: Jail Facility External Planned Provider: : [facility], MEDICARE REHAB BED DCP follow-up note: CM FAXED REFERRAL TO [facility], . CM WAITING ADMISSION DETERMINATION FROM [facility]. CM WILL FOLLOW UP WITH LILI VIA PHONE TODAY, 10-04-18. CAMILLE Peña DCP- Discharge Planning Updated by [id number]: Alex Cavazos on 10/03/18 4:[address] Patient Name: HARRIS RAYO Encounter No: [id number] : 1950 Primary Insurance: NOVASYSMCR Anticipated DC Date: 09-24-2018 Planned Disposition: Jail Facility External Planned Provider: [facility], MEDICARE REHAB BED DCP follow-up note: CM CALLED AND SPOKE TO EDDIE OF [facility] WHO REPORTS THAT PT WAS EVALUATED AND THE NURSE REPORTS PT IS NOT APPROPRIATE FOR REHAB SERVICES AND IS APPROPRIATE FOR [facility]ARE. THEY WILL NOT ACCEPT AND REPORTED THAT THE SCREENER NURSE WILL ATTEMPT TO SECURE PLACEMENT IN ANOTHER FACILITY AND WILL CALL CM. CM FAXED REFERRAL TO [facility], . CM WILL FOLLOW UP WITH LINDEN TOMORROW, 10-04-18. CAMILLE Peña MANAGEMENT DCP- Discharge Planning Updated by [email or web address]: Alex Cavazos on 10/03/18 6:[address] Patient Name: HARRIS RAYO Encounter No: [id number] : 1950 Primary Insurance: NOVASYSMCR Anticipated DC Date: 09-24-2018 Planned Disposition: Jail Facility External Planned Provider: [facility], MEDICARE REHAB BED DCP follow-up note: CM FAXED HOSPITAL UPDATE TO [facility] AT [phone]. CM CONTINUES TO WAIT FOR ADMISSION DETERMINTION AND INSURANCE AUTHORIZATION FOR REHAB SERVICES AT [facility]. CAMILLE Peña MANGEMENT DCP- Discharge Planning Updated by [id number]: Alex Cavazos on 10/02/18 4:[address] Patient Name: HARRIS RAYO Encounter No: [id number] : 1950 Primary Insurance: NOVASYSMCR Anticipated DC Date: 09-24-2018 Planned Disposition: Jail Facility External Planned Provider: [facility], MEDICARE REHAB BED DCP follow-up note: [facility] NURSE HERE TO EVALUATE PT FOR REHAB ADMISSION. CM CONTINUES TO WAIT FOR ADMISSION DETERMINTION AND INSURANCE AUTHORIZATION FOR REHAB SERVICES AT [facility]. CAMILLE Peña MANGEMENT DCP- Discharge Planning Updated by [email or web address]: Alex Cavazos on 10/01/18 7:[address] Patient Name: HARRIS RAYO Encounter No: [id number] : 1950 Primary Insurance: NOVASYSMCR Anticipated DC Date: 09-24-2018 Planned Disposition: Jail Facility External Planned Provider: [facility], MEDICARE REHAB BED DCP follow-up note: CM FAXED REFERRAL [facility] AT [phone]. CM WAITING ADMISSION DETERMINATION AND INSURANCE DETERMINATION FOR REHAB AT [facility]. Alex Cavazos CASE MANAGEMENT DCP- Discharge Planning Updated by [id number]: Alex Cavazos on 09/27/18 3:[address] Patient Name: HARRIS RAYO Encounter No: [id number] : 1950 Primary Insurance: NOVASYSMCR Anticipated DC Date: 09-24-2018 Planned Disposition: Jail Facility External Planned Provider: [facility], MEDICARE REHAB BED DCP follow-up note: CM SPOKE TO PT AND SPOUSE IN ROOM REGARDING REHAB NEEDS. PT AND SPOUSE AGREE THAT PT NEEDS REHAB, PT'S SPOUSE CHOSE [facility] WITH SECOND CHOICE OF [facility]. CHOICE SIGNED. PT IN AGREEMENT. IMPORTANT MESSAGE FROM MEDICARE PROVIDED AND EXPLAINED. CM CALLED [facility], , SPOKE TO JACOB WHO VERIFIED BEING IN PT'S INSURANCE NETWORK AND WILL REVIEW FOR ADMISSION TO REHAB. CM FAXED REFERRAL TO [facility] AT [phone]. CM WAITING ADMISSION DETERMINATION AND INSURANCE DETERMINATION FOR REHAB AT [facility]. Alex Cavazos CASE MANAGEMENT DCP- Discharge Planning Updated by [id number]: Alex Cavazos on 09/25/18 9:[address] Patient Name: HARRIS RAYO Encounter No: [id number] : 1950 Primary Insurance: NOVASYFetchmobCR Anticipated DC Date: 09-24-2018 Planned Disposition: fdc facility External Planned Provider: to be determined DCP follow-up note: CM RECEIVED CALL FROM AURORA TAPAN OF [employer], . AURORA IS PT'S INSURANCE FURNITURE REPRODUCER AND WILL BE FOLLOWING UP WITH PT POST DISCHARGE FOR CASE MANAGEMENT IF NEEDED. CM INFORMED AURORA OF CM'S CONVERSTATION WITH PT'S SPOUSE REGARDING POSSIBLE NEED OF NURSING HOME REHAB AT DISCHARGE. PT'S SPOUSE REPORTED INABILITY TO CARE FOR PT AT HOME IN WEAKENED CONDITION. CM WAITING PT AND SPOUSE TO DISCUSS NURSING HOME REHAB OPTIONS AND MAKE A DECISION. Aelx Cavazos CASE MANAGEMENT DCP- Discharge Planning Updated by [id number]: Alex Cavazos on 09/24/18 4:[address] Patient Name: HARRIS RAYO Encounter No: [id number] : 1950 Primary Insurance: NOVASYSMCR Anticipated DC Date: 09-24-2018 Planned Disposition: NURSING HOME FACILITY External Planned Provider: TO BE DETERMINED DCP follow-up note: CM MET WITH PT AND SPOUSE IN ROOM TO DISCUSS DISCHARGE PLANNING AND NEEDS. CM UNABLE TO AWAKEN PT. PT'S SPOUSE REPORTS THE DOCTOR GAVE PT A SEDATIVE. CM DISCUSSED DISCHARGE PLANNING AND THERAPY NOTES TO DATE. PT'S SPOUSE REPORTS SHE IS NOT ABLE TO CARE FOR PT IN HIS WEAKENED STATE AT HOME AND PT WILL NEED REHAB. CM DISCUSSED AVAILABILITY OF INPATIENT AND NURSING HOME REHAB. PT'S SPOUSE WANTS TO DISCUSS OPTIONS WITH PT WHEN HE IS AWAKE. CM LEFT PT'S SPOUSE WITH HOME HEALTH PROVIDER LISTING FOR [place], CHOICE FORM AND CM CONTACT INFORMATION. PT'S SPOUSE REPORTS INABILITY TO CARE FOR PT AT HOME IN WEAKENED CONDITION. CM WAITING PT AND SPOUSE TO DISCUSS NURSING HOME REHAB OPTIONS AND MAKE A DECISION. Alex Cavazos CASE MANAGEMENT DCP- Discharge Planning Updated by [id number]: Radha Love on 09/21/18 1:[address] Patient Name: HARRIS RAYO Admission Status: ER Accout number: [id number] Admission Date: 09-19-2018 : 1950 Admission Diagnosis:WEAKNESS Attending: MILAGRO FORTE Current LOS: 2 Anticipated DC Date: 09-24-2018 Planned Disposition: Home with Home Health Primary Insurance: Ante Up Discharge Planning Comments: DC PLAN: Rehab vs Home with and Home Health. DC NEEDS: PT/OT Eval to see if he will participate. CM met with patient to complete initial dc planning assessment. Patient not answering questions so CM called his ePg. CM educated patient and Peg on the CM role and verbal consent given by patient's to complete assessment. CM verified patient's address, phone number, and emergency contact phone numbers. Patient lives at home with her. She reports for the past year and a half the patient has basically sat in his recliner 95 % of the time with 75% sleeping. She reports he gets up to go to the bathroom or to the refrigerator. She reports he basically crawls around when he does get out of the chair. Cm asked If he was able to get dressed or take his clothes off and she said he just doesn't wear clothes. He sits around naked (which is what he has done for a long time). At discharge she feel he would benefit from rehab but she is not sure he will agree to go. Patient shook his head yes when I asked him, however CM is not sure he will participate in therapy as he has been refusing most thing this far during his stay. Order received for OT/PT finn to see if he will participate. If he will not participate in therapy neither his insurance or a rehab will accept him. He is a managed medicare and will require authorization. Cm told the if he did not participate than he would have to return home and we could try home Health. She does not have a preference on HH and she cant remember who they have used in the past. Patient's reports she will transport him home at time of discharge if he is able to get in the car. If not he may require ambulance transport home. CM will continue to follow and will assist as needed with dc plans/needs. Meal Cooker: Radha Love RN, [facility] DCPIA - Discharge Planning Initial Assessment Updated by [id number]: Radha Love on 09/21/18 2:45 pm * How many steps to enter\exit or inside your home? * PCP Dr. Scott * [facility] [address] * Preadmission Environment Home with Family * ADLs Partial Dependent * Partial ADLs (Assistance needed) Bathing Dressing Medication Management Toileting * Equipment Bedside Commode Cane * List name and contact numbers for known caregivers / representatives who currently or will assist patient after discharge: Peg Rayo - - [phone] * Verbal permission to speak to the caregivers and representatives has been obtained from the patient. Yes * Community resources currently utilized None * Additional services required to return to the preadmission environment? Yes * Can the patient safely return to the preadmission environment? Yes * Has this patient been hospitalized within the prior 30 days at any hospital? No Coverage Notice Reviewer: [id number] Cavazos Notice Issued Date-Time: 09/27/2018 9:05 Notice Type: IM Discharge Notice Notice Delivered To: Family Member Relationship to Patient: Spouse Travelift Operator Name: LUPE RAYO Delivery Method: HAND - Hand Delivered Shamika Days: Prior Verbal Notification: Recipient Understood Notice: Yes Recipient Signature: Yes Med Rec Note Co-signed by Attending: Coverage Notice Comment: Reviewer: LEON Cavazos Notice Issued Date-Time: 09/27/2018 9:05 Notice Type: Patient Choice Letter Notice Delivered To: Family Member Relationship to Patient: Spouse Travelift Operator Name: LUPE RAYO Delivery Method: HAND - Hand Delivered Shamika Days: Prior Verbal Notification: Recipient Understood Notice: Yes Recipient Signature: Yes Med Rec Note Co-signed by Attending: Coverage Notice Comment: [facility] OR SECOND CHOICE [facility] FOR REHAB Last DP export: 10/04/18 7:59 a Patient Name: HARRIS RAYO Page [id number] at 0830 All edits/amendments must be made on the electronic document DICTATION DATE: 10/05/18828 LAMINATION OPERATOR: [email or web address] 10/05/18828 RPT#: [id number] DC DATE: STATUS: ADM IN [facility] [address] [place] [address] END OF REPORT
[2018-10-05 11:00] VITALS: BP 141/86
--- NOTE | 2018-10-05 11:32 | NUR ---
OT NOTE: PT REMAINS VERY QUIET. ASKED PT IF HE WAS ABLE TO HEAR ME, AND TO PLEASE VERBALLY RESPOND..PT AGREED TO DO SO AND DID SOMEWHAT BETTER. REMAINS CONFUSED AND DISORIENTED TO PLACE AND TIME. PT ABLE TO PERFORM BED MOB WITH MOD ASSIST; EOB SITTING WITH CGA; TRANSFER FROM BED TO CHAIR WITH MAX ASSIST; FEEDING WITH SET UP OF TRAY; ABLE TO WASH FACE AND HANDS AND ARMS WITH CLOTH AND SET UP. YARON BALBUENA, OTR/L
--- NOTE | 2018-10-05 14:37 | NUR ---
PATIENT IS CONTINUALLY HAVING DIARREAH , AND WE HAVE CHANGED HIM 4 TIMES IN THE LAST HOUR AND A HALF.
--- NOTE | 2018-10-05 14:46 | NUR ---
OT NOTE: PT COMPLETED BED MOB AND FUNCTIONAL TRANSFER WITH DIONTE Byers. PT COMPLETED HYGIENE TASKS WITH DIONTE Byers. THANK YOU,CARO HERNANDEZ
[2018-10-05 16:23] VITALS: BP 126/82
[2018-10-05 20:00] VITALS: BP 110/51; BP 130/73
--- NOTE | 2018-10-05 20:05 | NUR ---
REPORT RECIEVED AND ROUNDING COMPLETE. PATIENT LAYING IN BED WITH HOB ELEVATED. PATIENT DOES NOT HAVE A PIV. PATIENT IS NOT SHOWING ANY S/SX OF DISTRESS AT THIS TIME. PATIENT STATES HE HAS NO NEEDS AT THIS TIME. CALL LIGHT WITHIN REACH AND BED IN LOWEST LOCKED POSITION.
[2018-10-06] VITALS: BP 116/76
--- NOTE | 2018-10-06 02:38 | NUR ---
I have reviewed this patient and I concur with the Shift Assessment completed by the Licensed Practical Nurse today this shift.
--- NOTE | 2018-10-06 03:15 | NUR ---
IMAGE SCIENTIST CALLED ME INTO ROOM PATIENT WAS SITTING UP IN BED COMPLETELY NAKED, HE HAD CUT THE WILKINS CATH LINE WITH HE SAID A BUTTER KNIVE. WILKINS BAG SITTING ON THE FLOOR AND THE TUBING WAS STIVCKING OUT OF HIS PENIS WITH URINE/FLUID COMING OUT OF THE END. LIGHTLY PULLED THE CATH OUT. ALL PARTS ACOUNTED FOR. PATIENT STATES HE CUT IT OFF BECAUSE HE WANTED IT OUT SO HE COULD "PLAY WITH HIMSELF" PATIENT THEN STATES HE DID NOT WANT ANOTHER PLACED. I ASSISTED IMAGE SCIENTIST IN CLEANING PATIENT UP AND REDRESSING AND INSTRUCTING HIM ON HOW HE HAS TO USE HIS URENAL SO WE KNOW WHEATHER OR NOT HE CAN GO ON HIS OWN. PATIENT NOW SITTING UP IN BED WATCH TV. CALL LIGHT WITHIN REACH AND BED I LOWEST LOCKED POSITION.
[2018-10-06 04:00] VITALS: BP 144/79
[2018-10-06 05:09] LABS: ANION GAP 6.9 mmol/L (8-16); CALCIUM 9.3 mg/dL (8.5-10.1); CARBON DIOXIDE 34.2 mmol/L (21.0-32.0); CREATININE - SERUM 1.1 mg/dL (0.6-1.3); POTASSIUM - SERUM 4.1 mmol/L (3.5-5.1)
[2018-10-06 05:13] LABS: BASOPHILS 0.8 % (0-2); EOSINOPHILS 5.4 % (0-7); HEMATOCRIT 43.1 % (42.0-54.0); HEMOGLOBIN 14.2 g/dL (13.5-17.5); IMMATURE GRANULOCYTES 0.2 % (0-5); LYMPHOCYTES 13.6 % (15-50); MCH 25.1 pg (26.0-34.0); MCHC 32.9 g/dL (31.0-37.0); MCV 76.1 fL (80.0-100.0); PLATELET COUNT 219 10x3/uL (130-400); RBC 5.66 10x6/uL (4.20-6.10); RDW 21.2 % (11.5-14.5); WBC 5.2 10x3/uL (4.8-10.8)
--- NOTE | 2018-10-06 08:03 | NUR ---
PT SITTING UP IN BED. REFUSE TO HAVE BP TAKEN. NO S/S OF ACUTE DISTRESS. CL IN PLACE.
[2018-10-06 13:08] VITALS: BP 114/65
--- NOTE | 2018-10-06 17:00 | NUR ---
PT RESTING IN BED. NO S/S OF ACUTE DISTRESS. DAVID ON. CL IN PLACE.
[2018-10-06 17:06] VITALS: BP 113/68
--- NOTE | 2018-10-06 17:09 | NUR ---
PATIENT CARE ASSUMED. PATIENT LAYING IN BED WITH EYES CLOSED AND BREATHING EVENLY . WILL CONTINUE WITH PLAN OF CARE. SR UP X2 BED IN LOW POSITION AND CALL LIGHT IN REACH.
--- NOTE | 2018-10-06 19:11 | NUR ---
RECIEVED SITTING UP ON SIDE OF BED. REFUSING TO LAY DOWN. BED ALARM IN PLACE. BUTTOCKS EXCORIETED. ALERET AND ORIENTED TO PERSON AND PLACE ONLY. LEFT BKA. BRUISING TO SHANNON ARMS. NO IV ACCESS. PT REFUSES. LUNG SOUNDS CLEAR BILATERALLY. [id number]. DENIES ANY NEEDS.
[2018-10-07] VITALS: BP 146/84
[2018-10-07 04:00] VITALS: BP 121/83
[2018-10-07 08:42] VITALS: BP 119/74
[2018-10-07 12:59] VITALS: BP 109/61
[2018-10-07 17:22] VITALS: BP 123/72
--- NOTE | 2018-10-07 19:25 | NUR ---
RECIEVED SITTING UP ON SIDE OF BED. ALERT AND ORIENTED X2. REQUIRES EXTENSIVE ASSIST TO STAND. HAS LEFT LEG BKA. NO IV ACCESS D/T REFUSAL. BRUISING TO BOTH ARM. BUTTOCK EXCORIATED. DENIES ANY NEEDS AT THIS TIME AND NO S/S OF DISTRESS OBSERVED.
[2018-10-07 20:00] VITALS: BP 136/76
--- NOTE | 2018-10-07 21:54 | NUR ---
BEDBATH GIVEN THIS SHIFT.
[2018-10-08] VITALS: BP 126/82
--- NOTE | 2018-10-08 03:11 | NUR ---
UP IN W/C PROPELLING SELF AROUND THE UNIT. WENT INTO ANOTHER PT ROOM. WHEN ATTEMPTING TO REDIRECT OUT OF THE ROOM AND INTO THE HALLWAY BECAME AGGITATED. ATIVAN GIVEN PER ORDERS. LAYINGH IN BED WITH EYES OPEN AT THIS TIME.
--- NOTE | 2018-10-08 03:33 | NUR ---
RESTING IN BED WITH EYES CLOSED AT THIS TIME. NO S/S OF DISTRESS OBSSERVED.
[2018-10-08 04:00] VITALS: BP 154/93
--- NOTE | 2018-10-08 07:30 | NUR ---
PT RESTING IN BED WITH EYES CLOSED. BREATHING EVEN AND NONLABORED. NO S/S OF DISTRESS NOTED. WILL CONTINUE TO MONITOR.
--- NOTE | 2018-10-08 08:08 | MORECARE ---
CASE MANAGEMENT DISCHARGE SUMMARY PATIENT: HARRIS RAYO UNIT: [id number] ADM DATE: 09/19/18 AGE: 68 : 52 SEX: M ROOM/BED: D.2104 AUTHOR: ALVA,DOC PHYSICIAN: REFERRING PHYSICIAN: MILAGRO FORTE MD DATE OF SERVICE: 10/08/18 Discharge Plan Patient Name: HARRIS RAYO Facility: [facility]:[place] : 1950 Planned Disposition: Long Term Facility Anticipated Discharge Date: 10/05/18 Discharge Date: Expected LOS: 16 Initial Reviewer: [id number] Initial Review Date: 09/19/2018 Generated: 10/08/18 9:08 am Comments DCP- Discharge Planning Updated by [id number]: Alex Cavazos on 10/08/18 7:[address] Patient Name: HARRIS RAYO Encounter No: [id number] : 1950 Primary Insurance: NOVASYSMCR Anticipated DC Date: 10-05-2018 Planned Disposition: Long Term Facility External Planned Provider: [facility], MEDICARE REHAB BED DISCHARGE PLANNING NOTE: CM FAXED HOSPITAL UPDATE TO [facility] AT [phone]. JORGE WAITING INSURANCE AUTHORIZATION FOR REHAB SERVICES AT [facility]. CAMILLE Peña DCP- Discharge Planning Updated by [id number]: Alex Cavazos on 10/05/18 7:[address] Patient Name: HARRIS RAYO Encounter No: [id number] : 1950 Primary Insurance: NOVASYSMCR Anticipated DC Date: 09-24-2018 Planned Disposition: Long Term Facility External Planned Provider: [facility], MEDICARE REHAB BED DCP follow-up note: [facility], MEDICARE REHAB BED DCP follow-up note: CM CALLED AND SPOKE TO [facility], , WHO INFORMED CM THAT THEY WILL ACCEPT AND ARE WAITING INSURANCE AUTHORZIATION FOR REHAB SERVICES. CM FAXED THE REQUESTED INFORMATION TO [facility] AT [phone]. CM UPDATED CEDRICK VELASCO CM WAITING INSURANCE AUTHORIZATION FOR REHAB SERVICES AT [facility]. CAMILLE PeñaEMENT DCP- Discharge Planning Updated by [id number]: Alex Cavazos on 10/04/18 7:[address] Patient Name: HARRIS RAYO Encounter No: [id number] : 1950 Primary Insurance: NOVASYSMCR Anticipated DC Date: 09-24-2018 Planned Disposition: Long Term Facility External Planned Provider: [facility], MEDICARE REHAB BED DCP follow-up note: CM RECEIVED CALL FROM PALAK OF [facility], , WHO INFORMED CM THAT CURT REQUESTED DOCTOR DOCUMENTATION OF NEED FOR SNF AND SHE CANNOT FIND THE PT EVALUATION IN THE REFERRAL INFORMATION. CM FAXED THE REQUESTED INFORMATION TO [facility] AT [phone]. CM WAITING ADMISSION DETERMINATION WELL INSURANCE AUTHORIZATION FOR REHAB SERVICES AT [facility]. Alex Cavazos, CASE MANGEMENT DCP- Discharge Planning Updated by [id number]: Alex Cavazos on 10/04/18 7:[address] Patient Name: HARRIS RAYO Encounter No: [id number] : 1950 Primary Insurance: NOVASYSMCR Anticipated DC Date: 09-24-2018 Planned Disposition: Long Term Facility External Planned Provider: : [facility], MEDICARE REHAB BED DCP follow-up note: CM FAXED REFERRAL TO [facility], . CM WAITING ADMISSION DETERMINATION FROM [facility]. CM WILL FOLLOW UP WITH LINDEN VIA PHONE TODAY, 10-04-18. Alex Cavazos, CASE MANAGEMENT DCP- Discharge Planning Updated by [id number]: Alex Cavazos on 10/03/18 4:[address] Patient Name: HARRIS RAYO Encounter No: [id number] : 1950 Primary Insurance: NOVASYSMCR Anticipated DC Date: 09-24-2018 Planned Disposition: Long Term Facility External Planned Provider: [facility], MEDICARE REHAB BED DCP follow-up note: CM [facility] AND [facility]PO[facility] WHO REPORTS THAT PT WAS EVALUATED AND THE NURSE REPORTS PT IS NOT APPROPRIATE FOR REHAB SERVICES AND IS APPROPRIATE FOR INDUSTRY ANALYST CARE. THEY WILL NOT ACCEPT AND REPORTED THAT THE SCREENER NURSE WILL ATTEMPT TO SECURE PLACEMENT IN ANOTHER FACILITY AND WILL CALL CM. CM FAXED REFERRAL TO [facility], . CM WILL FOLLOW UP WITH LILI TOMORROW, 10-04-18. Alex Cavazos CASE MANAGEMENT DCP- Discharge Planning Updated by [id number]: Alex Cavazos on 10/03/18 6:[address] Patient Name: HARRIS RAYO Encounter No: [id number] : 1950 Primary Insurance: NOVASYSMCR Anticipated DC Date: 09-24-2018 Planned Disposition: Long Term Facility External Planned Provider: [facility], MEDICARE REHAB BED DCP follow-up note: CM FAXED HOSPITAL UPDATE TO [facility] AT [phone]. CM CONTINUES TO WAIT FOR ADMISSION DETERMINTION AND INSURANCE AUTHORIZATION FOR REHAB SERVICES AT [facility]. CAMILLE Peña MANGEMENT DCP- Discharge Planning Updated by [id number]: Alex Cavazos on 10/02/18 4:[address] Patient Name: HARRIS RAYO Encounter No: [id number] : 1950 Primary Insurance: NOVASYSMCR Anticipated DC Date: 09-24-2018 Planned Disposition: Long Term Facility External Planned Provider: [facility], MEDICARE REHAB BED DCP follow-up note: [facility] NURSE HERE TO EVALUATE PT FOR REHAB ADMISSION. CM CONTINUES TO WAIT FOR ADMISSION DETERMINTION AND INSURANCE AUTHORIZATION FOR REHAB SERVICES AT [facility]. CAMILLE Peña MANGCHAR DCP- Discharge Planning Updated by [id number]: Alex Cavazos on 10/01/18 7:[address] Patient Name: HARRIS RAYO Encounter No: [id number] : 1950 Primary Insurance: NOVASYSMCR Anticipated DC Date: 09-24-2018 Planned Disposition: Long Term Facility External Planned Provider: [facility], MEDICARE REHAB BED DCP follow-up note: CM FAXED REFERRAL [facility] AT [phone]. CM WAITING ADMISSION DETERMINATION AND INSURANCE DETERMINATION FOR REHAB AT [facility]. Alex Cavazos CASE MANAGEMENT DCP- Discharge Planning Updated by [id number]: Alex Cavazos on 09/27/18 3:[address] Patient Name: HARRIS RAYO Encounter No: [id number] : 1950 Primary Insurance: NOVASYSMCR Anticipated DC Date: 09-24-2018 Planned Disposition: Long Term Facility External Planned Provider[facility], [facility]HAB [facility] DCP follow-up note: CM SPOKE TO PT AND SPOUSE IN ROOM REGARDING REHAB NEEDS. PT AND SPOUSE AGREE THAT PT NEEDS REHAB, PT'S SPOUSE CHOSE [facility] WITH SECOND CHOICE OF [facility]. CHOICE SIGNED. PT IN AGREEMENT. IMPORTANT MESSAGE FROM MEDICARE PROVIDED AND EXPLAINED. CM CALLED [facility], , SPOKE TO JACOB WHO VERIFIED BEING IN PT'S INSURANCE NETWORK AND WILL REVIEW FOR ADMISSION TO REHAB. CM FAXED REFERRAL TO [facility] AT [phone]. CM WAITING ADMISSION DETERMINATION AND INSURANCE DETERMINATION FOR REHAB AT [facility]. Alex Cavazos CASE MANAGEMENT DCP- Discharge Planning Updated by [id number]: Alex Cavazos on 09/25/18 9:[address] Patient Name: HARRIS RAYO Encounter No: [id number] : 1950 Primary Insurance: NOVASYSMCR Anticipated DC Date: 09-24-2018 Planned Disposition: detention facility External Planned Provider: to be determined DCP follow-up note: CM RECEIVED CALL FROM AURORA PHELAN OF [employer], . AURORA IS PT'S INSURANCE SUCTION PLATE CARRIER CLEANER AND WILL BE FOLLOWING UP WITH PT POST DISCHARGE FOR CASE MANAGEMENT IF NEEDED. CM INFORMED AURORA OF CM'S CONVERSTATION WITH PT'S SPOUSE REGARDING POSSIBLE NEED OF HALFWAY REHAB AT DISCHARGE. PT'S SPOUSE REPORTED INABILITY TO CARE FOR PT AT HOME IN WEAKENED CONDITION. CM WAITING PT AND SPOUSE TO DISCUSS HALFWAY REHAB OPTIONS AND MAKE A DECISION. CAMILLE Peña DCP- Discharge Planning Updated by [email or web address]: Alex Cavazos on 09/24/18 4:[address] Patient Name: HARRIS RAYO Encounter No: [id number] : 1950 Primary Insurance: NOVASYSMCR Anticipated DC Date: 09-24-2018 Planned Disposition: HALFWAY FACILITY External Planned Provider: TO BE DETERMINED DCP follow-up note: CM MET WITH PT AND SPOUSE IN ROOM TO DISCUSS DISCHARGE PLANNING AND NEEDS. CM UNABLE TO AWAKEN PT. PT'S SPOUSE REPORTS THE DOCTOR GAVE PT A SEDATIVE. CM DISCUSSED DISCHARGE PLANNING AND THERAPY NOTES TO DATE. PT'S SPOUSE REPORTS SHE IS NOT ABLE TO CARE FOR PT IN HIS WEAKENED STATE AT HOME AND PT WILL NEED REHAB. CM DISCUSSED AVAILABILITY OF INPATIENT AND HALFWAY REHAB. PT'S SPOUSE WANTS TO DISCUSS OPTIONS WITH PT WHEN HE IS AWAKE. CM LEFT PT'S SPOUSE WITH HOME HEALTH PROVIDER LISTING FOR [place], CHOICE FORM AND CM CONTACT INFORMATION. PT'S SPOUSE REPORTS INABILITY TO CARE FOR PT AT HOME IN WEAKENED CONDITION. CM WAITING PT AND SPOUSE TO DISCUSS HALFWAY REHAB OPTIONS AND MAKE A DECISION. Alex Cavazos, CASE MANAGEMENT DCP- Discharge Planning Updated by [id number]: Radha Love on 09/21/18 1:[address] Patient Name: HARRIS RAYO Admission Status: ER Accout number: [id number] Admission Date: 09-19-2018 : 1950 Admission Diagnosis:WEAKNESS Attending: MILAGRO FORTE Current LOS: 2 Anticipated DC Date: 09-24-2018 Planned Disposition: Home with Home Health Primary Insurance: [employer] Discharge Planning Comments: DC PLAN: Rehab vs Home with and Home Health. DC NEEDS: PT/OT Eval to see if he will participate. CM met with patient to complete initial dc planning assessment. Patient not answering questions so CM called his Peg. CM educated patient and Peg on the CM role and verbal consent given by patient's to complete assessment. CM verified patient's address, phone number, and emergency contact phone numbers. Patient lives at home with her. She reports for the past year and a half the patient has basically sat in his recliner 95 % of the time with 75% sleeping. She reports he gets up to go to the bathroom or to the refrigerator. She reports he basically crawls around when he does get out of the chair. Cm asked If he was able to get dressed or take his clothes off and she said he just doesn't wear clothes. He sits around naked (which is what he has done for a long time). At discharge she feel he would benefit from rehab but she is not sure he will agree to go. Patient shook his head yes when I asked him, however CM is not sure he will participate in therapy as he has been refusing most thing this far during his stay. Order received for OT/PT eval to see if he will participate. If he will not participate in therapy neither his insurance or a rehab will accept him. He is a managed medicare and will require authorization. Cm told the if he did not participate than he would have to return home and we could try home Health. She does not have a preference on HH and she cant remember who they have used in the past. Patient's reports she will transport him home at time of discharge if he is able to get in the car. If not he may require ambulance transport home. CM will continue to follow and will assist as needed with dc plans/needs. Stemhole Borer: Radha Love RN, [facility] DCPIA - Discharge Planning Initial Assessment Updated by [id number]: Radha Love on 09/21/18 2:45 pm * How many steps to enter\exit or inside your home? * PCP Dr. Scott * [facility] [address] * Preadmission Environment Home with Family * ADLs Partial Dependent * Partial ADLs (Assistance needed) Bathing Dressing Medication Management Toileting * Equipment Bedside Commode Cane * List name and contact numbers for known caregivers / representatives who currently or will assist patient after discharge: Peg Rayo - - [phone] * Verbal permission to speak to the caregivers and representatives has been obtained from the patient. Yes * Community resources currently utilized None * Additional services required to return to the preadmission environment? Yes * Can the patient safely return to the preadmission environment? Yes * Has this patient been hospitalized within the prior 30 days at any hospital? No Coverage Notice Reviewer: [id number] Jeanmarie Cavazos Notice Issued Date-Time: 09/27/2018 9:05 Notice Type: IM Discharge Notice Notice Delivered To: Family Member Relationship to Patient: Spouse Salon Sales Consultant Name: LUPE RAYO Delivery Method: HAND - Hand Delivered Shamika Days: Prior Verbal Notification: Recipient Understood Notice: Yes Recipient Signature: Yes Med Rec Note Co-signed by Attending: Coverage Notice Comment: Reviewer: [id number] Jeanmarie Cavazos Notice Issued Date-Time: 09/27/2018 9:05 Notice Type: Patient Choice Letter Notice Delivered To: Family Member Relationship to Patient: Spouse Salon Sales Consultant Name: LUPE RAYO Delivery Method: HAND - Hand Delivered Shamika Days: Prior Verbal Notification: Recipient Understood Notice: Yes Recipient Signature: Yes Med Rec Note Co-signed by Attending: Coverage Notice Comment: [facility] OR SECOND CHOICE [facility] FOR REHAB Last DP export: 10/05/18 7:29 a Patient Name: HARRIS RAYO Page [id number] at 0808 All edits/amendments must be made on the electronic document DICTATION DATE: 10/08/18807 [employer] INSPECTOR: [email or web address] 10/08/18807 RPT#: [id number] DC DATE: STATUS: ADM IN [facility] [address] [place] [address] END OF REPORT
[2018-10-08 08:33] VITALS: BP 149/79
--- NOTE | 2018-10-08 11:27 | NUR ---
[employer] RECOMMENDED FOR APPLICATION ON RIGHT HIP STAGE 2 PRESSURE INJURY AND LEFT BUTTOCK STAGE 2 PRESSUE INJURY. RIGHT HIP 3CM X 3CM (HEALING) LEFT BUTTOCK 2CM X 0.5CM (HEALING). PT IS POSITIONED ON HIS LEFT SIDE AND IS BEING REPOSITIONED Q 2 HOURS. WOUND CARE CONTINUES TO MONITOR.
[2018-10-08] MEDS ORDERED: HYDRALAZINE HCL50 MG PO (11:52)
[2018-10-08] MEDS ORDERED: NORVASC5 MG PO (11:52)
[2018-10-08] MEDS ORDERED: Cozaar PO (11:53)
[2018-10-08] MEDS ORDERED: METOPROLOL TART50 MG PO (11:53)
[2018-10-08] MEDS ORDERED: CATAPRES TTS-3 TRANSDERM (11:54)
[2018-10-08 11:56] VITALS: BP 141/81
--- NOTE | 2018-10-08 13:27 | MORECARE ---
CASE MANAGEMENT DISCHARGE SUMMARY PATIENT: HARRIS RAYO UNIT: [id number] ADM DATE: 09/19/18 AGE: 68 : 52 SEX: M ROOM/BED: D.2104 AUTHOR: ALVA,DOC PHYSICIAN: REFERRING PHYSICIAN: MILAGRO FORTE MD DATE OF SERVICE: 10/08/18 Discharge Plan Patient Name: HARRIS RAYO Facility: [facility]:[place] : 1950 Planned Disposition: Nursing Home Facility Anticipated Discharge Date: 10/08/18 Discharge Date: Expected LOS: 19 Initial Reviewer: [id number] Initial Review Date: 09/19/2018 Generated: 10/08/18 2:26 pm Comments DCP- Discharge Planning Updated by [email or web address]: Alex Cavazos on 10/08/18 7:[address] Patient Name: HARRIS RAYO Encounter No: [id number] : 1950 Primary Insurance: NOVASYSMCR Anticipated DC Date: 10-05-2018 Planned Disposition: Nursing Home Facility External Planned Provider: [facility], MEDICARE REHAB BED DISCHARGE PLANNING NOTE: CM FAXED HOSPITAL UPDATE TO [facility] AT [phone]. JORGE WAITING INSURANCE AUTHORIZATION FOR REHAB SERVICES AT [facility]. CAMILLE Peña DCP- Discharge Planning Updated by [id number]: Alex Cavazos on 10/05/18 7:[address] Patient Name: HARRIS RAYO Encounter No: [id number] : 1950 Primary Insurance: NOVASYSMCR Anticipated DC Date: 09-24-2018 Planned Disposition: Nursing Home Facility External Planned Provider: [facility], MEDICARE REHAB BED DCP follow-up note: [facility], MEDICARE REHAB BED DCP follow-up note: CM CALLED AND SPOKE TO [facility], , WHO INFORMED CM THAT THEY WILL ACCEPT AND ARE WAITING INSURANCE AUTHORZIATION FOR REHAB SERVICES. CM FAXED THE REQUESTED INFORMATION TO [facility] AT [phone]. CM UPDATED CEDRICK VELASCO CM WAITING INSURANCE AUTHORIZATION FOR REHAB SERVICES AT [facility]. CAMILLE PeñaEMENT DCP- Discharge Planning Updated by [id number]: Alex Cavazos on 10/04/18 7:[address] Patient Name: HARRIS RAYO Encounter No: [id number] : 1950 Primary Insurance: NOVASYSMCR Anticipated DC Date: 09-24-2018 Planned Disposition: Nursing Home Facility External Planned Provider: [facility], MEDICARE REHAB BED DCP follow-up note: CM RECEIVED CALL FROM PALAK OF [facility], , WHO INFORMED CM THAT CURT REQUESTED DOCTOR DOCUMENTATION OF NEED FOR SNF AND SHE CANNOT FIND THE PT EVALUATION IN THE REFERRAL INFORMATION. CM FAXED THE REQUESTED INFORMATION TO [facility] AT [phone]. CM WAITING ADMISSION DETERMINATION WELL INSURANCE AUTHORIZATION FOR REHAB SERVICES AT [facility]. Alex Cavazos, CASE MANGEMENT DCP- Discharge Planning Updated by [id number]: Alex Cavazos on 10/04/18 7:[address] Patient Name: HARRIS RAYO Encounter No: [id number] : 1950 Primary Insurance: NOVASYSMCR Anticipated DC Date: 09-24-2018 Planned Disposition: Nursing Home Facility External Planned Provider: : [facility], MEDICARE REHAB BED DCP follow-up note: CM FAXED REFERRAL TO [facility], . CM WAITING ADMISSION DETERMINATION FROM [facility]. CM WILL FOLLOW UP WITH LINDEN VIA PHONE TODAY, 10-04-18. Alex Cavazos, CASE MANAGEMENT DCP- Discharge Planning Updated by [email or web address]: Alex Cavazos on 10/03/18 4:[address] Patient Name: HARRIS RAYO Encounter No: [id number] : 1950 Primary Insurance: NOVASYSMCR Anticipated DC Date: 09-24-2018 Planned Disposition: Nursing Home Facility External Planned Provider: [facility], MEDICARE REHAB BED DCP follow-up note: CM CALLED AND SPOKE TO [facility] WHO REPORTS THAT PT WAS EVALUATED AND THE NURSE REPORTS PT IS NOT APPROPRIATE FOR REHAB SERVICES AND IS APPROPRIATE FOR PROVIDER RELATIONS SPECIALIST CARE. THEY WILL NOT ACCEPT AND REPORTED THAT THE SCREENER NURSE WILL ATTEMPT TO SECURE PLACEMENT IN ANOTHER FACILITY AND WILL CALL CM. CM FAXED REFERRAL TO [facility], . CM WILL FOLLOW UP WITH LILI TOMORROW, 10-04-18. Alex Cavazos CASE MANAGEMENT DCP- Discharge Planning Updated by [id number]: Alex Cavazos on 10/03/18 6:[address] Patient Name: HARRIS RAYO Encounter No: [id number] : 1950 Primary Insurance: NOVASYSMCR Anticipated DC Date: 09-24-2018 Planned Disposition: Nursing Home Facility External Planned Provider: [facility], MEDICARE REHAB BED DCP follow-up note: CM FAXED HOSPITAL UPDATE TO [facility] AT [phone]. CM CONTINUES TO WAIT FOR ADMISSION DETERMINTION AND INSURANCE AUTHORIZATION FOR REHAB SERVICES AT [facility]. CAMILLE Peña MANGEMENT DCP- Discharge Planning Updated by [id number]: Alex Cavazos on 10/02/18 4:[address] Patient Name: HARRIS RAYO Encounter No: [id number] : 1950 Primary Insurance: NOVASYSMCR Anticipated DC Date: 09-24-2018 Planned Disposition: Nursing Home Facility External Planned Provider: [facility], MEDICARE REHAB BED DCP follow-up note: [facility] NURSE HERE TO EVALUATE PT FOR REHAB ADMISSION. CM CONTINUES TO WAIT FOR ADMISSION DETERMINTION AND INSURANCE AUTHORIZATION FOR REHAB SERVICES AT [facility]. CAMILLE Peña MANGCHAR DCP- Discharge Planning Updated by [id number]: Alex Cavazos on 10/01/18 7:[address] Patient Name: HARRIS RAYO Encounter No: [id number] : 1950 Primary Insurance: NOVASYSMCR Anticipated DC Date: 09-24-2018 Planned Disposition: Nursing Home Facility External Planned Provider: [facility], MEDICARE REHAB BED DCP follow-up note: CM FAXED REFERRAL [facility] AT [phone]. CM WAITING ADMISSION DETERMINATION AND INSURANCE DETERMINATION FOR REHAB AT [facility]. Alex Cavazos CASE MANAGEMENT DCP- Discharge Planning Updated by [id number]: Alex Cavazos on 09/27/18 3:[address] Patient Name: HARRIS RAYO Encounter No: [id number] : 1950 Primary Insurance: NOVASYSMCR Anticipated DC Date: 09-24-2018 Planned Disposition: Nursing Home Facility External Planned Provider: [facility], MEDICARE REHAB BED DCP follow-up note: CM SPOKE TO PT AND SPOUSE IN ROOM REGARDING REHAB NEEDS. PT AND SPOUSE AGREE THAT PT NEEDS REHAB, PT'S SPOUSE CHOSE [facility] WITH SECOND CHOICE OF [facility]. CHOICE SIGNED. PT IN AGREEMENT. IMPORTANT MESSAGE FROM MEDICARE PROVIDED AND EXPLAINED. CM CALLED [facility], , SPOKE TO JACOB WHO VERIFIED BEING IN PT'S INSURANCE NETWORK AND WILL REVIEW FOR ADMISSION TO REHAB. CM FAXED REFERRAL TO [facility] AT [phone]. CM WAITING ADMISSION DETERMINATION AND INSURANCE DETERMINATION FOR REHAB AT [facility]. Alex Cavazos CASE MANAGEMENT DCP- Discharge Planning Updated by [id number]: Alex Cavazos on 09/25/18 9:[address] Patient Name: HARRIS RAYO Encounter No: [id number] : 1950 Primary Insurance: NOVASYSMCR Anticipated DC Date: 09-24-2018 Planned Disposition: retirement facility External Planned Provider: to be determined DCP follow-up note: CM RECEIVED CALL FROM AURORA PHELAN OF [employer], . AURORA IS PT'S INSURANCE DELIVERY TABLE FEEDER AND WILL BE FOLLOWING UP WITH PT POST DISCHARGE FOR CASE MANAGEMENT IF NEEDED. CM INFORMED AURORA OF CM'S CONVERSTATION WITH PT'S SPOUSE REGARDING POSSIBLE NEED OF HALFWAY REHAB AT DISCHARGE. PT'S SPOUSE REPORTED INABILITY TO CARE FOR PT AT HOME IN WEAKENED CONDITION. CM WAITING PT AND SPOUSE TO DISCUSS HALFWAY REHAB OPTIONS AND MAKE A DECISION. CAMILLE Peña DCP- Discharge Planning Updated by [id number]: Alex Cavazos on 09/24/18 4:[address] Patient Name: HARRIS RAYO Encounter No: [id number] : 1950 Primary Insurance: NOVASYSMCR Anticipated DC Date: 09-24-2018 Planned Disposition: HALFWAY FACILITY External Planned Provider: TO BE DETERMINED DCP follow-up note: CM MET WITH PT AND SPOUSE IN ROOM TO DISCUSS DISCHARGE PLANNING AND NEEDS. CM UNABLE TO AWAKEN PT. PT'S SPOUSE REPORTS THE DOCTOR GAVE PT A SEDATIVE. CM DISCUSSED DISCHARGE PLANNING AND THERAPY NOTES TO DATE. PT'S SPOUSE REPORTS SHE IS NOT ABLE TO CARE FOR PT IN HIS WEAKENED STATE AT HOME AND PT WILL NEED REHAB. CM DISCUSSED AVAILABILITY OF INPATIENT AND HALFWAY REHAB. PT'S SPOUSE WANTS TO DISCUSS OPTIONS WITH PT WHEN HE IS AWAKE. CM LEFT PT'S SPOUSE WITH HOME HEALTH PROVIDER LISTING FOR [place], CHOICE FORM AND CM CONTACT INFORMATION. PT'S SPOUSE REPORTS INABILITY TO CARE FOR PT AT HOME IN WEAKENED CONDITION. CM WAITING PT AND SPOUSE TO DISCUSS HALFWAY REHAB OPTIONS AND MAKE A DECISION. Alex Cavazos, CASE MANAGEMENT DCP- Discharge Planning Updated by [id number]: Radha Love on 09/21/18 1:[address] Patient Name: HARRIS RAYO Admission Status: ER Accout number: [id number] Admission Date: 09-19-2018 : 1950 Admission Diagnosis:WEAKNESS Attending: MILAGRO FORTE Current LOS: 2 Anticipated DC Date: 09-24-2018 Planned Disposition: Home with Home Health Primary Insurance: [employer] Discharge Planning Comments: DC PLAN: Rehab vs Home with and Home Health. DC NEEDS: PT/OT Eval to see if he will participate. CM met with patient to complete initial dc planning assessment. Patient not answering questions so CM called his Peg. CM educated patient and Peg on the CM role and verbal consent given by patient's to complete assessment. CM verified patient's address, phone number, and emergency contact phone numbers. Patient lives at home with her. She reports for the past year and a half the patient has basically sat in his recliner 95 % of the time with 75% sleeping. She reports he gets up to go to the bathroom or to the refrigerator. She reports he basically crawls around when he does get out of the chair. Cm asked If he was able to get dressed or take his clothes off and she said he just doesn't wear clothes. He sits around naked (which is what he has done for a long time). At discharge she feel he would benefit from rehab but she is not sure he will agree to go. Patient shook his head yes when I asked him, however CM is not sure he will participate in therapy as he has been refusing most thing this far during his stay. Order received for OT/PT eval to see if he will participate. If he will not participate in therapy neither his insurance or a rehab will accept him. He is a managed medicare and will require authorization. Cm told the if he did not participate than he would have to return home and we could try home Health. She does not have a preference on HH and she cant remember who they have used in the past. Patient's reports she will transport him home at time of discharge if he is able to get in the car. If not he may require ambulance transport home. CM will continue to follow and will assist as needed with dc plans/needs. Business Analyst Ecommerce: Radha Love RN, [facility] DCPIA - Discharge Planning Initial Assessment Updated by [email or web address]: Radha Love on 09/21/18 2:45 pm * How many steps to enter\exit or inside your home? * PCP Dr. Scott * [facility] [address] * Preadmission Environment Home with Family * ADLs Partial Dependent * Partial ADLs (Assistance needed) Bathing Dressing Medication Management Toileting * Equipment Bedside Commode Cane * List name and contact numbers for known caregivers / representatives who currently or will assist patient after discharge: Peg Rayo - - [phone] * Verbal permission to speak to the caregivers and representatives has been obtained from the patient. Yes * Community resources currently utilized None * Additional services required to return to the preadmission environment? Yes * Can the patient safely return to the preadmission environment? Yes * Has this patient been hospitalized within the prior 30 days at any hospital? No Coverage Notice Reviewer: [id number] Jeanmarie Cavazos Notice Issued Date-Time: 09/27/2018 9:05 Notice Type: IM Discharge Notice Notice Delivered To: Family Member Relationship to Patient: Spouse Mechanical Lead Name: LUPE RAYO Delivery Method: HAND - Hand Delivered Shamika Days: Prior Verbal Notification: Recipient Understood Notice: Yes Recipient Signature: Yes Med Rec Note Co-signed by Attending: Coverage Notice Comment: Reviewer: [id number] Jeanmarie Cavazos Notice Issued Date-Time: 09/27/2018 9:05 Notice Type: Patient Choice Letter Notice Delivered To: Family Member Relationship to Patient: Spouse Mechanical Lead Name: LUPE RAYO Delivery Method: HAND - Hand Delivered Shamika Days: Prior Verbal Notification: Recipient Understood Notice: Yes Recipient Signature: Yes Med Rec Note Co-signed by Attending: Coverage Notice Comment: [facility] OR SECOND CHOICE [facility] FOR REHAB Last DP export: 10/08/18 7:08 a Patient Name: HARRIS RAYO Page [id number] at 1327 All edits/amendments must be made on the electronic document DICTATION DATE: 10/08/18 1326 DIRECTOR CENTER: [id number] 10/08/18 1326 RPT#: [id number] DC DATE: STATUS: ADM IN [facility] [address] [place] [address] END OF REPORT
--- NOTE | 2018-10-08 13:27 | NUR ---
PT SITTING UP IN BED WITH EYES OPEN. DC PAPERS SIGNED.
--- NOTE | 2018-10-08 13:42 | MORECARE ---
CASE MANAGEMENT DISCHARGE SUMMARY PATIENT: AHRRIS RAYO UNIT: [id number] ADM DATE: 09/19/18 AGE: 68 : 52 SEX: M ROOM/BED: D.2104 AUTHOR: ALVA,DOC PHYSICIAN: REFERRING PHYSICIAN: MILAGRO FORTE MD DATE OF SERVICE: 10/08/18 Discharge Plan Patient Name: HARRIS RAYO Facility: [facility]:[place] : 1950 Planned Disposition: Fdc Facility Anticipated Discharge Date: 10/08/18 Discharge Date: Expected LOS: 19 Initial Reviewer: [id number] Initial Review Date: 09/19/2018 Generated: 10/08/18 2:42 pm Comments DCP- Discharge Planning Updated by [id number]: Alex Cavazos on 10/08/18 7:[address] Patient Name: HARRIS RAYO Encounter No: [id number] : 1950 Primary Insurance: NOVASYSMCR Anticipated DC Date: 10-05-2018 Planned Disposition: Fdc Facility External Planned Provider: [facility], MEDICARE REHAB BED DISCHARGE PLANNING NOTE: CM FAXED HOSPITAL UPDATE TO [facility] AT [phone]. JORGE WAITING INSURANCE AUTHORIZATION FOR REHAB SERVICES AT [facility]. CAMILLE Peña DCP- Discharge Planning Updated by [id number]: Alex Cavazos on 10/05/18 7:[address] Patient Name: HARRIS RAYO Encounter No: [id number] : 1950 Primary Insurance: NOVASYSMCR Anticipated DC Date: 09-24-2018 Planned Disposition: Fdc Facility External Planned Provider: [facility], MEDICARE REHAB BED DCP follow-up note: [facility], MEDICARE REHAB BED DCP follow-up note: CM CALLED AND SPOKE TO [facility], , WHO INFORMED CM THAT THEY WILL ACCEPT AND ARE WAITING INSURANCE AUTHORZIATION FOR REHAB SERVICES. CM FAXED THE REQUESTED INFORMATION TO [facility] AT [phone]. CM UPDATED CEDRICK VELASCO CM WAITING INSURANCE AUTHORIZATION FOR REHAB SERVICES AT [facility]. CAMILLE PeñaEMENT DCP- Discharge Planning Updated by [id number]: Alex Cavazos on 10/04/18 7:[address] Patient Name: HARRIS RAYO Encounter No: [id number] : 1950 Primary Insurance: NOVASYSMCR Anticipated DC Date: 09-24-2018 Planned Disposition: Fdc Facility External Planned Provider: [facility], MEDICARE REHAB BED DCP follow-up note: CM RECEIVED CALL FROM PALAK OF [facility], , WHO INFORMED CM THAT CURT REQUESTED DOCTOR DOCUMENTATION OF NEED FOR SNF AND SHE CANNOT FIND THE PT EVALUATION IN THE REFERRAL INFORMATION. CM FAXED THE REQUESTED INFORMATION TO [facility] AT [phone]. CM WAITING ADMISSION DETERMINATION WELL INSURANCE AUTHORIZATION FOR REHAB SERVICES AT [facility]. Alex Cavazos, CASE MANGEMENT DCP- Discharge Planning Updated by [id number]: Alex Cavazos on 10/04/18 7:[address] Patient Name: HARRIS RAYO Encounter No: [id number] : 1950 Primary Insurance: NOVASYSMCR Anticipated DC Date: 09-24-2018 Planned Disposition: Fdc Facility External Planned Provider: : [facility], MEDICARE REHAB BED DCP follow-up note: CM FAXED REFERRAL TO [facility], . CM WAITING ADMISSION DETERMINATION FROM [facility]. CM WILL FOLLOW UP WITH LINDEN VIA PHONE TODAY, 10-04-18. Alex Cavazos, CASE MANAGEMENT DCP- Discharge Planning Updated by [id number]: Alex Cavazos on 10/03/18 4:[address] Patient Name: HARRIS RAYO Encounter No: [id number] : 1950 Primary Insurance: NOVASYSMCR Anticipated DC Date: 09-24-2018 Planned Disposition: Fdc Facility External Planned Provider: [facility], MEDICARE REHAB BED DCP follow-up note: CM CALLED AND SPOKE TO ED[facility] WHO REPORTS THAT PT WAS EVALUATED AND THE NURSE REPORTS PT IS NOT APPROPRIATE FOR REHAB SERVICES AND IS APPROPRIATE FOR [employer] CARE. THEY WILL NOT ACCEPT AND REPORTED THAT THE SCREENER NURSE WILL ATTEMPT TO SECURE PLACEMENT IN ANOTHER FACILITY AND WILL CALL CM. CM FAXED REFERRAL TO [facility], . CM WILL FOLLOW UP WITH LILI TOMORROW, 10-04-18. Alex Cavazos CASE MANAGEMENT DCP- Discharge Planning Updated by [id number]: Alex Cavazos on 10/03/18 6:[address] Patient Name: HARRIS RAYO Encounter No: [id number] : 1950 Primary Insurance: NOVASYSMCR Anticipated DC Date: 09-24-2018 Planned Disposition: Fdc Facility External Planned Provider: [facility], MEDICARE REHAB BED DCP follow-up note: CM FAXED HOSPITAL UPDATE TO [facility] AT [phone]. CM CONTINUES TO WAIT FOR ADMISSION DETERMINTION AND INSURANCE AUTHORIZATION FOR REHAB SERVICES AT [facility]. CAMILLE Peña MANGEMENT DCP- Discharge Planning Updated by [id number]: Alex Cavazos on 10/02/18 4:[address] Patient Name: HARRIS RAYO Encounter No: [id number] : 1950 Primary Insurance: NOVASYSMCR Anticipated DC Date: 09-24-2018 Planned Disposition: Fdc Facility External Planned Provider: [facility], MEDICARE REHAB BED DCP follow-up note: [facility] NURSE HERE TO EVALUATE PT FOR REHAB ADMISSION. CM CONTINUES TO WAIT FOR ADMISSION DETERMINTION AND INSURANCE AUTHORIZATION FOR REHAB SERVICES AT [facility]. CAMILLE Peña MANGCHAR DCP- Discharge Planning Updated by [id number]: Alex Cavazos on 10/01/18 7:[address] Patient Name: HARRIS RAYO Encounter No: [id number] : 1950 Primary Insurance: NOVASYSMCR Anticipated DC Date: 09-24-2018 Planned Disposition: Fdc Facility External Planned Provider: [facility], MEDICARE REHAB BED DCP follow-up note: CM FAXED REFERRAL [facility] AT [phone]. CM WAITING ADMISSION DETERMINATION AND INSURANCE DETERMINATION FOR REHAB AT [facility]. Alex Cavazos CASE MANAGEMENT DCP- Discharge Planning Updated by [id number]: Alex Cavazos on 09/27/18 3:[address] Patient Name: HARRIS RAYO Encounter No: [id number] : 1950 Primary Insurance: NOVASYSMCR Anticipated DC Date: 09-24-2018 Planned Disposition: Fdc Facility External [facility], [facility] DCP follow-up note: CM SPOKE TO PT AND SPOUSE IN ROOM REGARDING REHAB NEEDS. PT AND SPOUSE AGREE THAT PT NEEDS REHAB, PT'S SPOUSE CHOSE [facility] WITH [facility]. CHOICE SIGNED. PT IN AGREEMENT. IMPORTANT MESSAGE FROM MEDICARE PROVIDED AND EXPLAINED. CM CALLED [facility], , SPOKE TO JACOB WHO VERIFIED BEING IN PT'S INSURANCE NETWORK AND WILL REVIEW FOR ADMISSION TO REHAB. CM FAXED REFERRAL TO [facility] AT [phone]. CM WAITING ADMISSION DETERMINATION AND INSURANCE DETERMINATION FOR REHAB AT [facility]. Alex Cavazos CASE MANAGEMENT DCP- Discharge Planning Updated by [id number]: Alex Cavazos on 09/25/18 9:[address] Patient Name: HARRIS RAYO Encounter No: [id number] : 1950 Primary Insurance: NOVASYSMCR Anticipated DC Date: 09-24-2018 Planned Disposition: group home facility External Planned Provider: to be determined DCP follow-up note: CM RECEIVED CALL FROM AURORA PHELAN OF [employer], . AURORA IS PT'S INSURANCE LINGO CLEANER AND WILL BE FOLLOWING UP WITH PT POST DISCHARGE FOR CASE MANAGEMENT IF NEEDED. CM INFORMED AURORA OF CM'S CONVERSTATION WITH PT'S SPOUSE REGARDING POSSIBLE NEED OF [facility] AT DISCHARGE. PT'S SPOUSE REPORTED INABILITY TO CARE FOR PT AT HOME IN WEAKENED CONDITION. CM WAITING PT AND SPOUSE TO DISCUSS [facility] OPTIONS AND MAKE A DECISION. CAMILLE Peña DCP- Discharge Planning Updated by [id number]: Alex Cavazos on 09/24/18 4:[address] Patient Name: HARRIS RAYO Encounter No: [id number] : 1950 Primary Insurance: NOVASYSMCR Anticipated DC Date: 09-24-2018 Planned Disposition: [facility] FACILITY External Planned Provider: TO BE DETERMINED DCP follow-up note: CM MET WITH PT AND SPOUSE IN ROOM TO DISCUSS DISCHARGE PLANNING AND NEEDS. CM UNABLE TO AWAKEN PT. PT'S SPOUSE REPORTS THE DOCTOR GAVE PT A SEDATIVE. CM DISCUSSED DISCHARGE PLANNING AND THERAPY NOTES TO DATE. PT'S SPOUSE REPORTS SHE IS NOT ABLE TO CARE FOR PT IN HIS WEAKENED STATE AT HOME AND PT WILL NEED REHAB. CM DISCUSSED AVAILABILITY OF INPATIENT AND [facility]. PT'S SPOUSE WANTS TO DISCUSS OPTIONS WITH PT WHEN HE IS AWAKE. CM LEFT PT'S SPOUSE WITH HOME HEALTH PROVIDER LISTING FOR [place], CHOICE FORM AND CM CONTACT INFORMATION. PT'S SPOUSE REPORTS INABILITY TO CARE FOR PT AT HOME IN WEAKENED CONDITION. CM WAITING PT AND SPOUSE TO DISCUSS [facility] OPTIONS AND MAKE A DECISION. Alex Cavazos, CASE MANAGEMENT DCP- Discharge Planning Updated by [id number]: Radha Love on 09/21/18 1:[address] Patient Name: HARRIS RAYO Admission Status: ER Accout number: [id number] Admission Date: 09-19-2018 : 1950 Admission Diagnosis:WEAKNESS Attending: MILAGRO FORTE Current LOS: 2 Anticipated DC Date: 09-24-2018 Planned Disposition: Home with Home Health Primary Insurance: [employer] Discharge Planning Comments: DC PLAN: Rehab vs Home with and Home Health. DC NEEDS: PT/OT Eval to see if he will participate. CM met with patient to complete initial dc planning assessment. Patient not answering questions so CM called his Peg. CM educated patient and Peg on the CM role and verbal consent given by patient's to complete assessment. CM verified patient's address, phone number, and emergency contact phone numbers. Patient lives at home with her. She reports for the past year and a half the patient has basically sat in his recliner 95 % of the time with 75% sleeping. She reports he gets up to go to the bathroom or to the refrigerator. She reports he basically crawls around when he does get out of the chair. Cm asked If he was able to get dressed or take his clothes off and she said he just doesn't wear clothes. He sits around naked (which is what he has done for a long time). At discharge she feel he would benefit from rehab but she is not sure he will agree to go. Patient shook his head yes when I asked him, however CM is not sure he will participate in therapy as he has been refusing most thing this far during his stay. Order received for OT/PT eval to see if he will participate. If he will not participate in therapy neither his insurance or a rehab will accept him. He is a managed medicare and will require authorization. Cm told the if he did not participate than he would have to return home and we could try home Health. She does not have a preference on HH and she cant remember who they have used in the past. Patient's reports she will transport him home at time of discharge if he is able to get in the car. If not he may require ambulance transport home. CM will continue to follow and will assist as needed with dc plans/needs. Lead Investigator: Radha Love RN, [facility] DCPIA - Discharge Planning Initial Assessment Updated by [id number]: Radha Love on 09/21/18 2:45 pm * How many steps to enter\exit or inside your home? * PCP Dr. Scott * [facility] [address] * Preadmission Environment Home with Family * ADLs Partial Dependent * Partial ADLs (Assistance needed) Bathing Dressing Medication Management Toileting * Equipment Bedside Commode Cane * List name and contact numbers for known caregivers / representatives who currently or will assist patient after discharge: Peg Rayo - - [phone] * Verbal permission to speak to the caregivers and representatives has been obtained from the patient. Yes * Community resources currently utilized None * Additional services required to return to the preadmission environment? Yes * Can the patient safely return to the preadmission environment? Yes * Has this patient been hospitalized within the prior 30 days at any hospital? No Coverage Notice Reviewer: [id number] Jeanmarie Cavazos Notice Issued Date-Time: 09/27/2018 9:05 Notice Type: IM Discharge Notice Notice Delivered To: Family Member Relationship to Patient: Spouse Electrical Mechanic Name: LUPE RAYO Delivery Method: HAND - Hand Delivered Shamika Days: Prior Verbal Notification: Recipient Understood Notice: Yes Recipient Signature: Yes Med Rec Note Co-signed by Attending: Coverage Notice Comment: Reviewer: [id number] Jeanmarie Cavazos Notice Issued Date-Time: 09/27/2018 9:05 Notice Type: Patient Choice Letter Notice Delivered To: Family Member Relationship to Patient: Spouse Electrical Mechanic Name: LUPE RAYO Delivery Method: HAND - Hand Delivered Shamika Days: Prior Verbal Notification: Recipient Understood Notice: Yes Recipient Signature: Yes Med Rec Note Co-signed by Attending: Coverage Notice Comment: [facility] OR SECOND CHOICE [facility] FOR REHAB Last DP export: 10/08/18 12:27 p Patient Name: HARRIS RAYO Page [id number] at 1342 All edits/amendments must be made on the electronic document DICTATION DATE: 10/08/18 1342 STUDENT SUCCESS ADVISOR: [email or web address] 10/08/18 1342 RPT#: [id number] DC DATE: STATUS: ADM IN [facility] [address] [place] [address] END OF REPORT
--- NOTE | 2018-10-08 13:51 | MORECARE ---
CASE MANAGEMENT DISCHARGE SUMMARY PATIENT: HARRIS RAYO UNIT: [id number] ADM DATE: 09/19/18 AGE: 68 : [birth year] SEX: M ROOM/BED: D.2104 AUTHOR: ALVA,DOC PHYSICIAN: REFERRING PHYSICIAN: MILAGRO FORTE MD DATE OF SERVICE: 10/08/18 Discharge Plan Patient Name: HARRIS RAYO Facility: [facility]:[place] : 1950 Planned Disposition: [facility] Facility Anticipated Discharge Date: 10/08/18 Discharge Date: Expected LOS: 19 Initial Reviewer: [id number] Initial Review Date: 09/19/2018 Generated: 10/08/18 2:50 pm Comments DCP- Discharge Planning Updated by [email or web address]: Alex Cavazos on 10/08/18 12:[address] Patient Name: HARRIS RAYO Encounter No: [id number] : 1950 Primary Insurance: NOVASYSMCR Anticipated DC Date: 10-08-2018 Planned Disposition: [facility] Facility External Planned Provider: [facility], MEDICARE REHAB BED DCP follow-up note: CM RECEIVED CALL FROM [facility] WHO INFORMED CM THAT THEY HAVE RECEIVED INSURANCE AUTHORIZATION FOR REHAB AND WILL ACCEPT TODAY. CM NOTIFIED CEDRICK BAXTER WHO INFORMED CM THAT DISCHARGE WILL BE PUT IN SHORTLY. CM PT NOTIFIED WHO DID NOT SPEAK, ONLY NODDED HIS HEAD IN AGREEMENT. IMPORTANT MESSAGE FROM MEDICARE PROVIDED AND EXPLAINED. CM CALLED PT'S SPOUSE, Peg Rayo, , WHO IS IN AGREEMENT WITH DISCHARGE TODAY TO [facility] FOR REHAB. SHE WILL BRING PT SOME CLOTHES TO WEAR TO REHAB TODAY. CM FAX ED DISCHARGE INFORMATION TO [facility] AT [phone]. END POLISHER NURSE NOTIFIED. CALL NURSE REPORT TO [facility] AT [phone]. [facility] TO ARRANGE TRANSPORTATION TO WATER POLLUTION SPECIALIST PT FOR TRANSPORT TO REHAB TODAY. Alex Cavazos CASE MANAGEMENT DCP- Discharge Planning Updated by [id number]: Alex Cavazos on 10/08/18 7:[address] Patient Name: HARRIS RAYO Encounter No: [id number] : 1950 Primary Insurance: NOVASYSMCR Anticipated DC Date: 10-05-2018 Planned Disposition: [facility] Facility External Planned Provider: [facility], MEDICARE REHAB BED DISCHARGE PLANNING NOTE: CM FAXED HOSPITAL UPDATE TO [facility] AT [phone]. CM WAITING INSURANCE AUTHORIZATION FOR REHAB SERVICES AT [facility]. CAMILLE Peña MANGEMENT DCP- Discharge Planning Updated by [email or web address]: Alex Cavazos on 10/05/18 7:[address] Patient Name: HARRIS RAYO Encounter No: [id number] : 1950 Primary Insurance: NOVASYSMCR Anticipated DC Date: 09-24-2018 Planned Disposition: [facility] Facility External Planned Provider: [facility], MEDICARE REHAB BED DCP follow-up note: [facility], MEDICARE REHAB BED DCP follow-up note: CM CALLED AND SPOKE TO [facility], , WHO INFORMED CM THAT THEY WILL ACCEPT AND ARE WAITING INSURANCE AUTHORZIATION FOR REHAB SERVICES. CM FAXED THE REQUESTED INFORMATION TO [facility] AT [phone]. CM UPDATED CEDRICK VELASCO CM WAITING INSURANCE AUTHORIZATION FOR REHAB SERVICES AT [facility]. CAMILLE Peña MANGEMENT DCP- Discharge Planning Updated by [email or web address]: Alex Cavazos on 10/04/18 7:[address] Patient Name: HARRIS RAYO Encounter No: [id number] : 1950 Primary Insurance: NOVASYSMCR Anticipated DC Date: 09-24-2018 Planned Disposition: [facility] Facility External Planned Provider: [facility], MEDICARE REHAB BED DCP follow-up note: CM RECEIVED CALL FROM [facility], , WHO INFORMED CM THAT [facility] REQUESTED DOCTOR DOCUMENTATION OF NEED FOR SNF AND SHE CANNOT FIND THE PT EVALUATION IN THE REFERRAL INFORMATION. CM FAXED THE REQUESTED INFORMATION TO [facility] AT [phone]. CM WAITING ADMISSION DETERMINATION WELL INSURANCE AUTHORIZATION FOR REHAB SERVICES AT [facility]. CAMILLE Peña MANGEMENT DCP- Discharge Planning Updated by [id number]: Alex Cavazos on 10/04/18 7:[address] Patient Name: HARRIS RAYO Encounter No: [id number] : 1950 Primary Insurance: NOVASYSMCR Anticipated DC Date: 09-24-2018 Planned Disposition: [facility] Facility External Planned Provider: : [facility], MEDICARE REHAB BED DCP follow-up note: CM FA[facility]ED REFERRAL TO [facility], . CM WAITING ADMISSION DETERMINATION FROM [facility]. CM WILL FOLLOW UP WITH LINDEN VIA PHONE TODAY, 10-04-18. CAMILLE Peña MANAGEMENT DCP- Discharge Planning Updated by [id number]: Alex Cavazos on 10/03/18 4:[address] Patient Name: HARRIS RAYO Encounter No: [id number] : 1950 Primary Insurance: NOVASYSMCR Anticipated DC Date: 09-24-2018 Planned Disposition: [facility] Facility External Planned Provider: [facility], MEDICARE REHAB BED DCP follow-up note: CM CALLED AND SPOKE TO EDDIE OF [facility] WHO REPORTS THAT PT WAS EVALUATED AND THE NURSE REPORTS PT IS NOT APPROPRIATE FOR REHAB SERVICES AND IS APPROPRIATE FOR LONGTERM CARE. THEY WILL NOT ACCEPT AND REPORTED THAT THE SCREENER NURSE WILL ATTEMPT TO SECURE PLACEMENT IN ANOTHER FACILITY AND WILL CALL CM. CM FAXED REFERRAL TO [facility], . CM WILL FOLLOW UP WITH LINDEN TOMORROW, 10-04-18. CAMILLE Peña DCP- Discharge Planning Updated by [id number]: Alex Cavazos on 10/03/18 6:[address] Patient Name: HARRIS RAYO Encounter No: [id number] : 1950 Primary Insurance: NOVASYSMCR Anticipated DC Date: 09-24-2018 Planned Disposition: [facility] Facility External Planned Provider: [facility], MEDICARE REHAB BED DCP follow-up note: CM FAXED HOSPITAL UPDATE TO [facility] AT [phone]. CM CONTINUES TO WAIT FOR ADMISSION DETERMINTION AND INSURANCE AUTHORIZATION FOR REHAB SERVICES AT [facility]. CAMILLE Peña DCP- Discharge Planning Updated by [id number]: Alex Cavazos on 10/02/18 4:[address] Patient Name: HARRIS RAYO Encounter No: [id number] : 1950 Primary Insurance: NOVASYSMCR Anticipated DC Date: 09-24-2018 Planned Disposition: [facility] Facility External Planned Provider: [facility], MEDICARE REHAB BED DCP follow-up note: [facility] NURSE HERE TO EVALUATE PT FOR REHAB ADMISSION. CM CONTINUES TO WAIT FOR ADMISSION DETERMINTION AND INSURANCE AUTHORIZATION FOR REHAB SERVICES AT [facility]. CAMILLE PeñaEMENT DCP- Discharge Planning Updated by [id number]: Alex Cavazos on 10/01/18 7:[address] Patient Name: HARRIS RAYO Encounter No: [id number] : 1950 Primary Insurance: NOVASYSMCR Anticipated DC Date: 09-24-2018 Planned Disposition: [facility] Facility External Planned Provider: [facility], MEDICARE REHAB BED DCP follow-up note: CM FAXED REFERRAL [facility] AT [phone]. CM WAITING ADMISSION DETERMINATION AND INSURANCE DETERMINATION FOR REHAB AT [facility]. CAMILLE Peña DCP- Discharge Planning Updated by [email or web address]: Alex Cavazos on 09/27/18 3:[address] Patient Name: HARRIS RAYO Encounter No: [id number] : 1950 Primary Insurance: NOVASYSMCR Anticipated DC Date: 09-24-2018 Planned Disposition: [facility] Facility External Planned Provider: [facility], MEDICARE REHAB BED DCP follow-up note: CM SPOKE TO PT AND SPOUSE IN ROOM REGARDING REHAB NEEDS. PT AND SPOUSE AGREE THAT PT NEEDS REHAB, PT'S SPOUSE CHOSE [facility] WITH SECOND CHOICE OF [facility]. CHOICE SIGNED. PT IN AGREEMENT. IMPORTANT MESSAGE FROM MEDICARE PROVIDED AND EXPLAINED. CM CALLED [facility], , SPOKE TO JACOB WHO VERIFIED BEING IN PT'S INSURANCE NETWORK AND WILL REVIEW FOR ADMISSION TO REHAB. CM FAXED REFERRAL TO [facility] AT [phone]. CM WAITING ADMISSION DETERMINATION AND INSURANCE DETERMINATION FOR REHAB AT [facility]. CAMILLE Peña MANAGEMENT DCP- Discharge Planning Updated by [id number]: Alex Cavazos on 09/25/18 9:[address] Patient Name: HARRIS RAYO Encounter No: [id number] : 1950 Primary Insurance: NOVASYSMCR Anticipated DC Date: 09-24-2018 Planned Disposition: fdc facility External Planned Provider: to be determined DCP follow-up note: CM RECEIVED CALL FROM AURORA PHELAN OF [employer], . AURORA IS PT'S INSURANCE METALLURGY LABORATORY TECHNICIAN AND WILL BE FOLLOWING UP WITH PT POST DISCHARGE FOR CASE MANAGEMENT IF NEEDED. CM INFORMED AURORA OF CM'S CONVERSTATION WITH PT'S SPOUSE REGARDING POSSIBLE NEED OF ASSISTED REHAB AT DISCHARGE. PT'S SPOUSE REPORTED INABILITY TO CARE FOR PT AT HOME IN WEAKENED CONDITION. CM WAITING PT AND SPOUSE TO DISCUSS ASSISTED REHAB OPTIONS AND MAKE A DECISION. CAMILLE Peña DCP- Discharge Planning Updated by [id number]: Alex Cavazos on 09/24/18 4:[address] Patient Name: HARRIS RAYO Encounter No: [id number] : 1950 Primary Insurance: NOVASYSMCR Anticipated DC Date: 09-24-2018 Planned Disposition: ASSISTED FACILITY External Planned Provider: TO BE DETERMINED DCP follow-up note: CM MET WITH PT AND SPOUSE IN ROOM TO DISCUSS DISCHARGE PLANNING AND NEEDS. CM UNABLE TO AWAKEN PT. PT'S SPOUSE REPORTS THE DOCTOR GAVE PT A SEDATIVE. CM DISCUSSED DISCHARGE PLANNING AND THERAPY NOTES TO DATE. PT'S SPOUSE REPORTS SHE IS NOT ABLE TO CARE FOR PT IN HIS WEAKENED STATE AT HOME AND PT WILL NEED REHAB. CM DISCUSSED AVAILABILITY OF INPATIENT AND ASSISTED REHAB. PT'S SPOUSE WANTS TO DISCUSS OPTIONS WITH PT WHEN HE IS AWAKE. CM LEFT PT'S SPOUSE WITH HOME HEALTH PROVIDER LISTING FOR [facility], CHOICE FORM AND CM CONTACT INFORMATION. PT'S SPOUSE REPORTS INABILITY TO CARE FOR PT AT HOME IN WEAKENED CONDITION. CM WAITING PT AND SPOUSE TO DISCUSS ASSISTED REHAB OPTIONS AND MAKE A DECISION. Alex Cavazos CASE NANO DCP- Discharge Planning Updated by [id number]: Radha Love on 09/21/18 1:[address] Patient Name: HARRIS RAYO Admission Status: ER Accout number: [id number] Admission Date: 09-19-2018 : 1950 Admission Diagnosis:WEAKNESS Attending: MILAGRO FORTE Current LOS: 2 Anticipated DC Date: 09-24-2018 Planned Disposition: Home with Home Health Primary Insurance: NOVASYMapp Discharge Planning Comments: DC PLAN: Rehab vs Home with and Home Health. DC NEEDS: PT/OT Eval to see if he will participate. CM met with patient to complete initial dc planning assessment. Patient not answering questions so CM called his Peg. CM educated patient and Peg on the CM role and verbal consent given by patient's to complete assessment. CM verified patient's address, phone number, and emergency contact phone numbers. Patient lives at home with her. She reports for the past year and a half the patient has basically sat in his recliner 95 % of the time with 75% sleeping. She reports he gets up to go to the bathroom or to the refrigerator. She reports he basically crawls around when he does get out of the chair. Cm asked If he was able to get dressed or take his clothes off and she said he just doesn't wear clothes. He sits around naked (which is what he has done for a long time). At discharge she feel he would benefit from rehab but she is not sure he will agree to go. Patient shook his head yes when I asked him, however CM is not sure he will participate in therapy as he has been refusing most thing this far during his stay. Order received for OT/PT eval to see if he will participate. If he will not participate in therapy neither his insurance or a rehab will accept him. He is a managed medicare and will require authorization. Cm told the if he did not participate than he would have to return home and we could try home Health. She does not have a preference on HH and she cant remember who they have used in the past. Patient's reports she will transport him home at time of discharge if he is able to get in the car. If not he may require ambulance transport home. CM will continue to follow and will assist as needed with dc plans/needs. Director Shopper Marketing: Radha Love RN, [facility] DCPIA - Discharge Planning Initial Assessment Updated by [id number]: Radha Love on 09/21/18 2:45 pm * How many steps to enter\exit or inside your home? * PCP Dr. Scott * [facility] on [address] * Preadmission Environment Home with Family * ADLs Partial Dependent * Partial ADLs (Assistance needed) Bathing Dressing Medication Management Toileting * Equipment Bedside Commode Cane * List name and contact numbers for known caregivers / representatives who currently or will assist patient after discharge: Peg Rayo - - [phone] * Verbal permission to speak to the caregivers and representatives has been obtained from the patient. Yes * Community resources currently utilized None * Additional services required to return to the preadmission environment? Yes * Can the patient safely return to the preadmission environment? Yes * Has this patient been hospitalized within the prior 30 days at any hospital? No Coverage Notice Reviewer: LEON Cavazos Notice Issued Date-Time: 09/27/2018 9:05 Notice Type: IM Discharge Notice Notice Delivered To: Family Member Relationship to Patient: Spouse Motorsports Technician Name: LUPE RAYO Delivery Method: HAND - Hand Delivered Shamika Days: Prior Verbal Notification: Recipient Understood Notice: Yes Recipient Signature: Yes Med Rec Note Co-signed by Attending: Coverage Notice Comment: Reviewer: LEON Cavazos Notice Issued Date-Time: 09/27/2018 9:05 Notice Type: Patient Choice Letter Notice Delivered To: Family Member Relationship to Patient: Spouse Motorsports Technician Name: LUPE RAYO Delivery Method: HAND - Hand Delivered Shamika Days: Prior Verbal Notification: Recipient Understood Notice: Yes Recipient Signature: Yes Med Rec Note Co-signed by Attending: Coverage Notice Comment: [facility] FOR REHAB Reviewer: LEON Cavazos Notice Issued Date-Time: 10/08/2018 13:35 Notice Type: IM Discharge Notice Notice Delivered To: Patient Relationship to Patient: Motorsports Technician Name: Delivery Method: HAND - Hand Delivered Shamika Days: Prior Verbal Notification: Recipient Understood Notice: Yes Recipient Signature: Yes Med Rec Note Co-signed by Attending: Coverage Notice Comment: Last DP export: 10/08/18 12:42 p Patient Name: HARRIS RAYO Page [id number] at 1351 All edits/amendments must be made on the electronic document DICTATION DATE: 10/08/18 1350 OXYGEN FURNACE OPERATOR: [email or web address] 10/08/18 1350 RPT#: [id number] DC DATE: STATUS: ADM IN [facility] [address] [place] [address] END OF REPORT
--- NOTE | 2018-10-08 14:35 | NUR ---
OT NOTE: REMAINS LETHARGIC IN PM TODAY. YARON BALBUENA, OTR/L
--- NOTE | 2018-10-08 14:43 | NUR ---
PT DC`D VIA WHEELCHAIR WITH TRANSPORT STAFF FROM [facility] AND .
[2018-10-23 07:14] LABS: FUNGUS MYCOLOGY CULTURE Final report (())
== END 2018-10-08 14:43 | DRG 177 ==
LOC: D.ER 11:24 → D.ICU 17:49 → D.M2 17:49 → D.SDCHOLD 10-05 10:29 → D.M2 10-05 10:32
PROVIDERS: Emergency Medicine; Internal Medicine Pulmonary Disease; Specialist; ADMIT Legal Medicine; ATTEND Legal Medicine
PROC: 0W993ZZ Drainage of Right Pleural Cavity, Percutaneous Approach (ICD-10-PCS; principal; 2018-09-24 14:30)
DX: J15.6 Pneumonia due to other Gram-negative bacteria (principal); G93.41 Metabolic encephalopathy; L89.893 Pressure ulcer of other site, stage 3; I50.23 Acute on chronic systolic (congestive) heart failure; N17.9 Acute kidney failure, unspecified; J98.11 Atelectasis; M62.82 Rhabdomyolysis; I11.0 Hypertensive heart disease with heart failure; J13 Pneumonia due to Streptococcus pneumoniae; I16.0 Hypertensive urgency; L89.122 Pressure ulcer of left upper back, stage 2; L89.222 Pressure ulcer of left hip, stage 2; I71.2 Thoracic aortic aneurysm, without rupture

== ENCOUNTER 2018-10-10 17:57 | Inpatient (IN) | payer MEDICARE, MEDICAID ==
[2018-09-20 09:17] VITALS: Wt 65.5 kg
[~2018-10-10 17:57] MED LIST changes: +CATAPRES TTS-3 TRANSDERM; +Cozaar PO; +HYDRALAZINE HCL50 MG PO; +METOPROLOL TART50 MG PO; +NORVASC5 MG PO
--- NOTE | 2018-10-10 20:00 | NUR ---
VS ON ADMISSION 98.1, 140/85, 75, 18, 95
[2018-10-10] MEDS ORDERED: ZOLOFT25 MG PO (22:03)
--- NOTE | 2018-10-10 22:36 | NUR ---
PATIENT ADMITTED TO ROOM [address] [facility] FOR BEING COMBATIVE AND EXIT SEEKING. SPOKE WITH PATIENT'S , MIKE AND SHE WANTS HIM TO HAVE HELP AND ADMITS TO NOT ABLE TO TAKE CARE OF HIM BY HIMSELF. PATIENT IS CONFUSED, ORIENTED TO SELF ONLY, WHEN PATIENT ARRIVED TO HIS ROOM HE SAID THAT HE HAS BEEN KIDNAPPED AND THAT HE NEEDED HELP. PATIENT ORIENTED TO ROOM, BATHROOM AND CALL HART. SPOUSE INFORMED OF VISITATION HOURS. CODE WORD IS "TATER".
[2018-10-11 07:28] LABS: APPEARANCE CLEAR (CLEAR); BACTERIA FEW /hpf (NONE SEEN); BILIRUBIN NEGATIVE (NEGATIVE); COLOR YELLOW (YELLOW); GLUCOSE NEGATIVE (NEGATIVE); KETONE NEGATIVE (NEGATIVE); NITRITE NEGATIVE (NEGATIVE); PROTEIN 1+ mg/dL (NEGATIVE); RED CELLS - URINE 0-5 /hpf (0-5); UROBILINOGEN NORMAL (NORMAL)
[2018-10-11 07:29] LABS: EPITHELIAL CELLS RARE /hpf (0-5); WHITE CELLS - URINE RARE /hpf (0-5); YEAST <1+ /hpf (NONE SEEN)
[2018-10-11 07:41] LABS: ALBUMIN 2.6 g/dL (3.4-5.0); BILIRUBIN - TOTAL 1.38 mg/dL (0.2-1.3); CALCIUM 9.3 mg/dL (8.5-10.1); CARBON DIOXIDE 29.4 mmol/L (21.0-32.0); CHOL - HDL RATIO 3.9 ratio (2.3-4.9); CREATININE - SERUM 1.1 mg/dL (0.6-1.3); LDL-HDL RATIO 2.5 ratio (1.5-3.5); POTASSIUM - SERUM 3.4 mmol/L (3.5-5.1); PROTEIN - SERUM 6.7 g/dL (6.4-8.2); THYROID STIMULATING HORMONE 0.42 uIU/mL (0.36-3.74)
[2018-10-11 07:49] LABS: BASOPHILS 0.5 % (0-2); EOSINOPHILS 4.8 % (0-7); HEMATOCRIT 40.5 % (42.0-54.0); HEMOGLOBIN 13.4 g/dL (13.5-17.5); IMMATURE GRANULOCYTES 0.5 % (0-5); LYMPHOCYTES 15.5 % (15-50); MCH 24.8 pg (26.0-34.0); MCHC 33.1 g/dL (31.0-37.0); MCV 74.9 fL (80.0-100.0); MONOCYTES 17.9 % (2-11); NEUTROPHILS 60.8 % (40-80); PLATELET COUNT 162 10x3/uL (130-400); RBC 5.41 10x6/uL (4.20-6.10); RDW 20.6 % (11.5-14.5); WBC 4.2 10x3/uL (4.8-10.8)
[2018-10-11 08:30] VITALS: BP 113/71
[2018-10-11 10:07] VITALS: BP 113/71
--- NOTE | 2018-10-11 11:26 | NUR ---
SPOKE WITH FOR VERBAKL CONSENT AND TO VERIFY CODE STATUS. CONSENT GIVEN AND CODE STATUS VERIFIED.
--- NOTE | 2018-10-11 12:40 | NUR ---
TEAM TREATMENT REVIEW: DIET: Regular diet, Ensure w/ meals PO Intake: 45% x 9 meals, 75% x 1 snack Wt: Sep 30- 171.8 lbs; Oct 07- 181.8 (+10 lbs) BM: x 1 on 10/10 Meds: MEGACE, IMODIUM Labs: chloride- 108(H), BUN- 38(H), Cr- 1.4(H), Mg- 1.7(L) Goal: PO intake >/= 75% for meals, Stable wt, BM q 3 days Will continue to monitor closely Clinical Dietitian following
--- NOTE | 2018-10-11 12:50 | NUR ---
TEAM TREATMENT REVIEW: DIET: Regular mechanical soft PO INTAKE: 42% per 12 meals WT: Sep 30- 166 lbs; Oct 07: 164 lbs BM: x 1 on 10/11 MEDS: Reviewed LABS: BUN- 34(H) GOALS: PO intake > 75%, stable wt, BM q 3 days Will continue to monitor closely Clincal dietitian following
--- NOTE | 2018-10-11 13:49 | NUR ---
The patient has had two bowel movements and they are loose.
--- NOTE | 2018-10-11 16:16 | NUR ---
CONTINUE TO ROTATE Q 2 HOUR TO PREVENT FURTHER BREAKDOWN.
[2018-10-11 20:45] VITALS: BP 123/42; BP 134/82
[2018-10-11 20:55] VITALS: BP 134/82
--- NOTE | 2018-10-11 22:51 | NUR ---
B) Patient is alert and oriented to person, calm and cooperative, I) Administered scheduled medications as ordered, monitored for safety R) Mediation compliant, resting in a gerichair in the hallway now, P) Continue plan of care.
--- NOTE | 2018-10-12 07:10 | NUR ---
PATIENT SITTING IN CHAIR. ATTEMPTING TO GET UP AND LEAVE. PATIENT DID NOT SLEEP AT ALL ON PREVIOUS SHIFT. PATIENT STATED "I'M NOT A PATIENT HERE. I AM TO VISIT SOMEONE NOW LET ME LEAVE" PT IS ALERT AND ORIENTED TO SELF. CONFUSION NOTED. PT IS A LEFT BKA. PT HAS A AREA TO R HIP. SKIN IS NOT OPEN AT THIS TIME. WILL CONT TO TURN Q 2 HOUR TO PREVENT FURTHER BREAKDOWN. CHAIR ALARM IN PLACE AND ACTIVE. WILL CONT PLAN OF CARE.
--- NOTE | 2018-10-12 07:34 | NUR ---
PATIENT DID NOT SLEEP ON PREVIOUS SHIFT. PT SAT IN THE FLOOR AND SCOOTED TOWARD THE DOOR ON THE FLOOR. PT STATED HE WANTED TO GO OUTSIDE. 2X STAFF TO ASSIST PATIENT INTO RECLINER CHAIR. CHAIR ALARM WAS IN PLACE AND ACTIVE. PT CONTINUES TO ATTEMPT TO STRIP CLOTHING AND CRAWL OUT OF CHAIR ONTO FLOOR. ATIVAN 0.5 MG IM GIVEN PER DR. CARSON ORDER. WILL REASSESS Q 1 HOUR FOR EFFECTIVENESS.
--- NOTE | 2018-10-12 08:10 | NUR ---
PATIENT IS ATTEMPTING TO CLIMB OUT OF CHAIR ONTO FLOOR. PATIENT IS ANXIOUS AND STATING "I'M NOT A PATIENT HERE. AND I WANT TO LEAVE" HALDOL 2 MG IM GIVEN PER DR. CARSON ORDER. WILL REASSES Q 1 HOUR FOR EFFECTIVENESS.
[2018-10-12 08:11] LABS: RAPID PLASMA REAGIN Non Reactive (Non Reactive)
--- NOTE | 2018-10-12 08:28 | NUR ---
ATIVAN 0.5 MG IM FOR ANXIETY IS NOT EFFEVTIVE AT THIS TIME. PATIENT IS VERY ANXIOUS STATING "I'M NEEDING TO LEAVE HERE."
[2018-10-12 08:51] VITALS: BP 130/56
--- NOTE | 2018-10-12 09:02 | NUR ---
HALDOL 2 MG IM IS EFFECTIVE AT THIS TIME. WILL CONT TO MONITOR.
--- NOTE | 2018-10-12 14:23 | NUR ---
PATIENT IS RESTING IN CHAIR AT THIS TIME. NO BEHAVIORS NOTED SINCE MEDICAITON WAS GIVEN. PT DID TAKE MEDICATION THIS SHIFT. PT DID NOT SLEEP ON PREVIOUS SHIFT. WILL CONT TO MONITOR
--- NOTE | 2018-10-12 16:06 | PSY ---
PATIENT NAME:HARRIS RAYO MEDICAL RECORD: [id number] : [birth year] LOCATION:[facility] ADMISSION DATE: 10/10/18 ACCOUNT: [id number] PSYCHIATRIC EVALUATION DATE OF EVALUATION: 10/11/18 IDENTIFYING DATA: The patient is 68 years old and he is admitted to the hospital on a voluntary basis. CHIEF COMPLAINT: Agitation. HISTORY OF PRESENT ILLNESS: The patient, despite his relative youth at 68, is unfortunately suffering from dementia that is advanced. It is so advanced, he has to live in a long-term. At the long-term, he has been very disruptive. He has been exit seeking, and when redirected becomes aggressive and combative with staff. Staff have been unable to manage his behavior. He has been refusing most of his medications, throwing them on the floor along with water, cursing, threatening and trying to attack staff. The long-term feels he is unmanageable and request that we hospitalize him and evaluate the situation and obviously attempt to help him. PAST MEDICAL HISTORY: Significant for hypertension along with a left BKA. PAST PSYCHIATRIC HISTORY: Significant for reports of depression and anxiety, but I have no details about that and then of course he does have the dementia that is advanced, although I do not know when or how that diagnosis was made. FAMILY HISTORY: Unknown. ALLERGIES: No known drug allergies. CURRENT MEDICATIONS: Include Norvasc, Cozaar, Lopressor, Catapres. SOCIAL HISTORY: The patient is . He tells me that he has adult children, but he cannot remember their names or how many. He cannot remember what he did for a living. He says he has never drank or used drugs, but I think he is unreliable. He does say he used to smoke cigarettes, but does not anymore. MENTAL STATUS EXAMINATION: The patient is awake, alert and oriented to person only. His mood is flat. His affect is constricted. Thought processes are circumstantial. Memory, concentration, and abstraction abilities are impaired and he denies that he would seek to harm himself or others as well as auditory and visual hallucinations. ASSETS: Supportive living environment. LIABILITIES: Limited insight. DIAGNOSTIC IMPRESSION: AXIS I: Major vascular neurocognitive disorder. AXIS II: None. AXIS III: Hypertension, left below knee amputation, congestive heart failure and thoracic aortic aneurysm. AXIS IV: Moderate. AXIS V: Global assessment of functioning is 35. PLAN: At this time, the patient is admitted to the hospital secondary to agitated and aggressive behaviors associated with a dementing illness. He will be comprehensively evaluated from both a medical, psychological, and social standpoint. He will be treated with both memory enhancing and mood stabilizing medications. His long-term prognosis is guarded. TRANSINT:[id number] Voice Confirmation ID: [id number] DOCUMENT ID: [id number] YESSICA CARSON MD at 1606 CC: [id number] DICTATION DATE: 10/11/18 1523 SENIOR LOAN OFFICER: 10/11/18 1538 ADM IN [id number] [place] [address]
[2018-10-12 20:00] VITALS: BP 115/84
--- NOTE | 2018-10-13 04:22 | NUR ---
B) Patient is alert and oriented to self, very confused, no demands to leave this shift, I) Administered scheduled medications as ordered, monitored for safety R) Mediation compliant, follows instructions, P) Contnue plan of care.
--- NOTE | 2018-10-13 09:48 | NUR ---
RECEIVED PATIENT IN DINING ROOM FOR B'FAST, ALERT, CALM, COOPERATIVE. MEDS ADMIN PER ORDERS WITH COMPLETE MED COMPLIANCE NOTED. NO AGGRESSION NOTED. PATIENT CONTENT WITH REMAINING IN RECLINER. CONT POC DIRECTED.
[2018-10-13 10:41] VITALS: BP 110/64
--- NOTE | 2018-10-13 12:25 | PN ---
PATIENT:HARRIS RAYO MEDICAL RECORD: [id number] LOCATION:[facility] ADMISSION DATE: 10/10/18 PROGRESS NOTE DATE OF SERVICE: 10/12/2018 SUBJECTIVE: The patient's case was discussed with staff. He has no new complaint. OBJECTIVE: The patient has been quite agitated. He apparently slid out of his wheelchair, was not injured, but slid onto the floor and then slid himself across the floor with his one leg and on his bottom to one of the locked exit doors and was demanding to leave. He is very confused. He slept none last night. ASSESSMENT: No change in diagnoses. PLAN: The patient's medicines have been reviewed. I am going to prescribe medicine to help calm him and to help him sleep better. TRANSINT:[id number] Voice Confirmation ID: [id number] DOCUMENT ID: [id number] YESSICA CARSON MD at 1225 CC: [id number] DICTATION DATE: 10/12/181702 JINRIKSHA DRIVER: 10/12/18 2203 ADM IN [id number] [place] [address]
[2018-10-13 20:16] VITALS: BP 123/79
--- NOTE | 2018-10-13 23:16 | NUR ---
B.) PT IS ALERT AND ORIENTED TO SELF AND SITUATION. HE IS VERY SOFT SPOKEN AND QUIET. HE IS RECIEVED IN A VALERIE-CHAIR. I.) PROVIDED PM MEDICATIONS. R.) COMPLIANT WITH ALL MEDICATIONS. P.) CONTINUE PLAN OF CARE
[2018-10-14 07:00] VITALS: BP 87/51
--- NOTE | 2018-10-14 08:18 | NUR ---
PATIENT'S V/S T 98.56, B/P 87/51, P 85, R 16, SPO2 97%. DR HAMMER NOTIFIED AND INSTRUCTED TO HOLD ALL 0900 [address]TI-[address] DR HAMMER TO RE-EVALUATE PATIENT'S MEDICATIONS UPON ROUNDING.
--- NOTE | 2018-10-14 09:30 | NUR ---
B/P RE-CHECKED. B/P 114/78
--- NOTE | 2018-10-14 16:32 | NUR ---
RECEIVED PATIENT IN D/R AT B'FAST TIME, QUIET, CALM, COOPERATIVE. B/P MEDS HELD PER INSTRUCTIONS FROM DR HAMMER. OTHER MEDS ADMIN PER ORDERS. CONT POC DIRECTED.
[2018-10-14 16:41] VITALS: BP 119/81
[2018-10-14 20:00] VITALS: BP 124/71
--- NOTE | 2018-10-14 22:53 | NUR ---
RECEIVED IN DAYROOM. SITTING IN A CHAIR WITH PEERS AT HIS SIDE. NO SIGNS OF AGGRESSION. CALM AND COOPERATIVE WITH CARE AND ASSESSMENT. REDIRECT AND REORIENT NEEDED. RESTING IN BED WITH EYES CLOSED AT THIS TIME. CONTINUE PLAN OF CARE
[2018-10-15 08:00] VITALS: BP 139/73
--- NOTE | 2018-10-15 10:16 | PN ---
PATIENT:HARRIS RAYO MEDICAL RECORD: [id number] LOCATION:[facility] ADMISSION DATE: 10/10/18 PROGRESS NOTE DATE OF SERVICE: 10/13/2018 SUBJECTIVE: The patient's case was discussed with staff. He has no new complaint. OBJECTIVE: The patient is in good behavioral control. He slept better last night. He is severely impaired cognitively. ASSESSMENT: No change in diagnoses. PLAN: Supportive and educational interventions were made. Long-term prognosis is guarded. TRANSINT:[id number] Voice Confirmation ID: [id number] DOCUMENT ID: [id number] YESSICA CARSON MD at 1016 CC: [id number] DICTATION DATE: 10/13/18 1230 RANCH HAND: 10/13/18 1241 ADM IN [place] [id number] [place] [id number]
--- NOTE | 2018-10-15 10:16 | PN ---
PATIENT:HARRIS RAYO MEDICAL RECORD: [id number] LOCATION:[facility] ADMISSION DATE: 10/10/18 PROGRESS NOTE DATE OF SERVICE: 10/14/2018 SUBJECTIVE: The patient's case was discussed with staff. He has no new complaint. OBJECTIVE: The patient denies intent to harm himself or others. He is tolerating his medicines well. ASSESSMENT: No change in diagnoses. PLAN: Current medicines have been reviewed and will be maintained. Long-term prognosis is guarded. TRANSINT:[id number] Voice Confirmation ID: [id number] DOCUMENT ID: [id number] YESSICA CARSON MD at 1016 CC: [id number] DICTATION DATE: 10/14/18913 DOOR CORE ASSEMBLER: 10/14/18 1004 ADM IN [place] [id number]
--- NOTE | 2018-10-15 17:23 | NUR ---
RECEIVED PATIENT IN PT ROOM, ASSISTED INTO RECLINER. APPETITE FAIR. MED COMPLIANT, COOPERATIVE WITH CARE. CONFUSED, CONT POC DIRECTED.
--- NOTE | 2018-10-15 22:13 | NUR ---
REC'D SITTING IN CHAIR. POOR INTERACTION WITH PEERS. COOPERATIVE WITH STAFF. NOT OBSERVED TRYING TO GET OUT OF CHAIR. ADMINISTER MEDS PER ORDERS Q SHIFT AND MONITOR COMPLIANCE. ENCOURAGE TO INTERACT WITH PEERS TWICE DAILY. MED COMPLIANT. APPROPRIATE WITH STAFF HOWEVER CONTINUES TO NOT INTERACT WITH PEERS. MOBILE ON UNIT IN WHEELCHAIR. CONTINUE POC AND PROVIDE SAFE ENVIRONMENT.
[2018-10-16 00:24] VITALS: BP 140/90
[2018-10-16 08:19] VITALS: BP 131/74
--- NOTE | 2018-10-16 11:00 | NUR ---
PATIENT IS AWAKE, CONFUSED , AND NON-VERBAL. HE UNDERSTANDS WHEN REDIRECTING, BUT DOESN'T SPEAK. CALM AND COOPERATIVE WITH CARE AND ASSESSMEMT. MEDICATION COMPLIANT CRUSHED IN APPLESAUCE. HE HAS LEFT AKA. AND UNABLE TO AMBULATE. REDIRECT AND REORIENT NEEDED. WILL CONTINUE POC AND MONITOR FOR CHANGES.
--- NOTE | 2018-10-16 15:20 | PN ---
PATIENT:HARRIS RAYO MEDICAL RECORD: [id number] LOCATION:[facility] ADMISSION DATE: 10/10/18 PROGRESS NOTE DATE OF SERVICE: 10/15/2018 SUBJECTIVE: The patient's case was discussed with staff. He has no new complaint. OBJECTIVE: The patient is not eating well. He is withdrawn and isolative, but easily aroused and will interact even if it is in a confused manner. ASSESSMENT: No change in diagnoses. PLAN: The patient will be given Megace to assist with appetite stimulation. His long-term prognosis is guarded. TRANSINT:[id number] Voice Confirmation ID: [id number] DOCUMENT ID: [id number] YESSICA CARSON MD at 1520 CC: [id number] DICTATION DATE: 10/15/18 1217 HIGH SCHOOL ART TEACHER: 10/15/18 1231 ADM IN [place] [id number] [place] [address]
--- NOTE | 2018-10-16 19:55 | NUR ---
RECEIVED IN DAYROOM. SITTING IN A RECLINER WITH STAFF AND PEERS AT HIS SIDE. TALLKING TO MHT. CALM AND COOPERATIVE WITH CARE AND ASSESSMENT. NO SIGNS OF AGGRESSION. REDIRECT AND REORIENT NEEDED. SITTING QUIETLY AT THIS TIME. CONTINUE PLAN OF CARE
[2018-10-16 20:21] VITALS: BP 138/64
--- NOTE | 2018-10-17 07:30 | NUR ---
PATIENT IS LYING IN BED TO BE DRESSED. BILATERAL BUTTOCKS REDDENED STAGE 2. TEAGADERM SMALL SIZE APPLIED TO COVER BOTH CHEEKS.
[2018-10-17 08:34] VITALS: BP 117/87
--- NOTE | 2018-10-17 09:30 | NUR ---
PT AM MEDS ADMINISTERED. PT SITTING UP IN DAY ROOM. WCTM.
--- NOTE | 2018-10-17 15:25 | PN ---
PATIENT:HARRIS RAYO MEDICAL RECORD: [id number] LOCATION:[facility] ADMISSION DATE: 10/10/18 PROGRESS NOTE DATE OF SERVICE: 10/16/2018 SUBJECTIVE: The patient's case was discussed with staff. He has no new complaint. OBJECTIVE: The patient is sleeping well and eating reasonably well. He is tolerating his current medicines. He has pretty limited insight about his situation. ASSESSMENT: No change in diagnoses. PLAN: Current medicines and therapies have been reviewed and will be maintained. Long-term prognosis is guarded. TRANSINT:[id number] Voice Confirmation ID: [id number] DOCUMENT ID: [id number] YESSICA CARSON MD at 1525 CC: [id number] DICTATION DATE: 10/16/18 1531 SYSTEMS OPERATOR: 10/16/18 1633 ADM IN [facility] [address] [place] [address]
[2018-10-17 20:00] VITALS: BP 106/72
--- NOTE | 2018-10-18 00:57 | NUR ---
B) Patient is alert and oriented to self, very confused and flat affect, I) Administered scheduled medications as ordered, assisted with needs, R) Mediation compliant, calm and cooperative, P) Continue plan of care.
--- NOTE | 2018-10-18 08:00 | NUR ---
REC'D PT SITTING IN CHAIR WITH EYES OPEN. RESP EVEN AND NONLABORED. NO ACUTE DISTRESS NOTED. PT IS CONFUSED, ORIENTED TO SELF. PT IS BKA REQUIRES ASSISTACE WITH ADL'S AND TRANSFERS. COMPLIANT WITH MEDS, ASSESSMENTS AND VITALS. PT HAS EXCORIATION NOTED TO BOTTOM AREA. CALMOSEPTINE OINTMENT TO BUTTOCKS. PT HAS AN AREA TO R HIP. DENIES ANY PAIN. CHAIR ALARM IN PLACE. WILL CONT PLAN OF CARE.
[2018-10-18 10:41] VITALS: BP 95/51
--- NOTE | 2018-10-18 12:43 | NUR ---
TEAM TREATMENT REVIEW: DIET: Mechanical soft PO INTAKE: 30% x 8 meals WT: 10/10-149lbs; 10/15-148.6lbs BM: x 1 on 10/17 MEDS: Megace, folate LABS: K-3.4(L), BUN-39(H), Bilirubin-1.38(H), Folate-5.9(L) GOALS: PO intake >/= 75%, BM q 3 days, add ensure w/ meals Will continue to monitor closely Clincial Dietitian Following
--- NOTE | 2018-10-18 15:07 | PN ---
PATIENT:HARRIS RAYO MEDICAL RECORD: [id number] LOCATION:[facility] ADMISSION DATE: 10/10/18 PROGRESS NOTE DATE OF SERVICE: 10/17/2018 SUBJECTIVE: The patient's case was discussed with staff. He has no new complaint. OBJECTIVE: The patient is in good behavioral control, but quite confused. He is not eating well, but has been prescribed Megace; hopefully, that will stimulate his appetite some. He is sleeping well. ASSESSMENT: Dementia. PLAN: The patient will be transitioned out of the hospital tomorrow or perhaps the next day. Arrangements are being made with a local [facility]. Long-term prognosis is guarded. TRANSINT:[id number] Voice Confirmation ID: [id number] DOCUMENT ID: [id number] YESSICA CARSON MD at 1507 CC: [id number] DICTATION DATE: 10/17/18 1607 STAVE HEWER: 10/17/18 2315 ADM IN [place] [id number] [place] [address]
[2018-10-18] MEDS ORDERED: ELIQUIS2.5 MG PO (15:44)
[2018-10-18] MEDS ORDERED: DESERYL PO (15:45)
[2018-10-18] MEDS ORDERED: LANOXIN125 MCG PO (15:45)
[2018-10-18] MEDS ORDERED: GEODON20 MG PO (15:45)
[2018-10-18] MEDS ORDERED: Megace ES [CHEMO] PO (15:45)
[2018-10-18] MEDS ORDERED: ENTRESTO 24 MG1 EACH PO (15:45)
[2018-10-18] MEDS ORDERED: CALMOSEPTINE OI71 GM TOPICAL (15:46)
[2018-10-18] MEDS ORDERED: FOLIC ACID1 MG PO (15:46)
[2018-10-18 20:14] VITALS: BP 103/79
--- NOTE | 2018-10-19 02:41 | NUR ---
B.) PT IS ALERT AND ORIENTED TO SELF ONLY. HE IS PLEASANT AND SOFT SPOKEN. HE HAS A LEFT BKA AND USES A WHEEL CHAIR TO AMBULATE. I.) PROVIDED PM MEDICATIONS AND REORIENT OFTEN. R.) COMPLIANT WITH ALL MEDICATIONS AND DESPITE MULTIPLE ATTEMPTS HE REMAINS CONFUSED TO SITUATION AND TIME. P.) CONTINUE PLAN OF CARE.
--- NOTE | 2018-10-19 08:28 | NUR ---
PATIENT IS LAYING IN BED WITH EYES CLOSED. RESP EVEN AND NONLABORED. NO ACUTE DISTRESS NOTED. PT HAS EXCORIATION TO BUTTOCKS. CALMOSEPTINE OINTMENT APPLIED TO BUTTOCKS. PT IS ALERT AND ORIENTED TO SELF ONLY. PT IS PLESANT WITH STAFF. COMPLIANT WITH STAFF, MEDS, VITALS AND ASSESSMENTS. CHAIR ALARM IN PLACE AND ACTIVE. WILL CONT PLAN OF CARE.
[2018-10-19 08:43] VITALS: BP 103/83
[2018-10-19 09:15] VITALS: BP 95/51
--- NOTE | 2018-10-19 13:21 | NUR ---
[facility] [place] here to pick the patient up, he is very groggy today. All belongings and paperwork provided to the marine engine driver.
--- NOTE | 2018-10-19 16:02 | PN ---
PATIENT:HARRIS RAYO MEDICAL RECORD: [id number] LOCATION:[facility] ADMISSION DATE: 10/10/18 PROGRESS NOTE DATE OF SERVICE: 10/18/2018 SUBJECTIVE: The patient's case was discussed with staff. He has no new complaint. OBJECTIVE: The patient is in good behavioral control with limited insight about his condition. He tolerates his medicines well. ASSESSMENT: No change in diagnoses. PLAN: The patient will be transitioned out of the hospital tomorrow assuming this level of improvement continues. His dementia is very advanced and even though his behaviors have improved his long-term prognosis is unfortunately exceedingly poor. TRANSINT:[id number] Voice Confirmation ID: [id number] DOCUMENT ID: [id number] YESSICA CARSON MD at 1602 CC: [id number] DICTATION DATE: 10/18/18 1534 GEOTHERMAL SYSTEM INSTALLER: 10/18/18 2257 DIS IN 10/19/18 [place] [id number] [place] [address]
--- NOTE | 2018-10-20 12:44 | PN ---
PATIENT:HARRIS RAYO MEDICAL RECORD: [id number] LOCATION:[facility] ADMISSION DATE: 10/10/18 PROGRESS NOTE DATE OF SERVICE: 10/19/2018 SUBJECTIVE: The patient's case was discussed with staff. He has no new complaint. OBJECTIVE: The patient is disorganized with limited insight about his condition. He is not showing any evidence of acute or direct dangerousness. He is eating and sleeping reasonably well. ASSESSMENT: Dementia. PLAN: The patient will be transitioned out of the hospital into the [facility]. Long-term prognosis is guarded. TRANSINT:[id number] Voice Confirmation ID: [id number] DOCUMENT ID: [id number] YESSICA CARSON MD at 1244 CC: [id number] DICTATION DATE: 10/19/18 1607 METHODS ANALYST DATA PROCESSING: 10/19/181911 DIS IN 10/19/18 [facility] [address] [place] [address]
--- NOTE | 2018-10-24 18:58 | DS ---
PATIENT:HARRIS RAYO :52 MEDICAL RECORD: [id number] DISCHARGE SUMMARY ADMISSION DATE: 10/10/18 DISCHARGE DATE: 10/19/18 IDENTIFYING DATA: The patient is 68 years old and he was admitted to the hospital on a voluntary basis because of aggression. Despite the patient's age being only 68, he unfortunately has a dementia that is advanced. He has been living in a local alf, where he has been exit seeking, disruptive and when attempts are made to redirect him, he becomes aggressive and combative. He has no recollections of these behaviors and is only oriented to person. He has attacked, threatened, and cursed staff at other times for reasons that were completely random and unprovoked or precipitated in any way. HOSPITAL COURSE: The patient was admitted to the hospital and fully evaluated from both a medical, psychological, and social standpoint. He was treated with both memory enhancing and mood stabilizing medications and showed significant improvement. He was subsequently transitioned out of the hospital and back to the alf. DISCHARGE DIAGNOSES: AXIS I: Major vascular neurocognitive disorder. AXIS II: None. AXIS III: Hypertension, left below-knee amputation, congestive heart failure, and thoracic aortic aneurysm. AXIS IV: Moderate. AXIS V: Global assessment of functioning is 40. PLAN: At the time of discharge, the patient was in good behavioral control, but severely impaired cognitively. He is not currently representing an acute risk to himself or others and can reasonably be managed in a long-term care setting. TRANSINT:[id number] Voice Confirmation ID: [id number] DOCUMENT ID: [id number] YESSICA CARSON MD at 1858 CC: [id number] DICTATION DATE: 10/23/18 1029 DISPLAY MECHANIC: 10/24/18 0317 DIS IN 10/19/18 [facility] [address] [place] [address]
== END 2018-10-19 13:21 | DRG 884 ==
LOC: D.PSYCH 17:57
PROVIDERS: ADMIT Psychiatry & Neurology Psychiatry; ATTEND Psychiatry & Neurology Psychiatry
DX: F01.51 Vascular dementia, unspecified severity, with behavioral disturbance (principal); I50.22 Chronic systolic (congestive) heart failure; B37.49 Other urogenital candidiasis; N17.9 Acute kidney failure, unspecified; I11.0 Hypertensive heart disease with heart failure; R63.0 Anorexia; I48.91 Unspecified atrial fibrillation; K59.00 Constipation, unspecified; I71.2 Thoracic aortic aneurysm, without rupture; Z89.512 Acquired absence of left leg below knee; R26.9 Unspecified abnormalities of gait and mobility; E88.09 Other disorders of plasma-protein metabolism, not elsewhere classified; I49.9 Cardiac arrhythmia, unspecified